=== PATIENT | female | born 1935 | race Caucasian/White ===

== ENCOUNTER 2023-11-27 15:27 | Outpatient (OUT) | payer MEDICARE, OTHER, SELFPAY ==
[2023-11-27 16:06] LABS: Basophils Absolute Auto 0.1 10^3/uL (0.0-0.1); Basophils Percent Auto 0.4 % (0.2-2.0); Eosinophils Absolute Auto 0.2 10^3/uL (0.0-0.7); Eosinophils Percent Auto 1.3 % (0.9-7.0); Hemoglobin 8.9 g/dL (12.0-16.0); Immature Granulocytes Abs Auto 0.05 10^3/uL (0.00-0.03); Immature Granulocytes Pct Auto 0.4 % (0.0-0.5); Lymphocytes Absolute Auto 1.2 10^3/uL (1.2-3.8); Lymphocytes Percent Auto 8.7 % (20.5-60.0); Mean Corpuscular HGB Conc 30.7 g/dL (29.9-35.2); Mean Corpuscular Hemoglobin 31.3 pg (26.7-34.0); Mean Corpuscular Volume 102.1 fL (81.0-99.0); Mean Platelet Volume 11.7 fL (9.5-13.5); Monocytes Absolute Auto 1.1 10^3/uL (0.3-0.8); Monocytes Percent Auto 8.1 % (1.7-12.0); Neutrophils Absolute Auto 11.1 10^3/uL (1.4-6.5); Neutrophils Percent Auto 81.1 % (43.0-75.0); Platelet Count 223 10^3/uL (150-450); Red Blood Count 2.84 10^6/uL (4.20-5.40); Red Cell Distribution Width 14.1 % (11.0-15.0); White Blood Count 13.7 10^3/uL (4.0-11.0)
[2023-11-27 16:39] LABS: Alanine Aminotransferase 16 U/L (14-59); Albumin Globulin Ratio 0.6; Albumin Level 2.5 g/dL (3.4-5.0); Alkaline Phosphatase 39 U/L (46-116); Anion Gap 13.3; Aspartate Amino Transferase 16 U/L (15-37); BUN Creatinine Ratio 28.1; Bilirubin Total 0.7 mg/dL (0.2-1.0); Calcium 8.3 mg/dL (8.5-10.1); Carbon Dioxide 26.8 mmol/L (21.0-32.0); Chloride 104 mmol/L (98-107); Estimated GFR (African America 37 (>=60); Estimated GFR (Non-African Ame 31 (>=60); Free T3 1.52 pg/mL (2.18-3.98); Globulin 3.9 g/dL; Glucose 148 mg/dL (74-106); Potassium 5.1 mmol/L (3.5-5.1); Sodium 139 mmol/L (136-145); Thyroid Stimulating Hormone 0.426 uIU/mL (0.358-3.740); Total Protein 6.4 g/dL (6.4-8.2)
== END 2023-11-27 15:28 | disposition home or self-care (01) ==
LOC: LAB 15:30
PROVIDERS: PCP Family Medicine; Visit Provider Family Medicine
DX: I25.5 Ischemic cardiomyopathy (principal); I10 Essential (primary) hypertension
CPT/HCPCS: 36415; 80053; 83880; 84436; 84443; 84481; 85025

== ENCOUNTER 2025-10-04 16:34 | Observation (INO) | payer MEDICARE, OTHER, SELFPAY ==
--- OUTSIDE RECORDS SUMMARY | 2025-05-05 10:00 | XMS_ITS ---
Author Organization The [facility] in [place] Address [address] [place] [address] Care Team Providers Care Systems Mgr Name Role Phone Hermelindo Martinez Primary Care Provider [phone] REASON FOR VISIT Medicare Wellness Encounters Encounter Location Date Provider Diagnosis [address] [place] [address] 05/05/2025 Hermelindo Martinez Plan Of Treatment No Information Progress Notes * Bernarda LORD JDOB: (89 yo F)Acc No.[id number]:05/05/2025 UNLOCKED PROGRESS NOTE Progress Note Patient: Bernarda LORENZO :?Yared Martinez (TTC), MDDOB:1935???Age: 89 Y???Sex:FemaleDate:05/05/2025Phone:[phone]:[address] [place] [address] [id number] Subjective: * Chief Complaints: * 1 . Medicare Wellness. * Medical History: Objective: * Vitals: Assessment: Plan: * Treatment: * * Electronic signature of Hermelindo Martinez MD, [id number] on 10/04/2025 at 02:59 PM EST Sign off status: PendingVisit Status:?CANC (Cancelled) * Provider: Cheri Martinez MD (TTC) Date: 0 05/05/2025 Generated for Printing/Faxing/eTransmitting on:?10/04/2025 02:59 PM EST
--- OUTSIDE RECORDS SUMMARY | 2025-05-05 10:00 | XMS_ITS ---
Author Organization [facility] in [place] Address [address] [place] [address] Care Team Providers Care Drug Abuse Technician Name Role Phone Hermelindo Martinez Primary Care Provider REASON FOR VISIT Medicare Wellness Encounters Encounter Location Date Provider Diagnosis [facility] [address] [place] [address] 05/05/2025 Hermelindo Martinez Plan Of Treatment Next Appt Details Provider Name:Hermelindo Martinez, 02:30:00 PM, [address] [place], [address], Progress Notes * LORD, Bernarda JDOB: (89 yo F)Acc No.[id number]:05/05/2025 UNLOCKED PROGRESS NOTE Progress Note Patient: Anna LORENZOcy Dennis :?Yared Martinez ([facility]), MDDOB:1935???Age: 89 Y???Sex:FemaleDate:05/05/2025Phone:[phone]:[address] [facility] [id number] Subjective: * Chief Complaints: * 1 . Medicare Wellness. * Medical History: Objective: * Vitals: Assessment: Plan: * Treatment: * * Electronic signature of Hermelindo Martinez MD, [id number] on 10/07/2025 at 02:37 PM EST Sign off status: PendingVisit Status:?CANC (Cancelled) * Provider: Cheri Martinez ([facility])MD Date: 0 05/05/2025 Generated for Printing/Faxing/eTransmitting on:?10/07/2025 02:37 PM EST
--- OUTSIDE RECORDS SUMMARY | 2025-10-03 10:00 | XMS_ITS ---
Author Organization [facility] [place] Address [address] [place] [address] Care Team Providers Care Electric Meter Installer Name Role Phone Hermelindo Martinez Primary Care Provider Allergies Allergen (clinical drug ingredient) Drug/Non Drug Allergy documented on EMR Reaction Allergy Type Onset Date Status oxycodone oxyCODONE HCl vomiting Drug Allergy Activeacetaminophen / oxycodonePercocetvomitingDrug AllergyActiveVicodinvomiting Drug AllergyActive REASON FOR VISIT yearly wellness Medications Medication SIG (Take, Route, Frequency, Duration) Notes Start Date End Date Status Diabetic Shoe - - Daily ActiveEntresto 97-103 MG1 tablet Orally Twice a dayActiveDexcom G6 Veneer Glue Jointer Feedback -as directedActiveDexcom G6 Transmitter -as directedActiveDexcom G6 Sensor -as directedActiveBlood Glucose Meter -Use glucometer to monitor glucose daily DX E11.9; Duration: 365 days5ActiveBasaglar KwikPen 100 UNIT/ML 20 units Subcutaneous at bedtime; Duration: 30 days dx E11.9 ActiveCarvedilol 25 MG1 tablet with food Orally Twice a day; Duration: 90 days ActiveCarafate 1 GM1 tablet on an empty stomach Orally ac and hsActiveCytomel 5 MCG2 tablets Orally Once a day; Duration: 90 days4ActiveAllopurinol 100 MG1 tablet Orally Once a day; Duration: 90 daysActivePlavix 75 MG1 tablet Orally Once a dayActiveLasix 40 MG1 tablet Orally Once a day; Duration: 3 days 5ActiveFerrous Sulfate 325 (65 Fe) MG1 tablet Orally DailyActiveTest Strips -Use 1 strip to monitor glucose daily DX E11.9; Duration: 90 days 5ActivePantoprazole Sodium 40 MG1 tablet Orally BIDActiveIsosorbide Dinitrate 20 MG1 tablet Orally Twice a dayActiveNovoLOG FlexPen 100 UNIT/ML sliding scale 3 units Subcutaneous tid; Duration: 30 days dx: E11.9 ActivePen [place] /16 31G X 8 MMas directedActive Social History Tobacco Use: Social History Observation Description Date Details (start date - stop date) Never Smoker NA - NA Tobacco Use/Smoking Question Answer Notes Patient is a nonsmoker AUDIT-C (Standard) Question Answer Notes Did you have a drink containing alcohol in the p ast year? No [id number] Problems Problem Type SNOMED Code ICD Code Onset Dates Problem Status W/U Status Risk Notes Problem Gastritis (0580190) Gastritis (K29.70) Activeconfirmed Vital Signs Weight 170 lbs 10/03/2025 Height 70 in 10/03/2025 Blood pressure systolic 136 mm Hg 10/03/20 25 Blood pressure diastolic 80 mm Hg 025 BMI 24.39 kg/m2 10/03/2025 Encounters Encounter Location Date Provider Diagnosis [facility] [address] [place] [address] 10/03/2025 Hermelindo Martinez Type 2 diabetes anamaria itus with proliferative diabetic retinopathy with macular edema, bilateral E11.3513 ; Pulmonary hypertension I27.20 ; TIA (transient ischemic attack) G45.9 ; Gastritis K29.70 and CHF (congestive heart failure) I50.9 Assessments Encounter Date Diagnosis (ICD Code) Assessment Notes Treatment Notes Treatment Clinical Notes Section Notes 10/03/2025 Type 2 diabetes anamaria itus with proliferative diabetic retinopathy with macular edema, bilateral (ICD-10 - E11.3513) 10/03/2025Pulmonary hypertension (ICD-10 - I27.20)10/03/2025TIA (transient ischemic attack) (ICD-10 - G45.9)10/03/2025Gastritis (ICD-10 - K29.70)10/03/2025 CHF (congestive heart failure) (ICD-10 - I50.9)seeing cardiologu this week Plan Of Treatment Medication Medication Name Sig Start Date Stop Date Notes Lasix 40 MG 1 tablet Orally Once a day; Duration: 3 d ays 10/03/2025 Pantoprazole Sodium 40 MG1 tablet Orally BIDTreatment Notes Assessment Notes CHF (congestive heart failure) seeing ca rdiologu this week Pending Test Test Name Order Date HEMOGLOBIN A1C (GLYCO) 10/03/2025 IRON, TOTAL 10/03/2025 LIPID PANEL (CHOL/TRIG/HDL/LDL) 10/03/20 25 VITAMIN D, 25 LEVEL (TOTAL) 10/03/2025 Urinalysis Microscopic 10/03/2025 Insulin Level 10/03/2025 High Sensitivity Troponin 10/03/2025 STOOL OCCULT BLOOD 10/03/2025 BNP 10/03/2025 CULTURE URINE 10/03/2025 THYROID PANEL (T4/TSH/FREE T3) CMP (COMP MET COVARRUBIAS) w/eGFR CKD-EPI 2024 CBC WITH DIFF 10/03/2025 Progress Notes * Bernarda LORD DennisDOB: 7 (89 yo F)Acc No.[id number]:10/03/2025 UNLOCKED PROGRESS NOTE Progress Note Patient: Bernarda LORENZO :?Yared Martinez ([facility]), MDDOB:1935???Age: 89 Y???Sex:FemaleDate:10/03/2025Phone:[phone]:[address] [facility], [place], [id number] In:02:49 PM ESTCheck Out:03:48 PM EST Subjective: * Chief Complaints: * 1 . Yearly wellness. * HPI: ???General:? DM - sgare well controlle on insulin SS HTn - stabel here CHF - switching to [facility] GERD - off meds. * ROS: ???EENT:?hearing changes?denies.?visual changes?denies. non-healing mouth sores?denies.?swollen glands or neck lumps?denies.?hoarseness?denies.?sore throat?denies.?difficulty swallowing?denies.?nose bleeds?denies.?nasal congestion?denies.?ear ache?denies.?ear discharge denies.?ringing in ears?denies.?light sensitivity?denies.?eye pain?denies.?blurring?denies.?eye irritation?denies.?double vision?denies. vision loss?denies.?General/Constitutional:?Sweats:?Denies.?Fatigue?denies.?Sleep proble ms?denies.?Anorexia?denies.?Malaise?denies.?Weight loss?denies. Fatigue or Weakness?denies.?Fever or Chills?denies.?Cardiovascular:?Shortness of Breath w/lying flat?denies.?Lightheadedne ss/dizziness?denies.?Chest tightness/ heavy pressure?denies.?Swelling of legs, a nkles, or feet?denies.?Waking up with shortness of breath?denies.?Chest pain&#16 0;denies.?Palpitations?denies.?Weight gain?denies.?Respiratory:?Chronic or frequent cough?denies.?Coughing up blood&#1 60;denies.?Difficulty breathing?denies.?Productive cough?denies.?Snoring&#1 60;denies.?Shortness of breath that awakens from sleep (PND)?denies.?Chest pain? denies.?Sputum production?denies.?Wheezing?denies.?Musculoskeletal:?Joint pain?denies.?Joint Fluid?denies.?Backpain?denies.?Knee pain?denies.?Neck pain?denies.?Joint Stiffness?denies.?Muscle cramps?denies.?Weakness of muscles?denies.?Arthritis?denies.?Muscle aches?denies.?Pain in shoulder(s)?denies.?Swollen joints?denies.? * Medical History: O verweight (BMI 25.0-29.9), At risk for falls, Gout, Acute bronchitis, Ischemic cardiomyopathy, Cardiac LV ejection fraction 21-40%, CAD (coronary artery disease), Severe left ventricular systolic dysfunction, Mitral valve regurgitation, Aortic valve sclerosis, Atrial enlargement, left, Acute non-ST elevation myocardial infarction (NSTEMI), Pulmonary hypertension, TIA (transient ischemic attack), Chronic midline low back pain without sciatica, Cystocele, midline, Well adult, Conductive hearing loss, bilateral, Pseudophakia, Unspecified premature depolarization, Chronic kidney disease, stage III (moderate), Hypertension, Type 2 diabetes mellitus with proliferative diabetic retinopathy with macular edema, bilateral, Osteoarthritis, Status post amputation of toe, CHF (congestive heart failure), Hemorrhoids. * Surgical History: h eart cath 08/2020, colonoscopy 12/2013, EGD- biopsy 11/24/23. * Hospitalization/Major Diagno stic Procedure: h y[pg;ycemia 03/2016, cardiomyopathy 08/2020, dehydration 11/2023. * Family History: F ather: 83 yrs, diagnosed with Cancer. M other: 66 yrs, diagnosed with Kidney Disease. B rother(s): 75 yrs, diagnosed with Kidney Disease. S on(s): alive, diagnosed with Diabetes. D gueroer(s): alive. 4 son(s) , 1 daughter(s) - healthy. . * Social History: ???Tobacco Use:?Tobacco Use/Smoking?Patient is a?nonsmoker ???Drug/Alcohol:?AUDIT-C (Standard)?Did you have a drink containing alcohol in the past year??No ?Points?0 ?Interpretation?Negative * Medications: T aking Allopurinol 100 MG Tablet 1 tablet Orally Once a day , Taking Basaglar KwikPen(Insulin Glargine) 100 UNIT/ML Solution Pen-injector 20 units Subcutaneous at bedtime dx E11.9, Taking Blood Glucose Meter - - Use glucometer to monitor glucose daily DX E11.9 , Taking Carafate(Sucralfate) 1 GM Tablet 1 tablet on an empty stomach Orally ac and hs , Taking Carvedilol 25 MG Tablet 1 tablet with food Orally Twice a day , Taking Cytomel(Liothyronine Sodium) 5 MCG Tablet 2 tablets Orally Once a day , Taking Dexcom G6 Veneer Glue Jointer Feedback(Continuous Glucose Veneer Glue Jointer Feedback) - Device as directed , Taking Dexcom G6 Sensor(Continuous Glucose Sensor) - Miscellaneous as directed , Taking Dexcom G6 Transmitter(Continuous Glucose Transmitter) - Miscellaneous as directed , Taking Diabetic Shoe - As Ordered - Daily , Taking Entresto(Sacubitril- Valsartan) 97-103 MG Tablet 1 tablet Orally Twice a day , Taking Ferrous Sulfate 325 (65 Fe) MG Tablet 1 tablet Orally Daily , Taking Isosorbide Dinitrate 20 MG Tablet 1 tablet Orally Twice a day , Taking NovoLOG FlexPen(Insulin Aspart) 100 UNIT/ML Solution Pen-injector sliding scale 3 units Subcutaneous tid dx: E11.9, Taking Pantoprazole Sodium 40 MG Tablet Delayed Release 1 tablet Orally BID , Taking Pen [place] 5/16 31G X 8 MM Miscellaneous as directed , Taking Plavix(Clopidogrel Bisulfate) 75 MG Tablet 1 tablet Orally Once a day , Taking Test Strips - - Use 1 strip to monitor glucose daily DX E11.9 , Medication List reviewed and reconciled with the patient * Allergies: V icodin: vomiting - Allergy, Percocet: vomiting - Allergy, oxyCODONE HCl: vomiting - Allergy. Objective: * Vitals: W t:170lbs, Ht: 70 in, BP:136/80mm Hg, BMI:24.39Index, Ht-cm: 177.8 cm, Wt-k.11 kg. * Examination: ???Physical Exam: ?GENERAL:?well developed, well nourished, in no acute distress.?HEAD:?normocephalic/atraumatic.?EYES:?pupils equal, round and reactive to light, conjunctivae and sclerae normal.?EARS:?no deformity or lesion of external ear, canals and TM appear normal bilaterally, TM's intact, not inflamed with normal light reflex, hearing grossly normal to conversational speech.?NOSE:?no deformity, discharge, inflammation, or lesions. ?MOUTH:?mucous membranes moist, normal oropharynx and posterior pharynx without lesions or exudates, tongue normal, dentition normal.?NECK:?neck supple, no masses or palpable cervical nodes, trachea midline, thyroid without nodules, masses, tenderness, or enlargement.?CHEST:?no chest wall deformity, no chest wall tenderness. ?LUNGS:?normal respiratory effort and clear to auscultation, no wheezes, rales, or rhonchi, good air exchange.?CARDIO:?regular rate and rhythm, normal S1 and S2, nor murmur, rub, or gallop.?PULSES:?normal capillary refill.?ABDOMEN:?soft, non-distended, non-tender, no masses.?MUSCULOSKELETAL:?no deformity or scoliosis noted, normal range of motion, joints normal, no erythema, edema, effusion, or ecchymosis.?EXTREMITY:?no clubbing, cyanosis, edema, or deformity withnormal ROM in both upper and lower bilateral extremities.?NEUROLOGIC:?grossly normal.?SKIN:?no rashes, ulcerations, or suspicious lesions.?LYMPH NODES:?no cervical adenopathy, nodes normal.?MENTAL STATUS:?alert and oriented x3, normal mood and affect.? Assessment: * Assessment: 1.?Type 2 diabetes mellitus with proliferative diabetic retinopathy with macular edema, bilateral - E11.3513 (Primary)???2.?Pulmonary hypertension - I27.20???3. ?TIA (transient ischemic attack) - G45.9???4.?Gastritis - K29.70? ?5.?CHF (congestive heart failure) - I50.9??? Plan: * Treatment: Refill Pantoprazole Sodium Tablet Delayed Release, 40 MG, 1 tablet, Orally, BID, 60, Refills 11; Start Lasix Tablet, 40 MG, 1 tablet, Orally, Once a day, 3 days, 3 Tablet, Refills 0.?LAB: HEMOGLOBIN A1C (GLYCO) ?LAB: IRON, TOTAL ?LAB: LIPID PANEL (CHOL/TRIG/HDL/LDL) ?LAB: VITAMIN D, 25 LEVEL (TOTAL) ?LAB: Urinalysis Microscopic ?LAB: Insulin Level ?LAB: High Sensitivity Troponin ?LAB: STOOL OCCULT BLOOD ?LAB: BNP ?LAB: CULTURE URINE ?LAB: THYROID PANEL (T4/TSH/FREE T3) ?LAB: CMP (COMP MET COVARRUBIAS) w/eGFR CKD-EPI ?LAB: CBC WITH DIFF2.?Pulmonary hypertension?LAB: HEMOGLOBIN A1C (GLYCO) ?LAB: IRON, TOTAL ?LAB: LIPID PANEL (CHOL/TRIG/HDL/LDL) ?LAB: VITAMIN D, 25 LEVEL (TOTAL) ?LAB: Insulin Level ?LAB: STOOL OCCULT BLOOD ?LAB: THYROID PANEL (T4/TSH/FREE T3) ?LAB: CMP (COMP MET COVARRUBIAS) w/eGFR CKD-EPI ?LAB: CBC WITH DIFF3.?TIA (transient ischemic attack)?LAB: HEMOGLOBIN A1C (GLYCO) ?LAB: IRON, TOTAL ?LAB: LIPID PANEL (CHOL/TRIG/HDL/LDL) ?LAB: VITAMIN D, 25 LEVEL (TOTAL) ?LAB: Insulin Level ?LAB: STOOL OCCULT BLOOD ?LAB: THYROID PANEL (T4/TSH/FREE T3) ?LAB: CMP (COMP MET COVARRUBIAS) w/eGFR CKD-EPI ?LAB: CBC WITH DIFF4.?Gastritis?LAB: HEMOGLOBIN A1C (GLYCO) ?LAB: IRON, TOTAL ?LAB: LIPID PANEL (CHOL/TRIG/HDL/LDL) ?LAB: VITAMIN D, 25 LEVEL (TOTAL) ?LAB: Insulin Level ?LAB: STOOL OCCULT BLOOD ?LAB: THYROID PANEL (T4/TSH/FREE T3) ?LAB: CMP (COMP MET COVARRUBIAS) w/eGFR CKD-EPI ?LAB: CBC WITH DIFF5.?CHF (congestive heart failure)?LAB: HEMOGLOBIN A1C (GLYCO) ?LAB: IRON, TOTAL ?LAB: LIPID PANEL (CHOL/TRIG/HDL/LDL) ?LAB: VITAMIN D, 25 LEVEL (TOTAL) ?LAB: Insulin Level ?LAB: STOOL OCCULT BLOOD ?LAB: THYROID PANEL (T4/TSH/FREE T3) ?LAB: CMP (COMP MET COVARRUBIAS) w/eGFR CKD-EPI ?LAB: CBC WITH DIFF Notes: seeing cardiologu this week?? * Preventive Medicine: ??Screenings/Counseling:?FALL RISK SCREENING?Fall Risk Assessment:?No falls in the past year * * Electronic signature of Hermelindo Martinez MD, [id number] on 10/04/2025 at 02:59 PM EST Sign off status: PendingVisit Status:?CHK (Check Out) * Provider: Cheri Martinez ([facility])MD Date: 1 12/04/2024 Generated for Printing/Faxing/eTransmitting on:?10/04/2025 02:59 PM EST History and Physical Notes * HPI (History of Present Illness) CategorySub-CategoryDetailNotesCategory NotesGeneral DM - sgare well controlle on insulin SS HTn - stabel here CHF - switching to [facility] GERD - off meds Examination CategorySub-CategoryDetailNotesCategory NotesPhysical ExamGENERAL:well developed, well nourished, in no acute distressHEAD:normocephalic/atraumatic EYES:pupils equal, round and reactive to light, conjunctivae and sclerae normal EARS:no deformity or lesion of external ear, canals and TM appear normal bilaterally, TM's intact, not inflamed with normal light reflex, hearing grossly normal to conversational speechNOSE:no deformity, discharge, inflammation, or lesionsMOUTH:mucous membranes moist, normal oropharynx and posterior pharynx without lesions or exudates, tonguenormal, dentition normalNECK:neck supple, no masses or palpable cervical nodes, trachea midline, thyroid without nodules, masses, tenderness, or enlargementCHEST:no chest wall deformity, no chest wall tendernessLUNGS:normal respiratory effort and clear to auscultation, no wheezes, rales, or rhonchi, good air exchangeCARDIO:regular rate and rhythm, normal S1 and S2, nor murmur, rub, or gallopPULSES:normal capillary refillABDOMEN:soft, non-distended, non-tender, no massesRECTAL:MUSCULOSKELETAL:no deformity or scoliosis noted, normal range of motion, joints normal, no erythema, edema, effusion, or ecchymosisEXTREMITY:no clubbing, cyanosis, edema, or deformity with normal ROM in both upper and lower bilateral extremitiesNEUROLOGIC:grossly normalSKIN:no rashes, ulcerations, or suspicious lesionsLYMPH NODES:no cervical adenopathy, nodes normalMENTAL STATUS:alert and oriented x3, normal mood and affect
--- OUTSIDE RECORDS SUMMARY | 2025-10-03 10:00 | XMS_ITS ---
Author Organization The [facility] in [place] Address [address] [place] [address] Care Team Providers Care Marketing Planner Name Role Phone Hermelindo Martinez Primary Care Provider Allergies Allergen (clinical drug ingredient) Drug/Non Drug Allergy documented on EMR Reaction Allergy Type Onset Date Status oxycodone oxyCODONE HCl vomiting Drug Allergy Activeacetaminophen / oxycodonePercocetvomitingDrug AllergyActiveVicodinvomiting Drug AllergyActive Results Component Value Reference Range Notes BNP Reviewed date:10/05/2025 05:55:34 PM Interpretation: Performing Lab: Notes/Report: [facility] , Pro B Type Natriuretic Pept 2056.0 <=1800.0 p g/mL RESULTS CALLED TO ANA LILIA SHEA RN @BY Jacqueline Gomes at 2306 Performing Lab: see note ML - [facility] REASON FOR VISIT yearly wellness Medications Medication SIG (Take, Route, Frequency, Duration) Notes Start Date End Date Status Diabetic Shoe - - Daily ActiveEntresto 97-103 MG1 tablet Orally Twice a dayActiveDexcom G6 Research Environmental Scientist -as directedActiveDexcom G6 Transmitter -as directedActiveDexcom G6 [...] tid; Duration: 30 days dx: E11.9 ActivePen Toluca 03/04 31G X 8 MMas directedActive Social History Tobacco Use: Social History Observation Description Date Details (start date - stop date) Never Smoker NA - NA Tobacco Use/Smoking Question Answer Notes Patient is a nonsmoker AUDIT-C (Standard) Question Answer Notes Did you have a drink containing alcohol in the p ast year? No Ftnjit3BaubwrvbkoidnfNgtgnxkb Problems Problem Type SNOMED Code ICD Code Onset Dates Problem Status W/U Status Risk Notes Problem Gastritis (9793316) Gastritis (K29.70) Activeconfirmed Vital Signs Weight 170 lbs 10/03/2025 Height 70 in 10/03/2025 Blood pressure systolic 136 mm Hg 10/03/20 25 Blood pressure diastolic 80 mm Hg 025 BMI 24.39 kg/m2 10/03/2025 Encounters Encounter Location Date Provider Diagnosis [facility] [address] [place] [address] 10/03/2025 Hermelindo Martinez Type 2 diabetes anamaria [...] Sensitivity Troponin 10/03/2025 STOOL OCCULT BLOOD 10/03/2025 CULTURE URINE 10/03/2025 THYROID PANEL (T4/TSH/FREE T3) CMP (COMP MET COVARRUBIAS) w/eGFR CKD-EPI 2024 CBC WITH DIFF 10/03/2025 Next Appt Details Provider Name:Hermelindo Braden Michelle, 02:30:00 PM, [address] [place], [address], Progress Notes * Bernarda LORDDOB: 7 (89 yo F)Acc No.[id number]:10/03/2025 Progress Note Patient: Anna LORENZOsoraida Collins :?Yared Barcenas Michelle ([facility]), MDDOB:1935???Age: 89 Y???Sex:FemaleDate:10/03/2025Phone:[phone]:[address] [facility], [place], [id number] In:02:49 PM ESTCheck Out:03:48 PM EST Subjective: * Chief Complaints: * Y early wellness * HPI: ???General:? DM - sgare well controlle on insulin SS HTn - stabel here CHF - switching to [facility] GERD - off meds. * ROS: ???EENT:?hearing [...] of muscles?denies.?Arthritis?denies.?Muscle aches?denies.?Pain in shoulder(s)?denies.?Swollen joints?denies.? * Active Problem List H90.0 Conductive hearing l oss, bilateral Modified On:02/15/2023 Status:pgmxkjcweO44.5Ischemic cardiomyopathy Modified On:11/27/2023 Status:ruuktuoffB65.40Unspecified premature depolarization Modified On:02/15/2023 Status:ddqfuaxakB11.11Cystocele, midline Modified On:02/15/2023 Status:tbxwldvkvS05Pdrxvvepqqyb Modified On:12/26/2023 Status:akrsbwuavO81.90Osteoarthritis Modified On:02/15/2023 Status:hgwfjomwlM72.9CHF (congestive heart failure) Modified On:02/15/2023 Status:dhmfuvbzcE37.10CAD (coronary artery disease) Modified On:02/15/2023 Status:hprtakbfsT16.9Gout Modified On:02/15/2023 Status:wnekhmopeL27.9TIA (transient ischemic attack) Modified On:02/15/2023 Status:rrmygysvnY81.0Mitral valve regurgitation Modified On:02/15/2023 Status:ykzpbtoyvM73.9Acute bronchitis Modified On:02/15/2023 Status:nucbwlmthQ42.1Pseudophakia Modified On:02/15/2023 Status:tbdqivticQ23.00Well adult Modified On:02/15/2023 Status:weuleiwrrK90.9Hemorrhoids Modified On:02/15/2023 Status:mkexyzcvtM21.3Overweight (BMI 25.0-29.9) Modified On:02/15/2023 Status:hizfhogfzZ42.8Aortic valve sclerosis Modified On:02/15/2023 Status:wfvfetlibF84.9Severe left ventricular systolic dysfunction Modified On:02/15/2023 Status:lmsmmrtymI88.81At risk for falls Modified On:02/15/2023 Status:wmlxcatjfV65.7Atrial enlargement, left Modified On:02/15/2023 Status:vioorndamW13.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, bilateral Modified On:02/19/2023 Status:exkrgfpsjM97.4Acute non-ST elevation myocardial infarction (NSTEMI) Modified On:02/15/2023 Status:uxegutczeG81.20Pulmonary hypertension Modified On:02/15/2023 Status:esyktnpjuE70.30Cardiac LV ejection fraction 21-40% Modified On:02/15/2023 Status:jsdzbkwmrJ70.429Status post amputation of toe Modified On:02/15/2023 Status:fcyimtkslY69.30Chronic kidney disease, stage III (moderate) Modified On:02/15/2023 Status:ymasidepyH82.50Chronic midline low back pain without sciatica Modified On:02/15/2023 Status:bapkgbjzvC72.89Pulmonary vascular congestion Modified On:11/24/2023 Status:jtzcbyiuvO87.70Gastritis Modified On:10/03/2025 Status:confirmed * Medical History: * Surgical History: h eart cath 08/2020colonoscopy 12/2013EGD- biopsy 11/24/23 * Hospitalization/Major Diagno stic Procedure: h y[pg;ycemia 03/2016cardiomyopathy 08/2020dehydration 11/2023 * Family History: F ather: 83 yrs, [...] past year??No ?Points?0 ?Interpretation?Negative * Medications: T akingAllopurinol 100 MG Tablet 1 tablet Orally Once a day Basaglar KwikPen(Insulin Glargine) 100 UNIT/ML Solution Pen-injector 20 units Subcutaneous at bedtime dx E11.9Blood Glucose Meter - - Use glucometer to monitor glucose daily DX E11.9 Carafate(Sucralfate) 1 GM Tablet 1 tablet on an empty stomach Orally ac and hs Carvedilol 25 MG Tablet 1 tablet with food Orally Twice a day Cytomel(Liothyronine Sodium) 5 MCG Tablet 2 tablets Orally Once a day Dexcom G6 Research Environmental Scientist(Continuous Glucose Research Environmental Scientist) - Device as directed Dexcom G6 Sensor(Continuous Glucose Sensor) - Miscellaneous as directed Dexcom G6 Transmitter(Continuous Glucose Transmitter) - Miscellaneous as directed Diabetic Shoe - As Ordered - Daily Entresto(Sacubitril-Valsartan) 97-103 MG Tablet 1 tablet Orally Twice a day Ferrous Sulfate 325 (65 Fe) MG Tablet 1 tablet Orally Daily Isosorbide Dinitrate 20 MG Tablet 1 tablet Orally Twice a day NovoLOG FlexPen(Insulin Aspart) 100 UNIT/ML Solution Pen-injector sliding scale 3 units Subcutaneous tid dx: E11.9Pantoprazole Sodium 40 MG Tablet Delayed Release 1 tablet Orally BID Pen Toluca 5/16 31G X 8 MM Miscellaneous as directed Plavix(Clopidogrel Bisulfate) 75 MG Tablet 1 tablet Orally Once a day Test Strips - - Use 1 strip to monitor glucose daily DX E11.9 Medication List reviewed and reconciled with the patientTaking Allopurinol 100 MG Tablet 1 tablet Orally Once a day Taking Basaglar KwikPen(Insulin Glargine) 100 UNIT/ML Solution Pen-injector 20 units Subcutaneous at bedtime dx E11.9Taking Blood Glucose Meter - - Use glucometer to monitor glucose daily DX E11.9 Taking Carafate(Sucralfate) 1 GM Tablet 1 tablet on an empty stomach Orally ac and hs Taking Carvedilol 25 MG Tablet 1 tablet with food Orally Twice a day Taking Cytomel(Liothyronine Sodium) 5 MCG Tablet 2 tablets Orally Once a day Taking Dexcom G6 Research Environmental Scientist(Continuous Glucose Research Environmental Scientist) - Device as directed Taking Dexcom G6 Sensor(Continuous Glucose Sensor) - Miscellaneous as directed Taking Dexcom G6 Transmitter(Continuous Glucose Transmitter) - Miscellaneous as directed Taking Diabetic Shoe - As Ordered - Daily Taking Entresto(Sacubitril-Valsartan) 97-103 MG Tablet 1 tablet Orally Twice a day Taking Ferrous Sulfate 325 (65 Fe) MG Tablet 1 tablet Orally Daily Taking Isosorbide Dinitrate 20 MG Tablet 1 tablet Orally Twice a day Taking NovoLOG FlexPen(Insulin Aspart) 100 UNIT/ML Solution Pen-injector sliding scale 3 units Subcutaneous tid dx: E11.9Taking Pantoprazole Sodium 40 MG Tablet Delayed Release 1 tablet Orally BID Taking Pen Toluca 5/16 31G X 8 MM Miscellaneous as directed Taking Plavix(Clopidogrel Bisulfate) 75 MG Tablet 1 tablet Orally Once a day Taking Test Strips - - Use 1 strip to monitor glucose daily DX E11.9 Medication List reviewed and reconciled with the patient * Allergies: V icodin: vomiting - AllergyPercocet: vomiting - AllergyoxyCODONE HCl: vomiting - Allergyno[Allergies Verified] Objective: * Vitals: W t:170lbs, Ht: 70 [...] DIFF Notes: seeing cardiologu this week?? * Procedure Codes: * Preventive Medicine: ??Screenings/Counseling:?FALL RISK SCREENING?Fall Risk Assessment:?No falls in the past year * * Sign off status: CompletedVisit Status:?CHK (Check Out) true * Provider: Cheri Martinez ([facility])MD Date: 1 12/04/2024 Generated for Printing/Faxing/eTransmitting on:?10/07/2025 02:37 PM EST History and Physical Notes * HPI (History of Present Illness) CategorySub-CategoryDetailNotesCategory NotesGeneral DM - sgare well controlle on insulin SS HTn - stabel here CHF - switching to [facility] GERD - off meds Examination CategorySub-CategoryDetailNotesCategory NotesPhysical [...]
--- OUTSIDE RECORDS SUMMARY | 2025-10-03 10:38 | XMS_ITS ---
Author Organization [facility] in [place] Address [address] [place] [address] Care Team Providers Care Sugar Cane Farm Manager Name Role Phone Fabiánremedios Hermelindo Primary Care Provider Reason For Referral Diagnosis 1 CHF (congestive hear t failure) (I50.9) Diagnosis 2 Encounter for Medica re annual wellness exam (Z00.00) Referral Organization [facility] Referring Provider First Name Hermelindo Referring Provider Last Name Michelle Referring Provider Speciality [facility] icine Referred Provider Specialty Home Health Agency Referral Priority Routine REASON FOR VISIT home health Encounters Encounter Location Date Provider Diagnosis [facility] [address] [place] [address] 10/03/2025 Hermelindo Martinez CHF (congestive hear t failure) I50.9 and Weakness R53.1 Assessments Encounter Date Diagnosis (ICD Code) Assessment Notes Treatment Notes Treatment Clinical Notes Section Notes 10/03/2025 CHF (congestive heart failure) ( ICD-10 - I50.9) 10/03/2025Weakness (ICD-10 - R53.1) Plan Of Treatment Referrals Referral Date Details 10/03/2025 10/03/2025 Progress Notes * Bernarda LORDDOB: (89 yo F)Acc No.[id number]:10/03/2025 Patient:?Bernarda LORD :1935???Age:89 Y???Sex:FemalePhone:[phone] Address:[address] [place], [address] Subjective: * Chief Complaints: * H ome health * Medical History: * Surgical History: * Hospitalization/Major Diagno stic Procedure: * Medications: Objective: * Vitals: * Physical Examination: ??? Assessment: * Assessment: 1.?CHF (congestive heart failure) - I50.9 (Primary)???2.?Weakness - R53.1&# 160;?? Plan: * Treatment: ? Referral To:Home Health Agency ?Reason: 2.?Others? Referral To:Home Health Agency ?Reason: * Procedure Codes: * true * Date:?Generated for Printing/Faxing/eTransmitting on:?10/04/2025 05:44 PM EST Consultation Request Notes Referral Date Referring Provider Referred Provider Not es 10/03/2025 Hermelindo Martinez ,
--- OUTSIDE RECORDS SUMMARY | 2025-10-03 10:38 | XMS_ITS ---
Author Organization [facility] in [place] Address [address] [place] [address] Care Team Providers Care Machine Farmworker Name Role Phone Michelle Hermelindo Primary Care Provider Reason For Referral Diagnosis 1 CHF (congestive hear t failure) (I50.9) Diagnosis 2 Encounter for Medica re annual wellness exam (Z00.00) Referral Organization [facility] Referring Provider First Name Hermelindo Referring Provider Last Name Michelle Referring Provider Speciality [facility] icine Referred Provider Specialty Home Health Agency Referral Priority Routine REASON FOR VISIT home health Encounters Encounter Location Date Provider Diagnosis [facility] [address] [place] [address] 10/03/2025 Hermelindo Martinez CHF (congestive hear t failure) I50.9 and Weakness R53.1 Assessments Encounter Date Diagnosis (ICD Code) Assessment Notes Treatment Notes Treatment Clinical Notes Section Notes 10/03/2025 CHF (congestive heart failure) ( ICD-10 - I50.9) 10/03/2025Weakness (ICD-10 - R53.1) Plan Of Treatment Referrals Referral Date Details 10/03/2025 10/03/2025 Next Appt Details Provider Name:Hermelindo Braden Fabiánremedios, 02:30:00 PM, [address] [place], [address], Progress Notes * Bernarda LORD JDOB: [birth year] (89 yo F)Acc No.[id number]:10/03/2025 Patient:?Bernarda LORD :1935???Age:89 Y???Sex:FemalePhone:[phone] Address:[address] [place] [address], [place], [address] Subjective: * Chief Complaints: * H ome [...] Codes: * true * Date:?Generated for Printing/Faxing/eTransmitting on:?10/07/2025 02:37 PM EST Consultation Request Notes Referral Date Referring Provider Referred Provider Not es 10/03/2025 Hermelindo Martinez ,
[2025-10-04] VITALS (12 sets, daily range): BP systolic 115–158; BP diastolic 67–83; PULSE 96–115; TEMP 36.6; O2SAT 86–98; BMI 24.0
--- OUTSIDE RECORDS SUMMARY | 2025-10-04 08:35 | XMS_ITS | Encounter Summary ---
Author Organization [facility] Address [address] [place] [address], [address] [place] [address] Care Team Providers Care Brainer Name Role Phone Yared Martinez MD Primary Care Provider [phone] Encounter Details DateTypeDepartmentCare Team (Latest Contact Info)Lqxptbgnssr75/16/2025 8:35 AM EST - 10/04/2025 11:59 PM ESTHospital Encounter [facility] [address] [place] [address] Arrived Discharge Disposition: Home or Self Care Social History Tobacco UseTypesPacks/DayYears UsedDateSmoking Tobacco: NeverSmokeless Tobacco: NeverAlcohol UseStandard Drinks/WeekCommentsNever0 (1 standard drink = 0.6 oz pure alcohol)AUDIT-CAnswerDate RecordedQ1: How often do you have a drink containing alcohol?Never1Average Number of DrinksNot on file02/28/2021 Frequency of Binge DrinkingNot on file1CommentsUnknownSex and Gender InformationValueDate RecordedSex Assigned at BirthNot on fileLegal Sex Jsoaxf0911/29/2012 2:43 PM ESTGender IdentityNot on fileSexual OrientationNot on filedocumented as of this encounter Plan of Treatment Not on file documented as of this encounter Procedures Procedure NamePriorityDate/TimeAssociated DiagnosisCommentsURINALYSIS, MICRO Kstzhow3610/04/2025 9:20 AM EST CBC WITH AUTO NQDPCTJZZVRQEvoodnu23/16/2025 9:20 AM EST SFDCMXPLMoovwrd19/16/2025 9:20 AM EST VITAMIN D 25 XSXAIYWZxghcyv72/16/2025 9:20 AM EST INSULIN, JKTZJCimsubn29/16/2025 9:20 AM EST CULTURE, RLNPNFontaxa10/16/2025 9:20 AM EST QUKZszgowg56/16/2025 9:20 AM EST BRAIN NATRIURETIC GOMLWONAxuyoil99/16/2025 9:20 AM EST APJDUsgtjzp22/16/2025 9:20 AM EST HEMOGLOBIN Y1UAwjtzys51/16/2025 9:20 AM EST LIPID JPBTBPmksqgr48/16/2025 9:20 AM EST documented in this encounter Results * (ABNORMAL) Culture, Urine (10/04/2025 9:20 AM EST)ComponentValueRef RangeTest MethodAnalysis TimePerformed AtPathologist SignatureSpecimen Description.URINE 10/04/2025 9:20 AM E[facility]ERCY LABORATORIESCultureESCHERICHIA COLI >100,000 CFU/ML Identification by MALDI-TOF(A)10/04/2025 9:20 AM [facility] CultureESCHERICHIA COLI >100,000 CFU/ML 2ND COLONY TYPE Identification by MALDI-TOF10/04/2025 9:20 AM ESTMERCY LABORATORIESSpecimen (Source)Anatomical Location / LateralityCollection Method / VolumeCollection TimeReceived Time Urine10/04/2025 9:20 AM EST10/04/2025 9:21 AM EST Narrative OrganismAntibioticMethodSusceptibilityEscherichia coliampicillinBACTERIAL SUSCEPTIBILITY PANEL JUDD <=2: Sensitive Escherichia coliceFAZolin (systemic)BACTERIAL SUSCEPTIBILITY PANEL JUDD <=1: Sensitive Escherichia coliceFAZolin (urine)BACTERIAL SUSCEPTIBILITY PANEL JUDD <=1: Sensitive Escherichia coliceFAZolin (urine)BACTERIAL SUSCEPTIBILITY PANEL JUDD Urine specific interpretations are for uncomplicated UTIs only.: Sensitive Escherichia colicefTRIAXoneBACTERIAL SUSCEPTIBILITY PANEL JUDD <=0.25: Sensitive Escherichia coligentamicinBACTERIAL SUSCEPTIBILITY PANEL JUDD <=1: Sensitive Escherichia colilevofloxacinBACTERIAL SUSCEPTIBILITY PANEL JUDD <=0.12: Sensitive Escherichia colinitrofurantoinBACTERIAL SUSCEPTIBILITY PANEL JUDD <=16: Sensitive Escherichia colipiperacillin-tazobactamBACTERIAL SUSCEPTIBILITY PANEL JUDD <=4: Sensitive Escherichia colitrimethoprim-sulfamethoxazoleBACTERIAL SUSCEPTIBILITY PANEL JUDD <=20: Sensitive Escherichia coliampicillinBACTERIAL SUSCEPTIBILITY PANEL JUDD Resistant Escherichia coliceFAZolin (systemic)BACTERIAL SUSCEPTIBILITY PANEL JUDD <=1: Sensitive Escherichia coliceFAZolin (urine)BACTERIAL SUSCEPTIBILITY PANEL JUDD <=1: Sensitive Escherichia coliceFAZolin (urine)BACTERIAL SUSCEPTIBILITY PANEL JUDD Urine specific interpretations are for uncomplicated UTIs only.: Sensitive Escherichia colicefTRIAXoneBACTERIAL SUSCEPTIBILITY PANEL JUDD <=0.25: Sensitive Escherichia coligentamicinBACTERIAL SUSCEPTIBILITY PANEL JUDD <=1: Sensitive Escherichia colilevofloxacinBACTERIAL SUSCEPTIBILITY PANEL JUDD <=0.12: Sensitive Escherichia colinitrofurantoinBACTERIAL SUSCEPTIBILITY PANEL JUDD <=16: Sensitive Escherichia colipiperacillin-tazobactamBACTERIAL SUSCEPTIBILITY PANEL JUDD 32: Intermediate Escherichia colitrimethoprim-sulfamethoxazoleBACTERIAL SUSCEPTIBILITY PANEL JUDD <=20: Sensitive Authorizing ProviderResult TypeResult StatusDougwild Martinez MDMICROBIOLOGY - GENERAL ORDERABLESFinal ResultPerforming OrganizationAddressCity/State/ZIP Code Phone Number [facility] [address] [place] [address], [facility] [phone] [facility] [address] [place], [place] [address] [phone] * Vitamin D 25 Hydroxy (10/04/2025 9:20 AM EST)ComponentValueRef RangeTest MethodAnalysis TimePerformed AtPathologist SignatureVit D, 25-Gecljnr48.230.0 - 100.0 ng/mL10/04/2025 9:20 AM ESTMERCY LABORATORIESComment: Reference Range: Vitamin D status ? Range Deficiency <20 ng/mL Mild Deficiency ? 20-30 ng/mL Sufficiency ?30-100 ng/mL Toxicity >100 ng/mL Specimen (Source)Anatomical Location / LateralityCollection Method / Volume Collection TimeReceived Time10/04/2025 9:20 AM EST10/04/2025 9:21 AM EST Narrative Authorizing ProviderResult TypeResult StatusYared Martinez MDCHEMISTRY ORDERABLES Final ResultPerforming OrganizationAddressCity/State/ZIP CodePhone Number [facility] [address] [place] [address], [facility] [phone] [place] [id number] [phone] * (ABNORMAL) Urinalysis, Micro (10/04/2025 9:20 AM EST)ComponentValueRef Range Test MethodAnalysis TimePerformed AtPathologist SignatureWBC, UA50 TO 1000 /HPF10/04/2025 9:20 AM [facility] LABRBC, UA2 TO 50 - 2 /HPF 10/04/2025 9:20 AM M Squared FilmsFLORENCE COMMUNITY HEALTHCAREAgency EntourageARD LABBacteria, UA1+(A)None10/04/2025 9:20 AM [facility] LAB-10/04/2025 9:20 AM M Squared FilmsFLORENCE COMMUNITY HEALTHCAREAgency EntourageARD LABSpecimen (Source)Anatomical Location / LateralityCollection Method / Volume Collection TimeReceived Time10/04/2025 9:20 AM EST10/04/2025 9:21 AM EST Narrative Authorizing ProviderResult TypeResult Xavier Martinez MDURINE ORDERABLES Final ResultPerforming OrganizationAddressCity/State/ZIP CodePhone Number [facility] [address] [place] [address], [facility] [phone] * TSH (10/04/2025 9:20 AM EST)ComponentValueRef RangeTest MethodAnalysis Time Performed AtPathologist SignatureTSH0.450.27 - 4.20 uIU/mL10/04/2025 9:20 AM [facility] LABSpecimen (Source)Anatomical Location / Laterality Collection Method / VolumeCollection TimeReceived Time10/04/2025 9:20 AM EST 10/04/2025 9:21 AM EST Narrative Authorizing ProviderResult TypeResult StatusYared Martinez MDCHEMISTRY ORDERABLES Final ResultPerforming OrganizationAddressCity/State/ZIP CodePhone Number [facility] [address] [phone] * (ABNORMAL) Troponin (10/04/2025 9:20 AM EST)ComponentValueRef RangeTest Method Analysis TimePerformed AtPathologist SignatureTroponin, High Zywdwohndye48(H)0 - 14 ng/L112/05/2024 9:20 AM [facility] LABComment:High Sensitivity Troponin values cannot be compared with other Troponin methodologies.Specimen (Source)Anatomical Location / LateralityCollection Method / VolumeCollection TimeReceived Time10/04/2025 9:20 AM EST10/04/2025 9:21 AM EST Narrative Authorizing ProviderResult TypeResult Statuslisseth Braden Michelle MDCHEMISTRY ORDERABLES Final ResultPerforming OrganizationAddressCity/State/ZIP CodePhone Number [facility] [address] [place] [phone] [phone] * (ABNORMAL) Lipid Panel (10/04/2025 9:20 AM EST)ComponentValueRef RangeTest MethodAnalysis TimePerformed AtPathologist SignatureCholesterol, Lxmlk4067 - 199 mg/dL10/04/2025 9:20 AM ESTHappy Bits Company LABORATORIESComment: Cholesterol Guidelines: <200 Desirable 200-240 ??Borderline >240 Undesirable HDL33(L)>40 mg/dL10/04/2025 9:20 AM ESTMERBright Industry LABORATORIESComment: HDL Guidelines: <40 Undesirable 40-59 ?Borderline >59 Desirable LDL Jgixssknyxg309(H)0 - 100 mg/dL10/04/2025 9:20 AM [facility]ATOR[facility] Comment: LDL Guidelines: <100 Desirable 100-129 ?? Near to/above Desirable 130-159 ?? Borderline >159 Undesirable Direct (measured) LDL and calculated LDL are not interchangeable tests. Chol/HDL Ratio4.6<5.012 9:20 AM [facility]ER[facility] XMJZXIIOELRVOevypkjlfnhcl16<150 mg/dL10/04/2025 9:20 AM ESTMERBright Industry LABORATORIESComment: Triglyceride Guidelines: <150 Desirable 150-199 ??Borderline 200-499 ??High >499 Very high Based on AHA Guidelines for fasting triglyceride, July 2012. KWIH516 - 30 mg/dL10/04/2025 9:20 AM [facility] LABORATORIESSpecimen (Source) Anatomical Location / LateralityCollection Method / VolumeCollection Time Received Time10/04/2025 9:20 AM EST10/04/2025 9:21 AM EST Narrative Authorizing ProviderResult TypeResult StatusYared Martinez MDCHEMISTRY ORDERABLES Final ResultPerforming OrganizationAddressCity/State/ZIP CodePhone Number [facility] [address] [place] [address], [facility] [phone] [facility] [address] [place] [address], [facility] [phone] * Insulin, total (10/04/2025 9:20 AM EST)ComponentValueRef RangeTest Method Analysis TimePerformed AtPathologist SignatureInsulin OmfosjnWYL04/16/2025 9:20 AM [facility] LABInsulin5.7mU/L112/05/2024 9:20 AM [facility] LABORATORIESInsulin Reference Range:10/04/2025 9:20 AM [employer] Comment: Fastin.6-24.9 30 min: ??20-112 60 min: ??29-88 90 min: ??26-84 120 min: 22-79 Specimen (Source)Anatomical Location / LateralityCollection Method / Volume Collection TimeReceived Time10/04/2025 9:20 AM EST10/04/2025 9:21 AM EST Narrative Authorizing ProviderResult TypeResult Xavier Martinez MDCHEMISTRY ORDERABLES Final ResultPerforming OrganizationAddressty/State/ZIP CodePhone Number [facility] [address] [place] [address], [facility] [phone] [employer] [address] [place] [address], [facility] [phone] * (ABNORMAL) Hemoglobin A1C (10/04/2025 9:20 AM EST)ComponentValueRef RangeTest MethodAnalysis TimePerformed AtPathologist SignatureHemoglobin A1C6.3(H)4.0 - 6.0 %10/04/2025 9:20 AM ESTMERBright Industry LABORATORIESEstimated Avg Lqhtnud059zw/dL 10/04/2025 9:20 AM ESTFLORENCE COMMUNITY HEALTHCAREBright Industry LABORATORIESComment: The ADA and AACC recommend providing the estimated average glucose result to permit better patient understanding of their HBA1c result. Specimen (Source)Anatomical Location / LateralityCollection Method / Volume Collection TimeReceived Time10/04/2025 9:20 AM EST10/04/2025 9:21 AM EST Narrative Authorizing ProviderResult TypeResult StatusYared Martinez MDCHEMISTRY ORDERABLES Final ResultPerforming OrganizationAddressCity/State/ZIP CodePhone Number [facility] [address] [place] [phone], [facility] [phone] [facility] [employer] [address] [place] [address] * Iron (10/04/2025 9:20 AM EST)ComponentValueRef RangeTest MethodAnalysis Time Performed AtPathologist VzjxcxjxuIthp3031 - 145 ug/dL10/04/2025 9:20 AM EST [employer] LABORATORIESSpecimen (Source)Anatomical Location / LateralityCollection Method / VolumeCollection TimeReceived Time10/04/2025 9:20 AM EST10/04/2025 9:21 AM EST Narrative Authorizing ProviderResult TypeResult StatusYared Martinez MDCHEMISTRY ORDERABLES Final ResultPerforming OrganizationAddressty/State/ZIP CodePhone Number [facility]Key[facility] [address] [place] [phone], [facility] [phone] [facility] [employer] [address] [place] [address] * (ABNORMAL) CBC with Auto Differential (10/04/2025 9:20 AM EST)ComponentValue Ref RangeTest MethodAnalysis TimePerformed AtPathologist WnvgvnmykYGJ19.43.5 - 11.0 k/uL10/04/2025 9:20 AM [facility]ITALDevshop LABRBC3.85(L)4.00 - 5.20 m/uL10/04/2025 9:20 AM M Squared FilmsFLORENCE COMMUNITY HEALTHCAREDevshop JKIMdmlbflbqx17.112.0 - 16.0 g/dL10/04/2025 9:20 AM [facility] OMA UBFCpbzsxoydu24.836.0 - 46.0 % 10/04/2025 9:20 AM [facility] O[facility] MUHZGS55.280.0 - 100.0 fL10/04/2025 9:20 AM [facility] O[facility] UBKPNJ17.426.0 - 34.0 pg10/04/2025 9:20 AM [facility] O[facility] EQKERYO65.031.0 - 37.0 g/dL10/04/2025 9:20 AM [facility] OMA OUNDPK79.312.1 - 15.2 %10/04/2025 9:20 AM [facility] OMA OOCEdrpavrjs994704 - 450 k/uL10/04/2025 9:20 AM [facility] OMA IWGELS11.36.0 - 12.0 fL10/04/2025 9:20 AM [facility] O[facility] LAB Neutrophils %77(H)47 - 75 %10/04/2025 9:20 AM [facility] O[facility] LAB Lymphocytes %13(L)15 - 40 %10/04/2025 9:20 AM [facility] O[facility] LAB Monocytes %64 - 8 %10/04/2025 9:20 AM [facility] OMA LABEosinophils % 30 - 5 %10/04/2025 9:20 AM [facility] OMA LABBasophils %10 - 2 % 10/04/2025 9:20 AM [facility] OMA LABImmature Granulocytes %00 - 5 % 10/04/2025 9:20 AM [facility] O[facility] LABNeutrophils Absolute7.90(H)2.5 - 7.0 k/uL10/04/2025 9:20 AM [facility] OMA LABLymphocytes Absolute1.40 1.00 - 4.80 k/uL10/04/2025 9:20 AM [facility]zt[facility]ch OMA LABMonocytes Absolute0.670.00 - 1.00 k/uL10/04/2025 9:20 AM [facility]ch [facility] LAB Eosinophils Absolute0.350.00 - 0.40 k/uL10/04/2025 9:20 AM ESTMERAgency EntourageARD LABBasophils Absolute0.060.00 - 0.20 k/uL10/04/2025 9:20 AM [facility]ITALDevshop LABImmature Granulocytes Absolute0.030.00 - 0.30 k/uL10/04/2025 9:20 AM [facility]ITALAgency [facility]ourageARD LABSpecimen (Source)Anatomical Location / LateralityCollection Method / VolumeCollection TimeReceived Time10/04/2025 9:20 AM EST10/04/2025 9:21 AM EST Narrative Authorizing ProviderResult TypeResult StatusYared Martinez MDHEMATOLOGY ORDERABLESFinal ResultPerforming OrganizationAddressCity/State/ZIP CodePhone Number [facility] [address] [phone] * (ABNORMAL) Brain Natriuretic Peptide (10/04/2025 9:20 AM EST)ComponentValueRef RangeTest MethodAnalysis TimePerformed AtPathologist SignatureNT Pro-BNP2,052 (H)<300 pg/mL10/04/2025 9:20 AM [facility]PITALAgency EntourageARD LABComment: An age-independent cutoff point of 300 pg/ml has a 98% negative predictive value excluding acute heart failure. Specimen (Source)Anatomical Location / LateralityCollection Method / Volume Collection TimeReceived Time10/04/2025 9:20 AM EST10/04/2025 9:21 AM EST Narrative Authorizing ProviderResult TypeResult Xavier Martinez MDCHEMISTRY ORDERABLES Final ResultPerforming OrganizationAddressty/State/ZIP CodePhone Number [facility] [address] [facility] [address] [phone] documented in this encounter Visit Diagnoses Not on filedocumented in this encounter Care Teams Team MemberRelationshipSpecialtyStart DateEnd Yared Martinez MD [address] [place] [address] PCP - GeneralFamily Medicine02/25/23documented as of this encounter
--- OUTSIDE RECORDS SUMMARY | 2025-10-04 08:35 | XMS_ITS | Encounter Summary ---
Author Organization [facility] Address [address] [place] [address], [address] [place] [address] Care Team Providers Care Online Advertising Director Name Role Phone Yared Martinez MD Primary Care Provider [phone] Encounter Details DateTypeDepartmentCare Team (Latest Contact Info)Gqhnkjwqqlc25/16/2025 8:35 AM ESTHospital Encounter [facility] [address] [place] [address] Arrived Social History Tobacco UseTypesPacks/DayYears UsedDateSmoking Tobacco: NeverSmokeless Tobacco: NeverAlcohol UseStandard Drinks/WeekCommentsNever0 (1 standard drink = 0.6 oz pure alcohol)AUDIT-CAnswerDate RecordedQ1: How often do you have a drink containing alcohol?Never1Average Number of DrinksNot on file02/28/2021 Frequency of Binge DrinkingNot on file1CommentsUnknownSex and Gender InformationValueDate RecordedSex Assigned at BirthNot on fileLegal Sex Pdnhkg7311/29/2012 2:43 PM ESTGender IdentityNot on fileSexual OrientationNot on filedocumented as of this encounter Plan of Treatment NameTypePriorityAssociated DiagnosesDate/TimeCulture, UrineMicrobiologyRoutine 10/04/2025 9:20 AM ESTNameTypePriorityAssociated DiagnosesOrder ScheduleCulture, UrineMicrobiologyRoutineOnce for 1 Occurrences starting 10/04/2025 until 10/04/2025documented as of this encounter Procedures Procedure NamePriorityDate/TimeAssociated DiagnosisCommentsURINALYSIS, MICRO Ydlqfmo1710/04/2025 9:20 AM EST CBC WITH AUTO NKFQPWMMIKHDHjvgjwf56/16/2025 9:20 AM EST SWLWCSUCSerivaj52/16/2025 9:20 AM EST VITAMIN D 25 QFOWOMPEgsjibw88/16/2025 9:20 AM EST INSULIN, ZFYQNThoihtd11/16/2025 9:20 AM EST XTZCsmraex08/16/2025 9:20 AM EST BRAIN NATRIURETIC HXIUKGPWjddzch36/16/2025 9:20 AM EST OQFEEescwqi29/16/2025 9:20 AM EST HEMOGLOBIN A1LIolkhpb55/16/2025 9:20 AM EST LIPID RPSZSVvfloda76/16/2025 9:20 AM EST documented in this encounter Results * Vitamin D 25 Hydroxy (10/04/2025 9:20 AM EST)ComponentValueRef RangeTest MethodAnalysis TimePerformed AtPathologist SignatureVit D, 25-Tpwdxlx79.230.0 - 100.0 ng/mL10/04/2025 9:20 AM ESTMERCY LABORATORIESComment: Reference Range: Vitamin D status ? Range Deficiency <20 ng/mL Mild Deficiency ? 20-30 ng/mL Sufficiency ?30-100 ng/mL Toxicity >100 ng/mL Specimen (Source)Anatomical Location / LateralityCollection Method / Volume Collection TimeReceived Time10/04/2025 9:20 AM EST10/04/2025 9:21 AM EST Narrative Authorizing ProviderResult TypeResult StatusDougwild Martinez MDCHEMISTRY ORDERABLES Final ResultPerforming OrganizationAddressCity/State/ZIP CodePhone Number [facility] [address] [place] [address], [place] [phone] [place] [address] * (ABNORMAL) Urinalysis, Micro (10/04/2025 9:20 AM EST)ComponentValueRef Range Test MethodAnalysis TimePerformed AtPathologist SignatureWBC, UA50 TO 1000 /HPF10/04/2025 9:20 AM ESTSAGE [facility]OR[facility]PITALShowMe VIdeoke LABRBC, UA2 TO 50 - 2 /HPF 10/04/2025 9:20 AM [facility]Show[facility] VIdeoke LABBacteria, UA1+(A)None10/04/2025 9:20 AM BlackStratusSAGE [facility]ORIAL [facility]PITALShowMe VIdeoke LAB-10/04/2025 9:20 AM BlackStratusSAGE [facility]ITALShowMe VIdeoke LABSpecimen (Source)Anatomical Location / LateralityCollection Method / Volume Collection TimeReceived Time10/04/2025 9:20 AM EST10/04/2025 9:21 AM EST Narrative Authorizing ProviderResult TypeResult StatusYared Martinez MDURINE ORDERABLES Final ResultPerforming OrganizationAddressCity/State/ZIP CodePhone Number [facility] [address] [phone] * TSH (10/04/2025 9:20 AM EST)ComponentValueRef RangeTest MethodAnalysis Time Performed AtPathologist SignatureTSH0.450.27 - 4.20 uIU/mL10/04/2025 9:20 AM BlackStratusSAGE MEMORIAL HOSPITALsvh24.deARD LABSpecimen (Source)Anatomical Location / Laterality Collection Method / VolumeCollection TimeReceived Time10/04/2025 9:20 AM EST 10/04/2025 9:21 AM EST Narrative Authorizing ProviderResult TypeResult Xavier Martinez MDCHEMISTRY ORDERABLES Final ResultPerforming OrganizationAddressty/State/ZIP CodePhone Number [facility] [address] [facility] [address] [phone] * (ABNORMAL) Troponin (10/04/2025 9:20 AM EST)ComponentValueRef RangeTest Method Analysis TimePerformed AtPathologist SignatureTroponin, High Vgdjjimrpoj77(H)0 - 14 ng/L112/05/2024 9:20 AM [facility]ITALsvh24.deARD LABComment:High Sensitivity Troponin values cannot be compared with other Troponin methodologies.Specimen (Source)Anatomical Location / LateralityCollection Method / VolumeCollection TimeReceived Time10/04/2025 9:20 AM EST10/04/2025 9:21 AM EST Narrative Authorizing ProviderResult TypeResult StatusHermelindowild Braden Michelle MDCHEMISTRY ORDERABLES Final ResultPerforming OrganizationAddressCity/State/ZIP CodePhone Number [facility] [address] [place] [address], [place] [phone] * (ABNORMAL) Lipid Panel (10/04/2025 9:20 AM EST)ComponentValueRef RangeTest MethodAnalysis TimePerformed AtPathologist SignatureCholesterol, Qglal4324 - 199 mg/dL10/04/2025 9:20 AM [facility] LABORATORIESComment: Cholesterol Guidelines: <200 Desirable 200-240 ??Borderline >240 Undesirable HDL33(L)>40 mg/dL10/04/2025 9:20 AM [facility] LABORATORIESComment: HDL Guidelines: <40 Undesirable 40-59 ?Borderline >59 Desirable LDL Jiiiucpszjg321(H)0 - 100 mg/dL10/04/2025 9:20 AM [facility] Comment: LDL Guidelines: <100 Desirable 100-129 ?? Near to/above Desirable 130-159 ?? Borderline >159 Undesirable Direct (measured) LDL and calculated LDL are not interchangeable tests. Chol/HDL Ratio4.6<5.012 9:20 AM ESTMERMontage [employer]ent AWTWYQMBUNCTNloqckwjfpgcz58<150 mg/dL10/04/2025 9:20 AM [facility] LABORATORIESComment: Triglyceride Guidelines: <150 Desirable 150-199 ??Borderline 200-499 ??High >499 Very high Based on AHA Guidelines for fasting triglyceride, July 2012. FSQA765 - 30 mg/dL10/04/2025 9:20 AM [facility] LABORATORIESSpecimen (Source) Anatomical Location / LateralityCollection Method / VolumeCollection Time Received Time10/04/2025 9:20 AM EST10/04/2025 9:21 AM EST Narrative Authorizing ProviderResult TypeResult StatusYared Martinez MDCHEMISTRY ORDERABLES Final ResultPerforming OrganizationAddressCity/State/ZIP CodePhone Number [facility] [address] [place] [address], [place] [phone] [phone] * Insulin, total (10/04/2025 9:20 AM EST)ComponentValueRef RangeTest Method Analysis TimePerformed AtPathologist SignatureInsulin ZfgedghGOC92/16/2025 9:20 AM ESTMERCY [employer] OMA LABInsulin5.7mU/L112/05/2024 9:20 AM ESTMERCY LABORATORIESInsulin Reference Range:10/04/2025 9:20 AM [facility] Comment: Fastin.6-24.9 30 min: ??20-112 60 min: ??29-88 90 min: ??26-84 120 min: 22-79 Specimen (Source)Anatomical Location / LateralityCollection Method / Volume Collection TimeReceived Time10/04/2025 9:20 AM EST10/04/2025 9:21 AM EST Narrative Authorizing ProviderResult TypeResult StatusYared Martinez MDCHEMISTRY ORDERABLES Final ResultPerforming OrganizationAddressCity/State/ZIP CodePhone Number [facility] [address] [place] [address] [phone] [phone] * (ABNORMAL) Hemoglobin A1C (10/04/2025 9:20 AM EST)ComponentValueRef RangeTest MethodAnalysis TimePerformed AtPathologist SignatureHemoglobin A1C6.3(H)4.0 - 6.0 %10/04/2025 9:20 AM ESTMERCY LABORATORIESEstimated Avg Lpxekmm722wb/dL 10/04/2025 9:20 AM ESTMERCY LABORATORIESComment: The ADA and AACC recommend providing the estimated average glucose result to permit better patient understanding of their HBA1c result. Specimen (Source)Anatomical Location / LateralityCollection Method / Volume Collection TimeReceived Time10/04/2025 9:20 AM EST10/04/2025 9:21 AM EST Narrative Authorizing ProviderResult TypeResult StatusYared Martinez MDCHEMISTRY ORDERABLES Final ResultPerforming OrganizationAddressCity/State/ZIP CodePhone Number [facility] [address] [place] [address], [place] [phone] [address] [place] [address] * Iron (10/04/2025 9:20 AM EST)ComponentValueRef RangeTest MethodAnalysis Time Performed AtPathologist GfhtxoatlXocl3806 - 145 ug/dL10/04/2025 9:20 AM EST 4Cable TVSpecimen (Source)Anatomical Location / LateralityCollection Method / VolumeCollection TimeReceived Time10/04/2025 9:20 AM EST10/04/2025 9:21 AM EST Narrative Authorizing ProviderResult TypeResult StatusDougwild Martinez MDCHEMISTRY ORDERABLES Final ResultPerforming OrganizationAddressty/State/ZIP CodePhone Number [facility]ITALC[facility] CodeARD [facility] [address] [place] [address], [place] [phone] [address] [place] [address] * (ABNORMAL) CBC with Auto Differential (10/04/2025 9:20 AM EST)ComponentValue Ref RangeTest MethodAnalysis TimePerformed AtPathologist WoycdbgrgKVU06.43.5 - 11.0 k/uL10/04/2025 9:20 AM OmnireliantARD LABRBC3.85(L)4.00 - 5.20 m/uL10/04/2025 9:20 AM ESTSAGE MEMORIAL HOSPITALsvh24.deARD UEBCacceftuod18.112.0 - 16.0 g/dL10/04/2025 9:20 AM ESTSAGE MEMORIAL HOSPITALsvh24.deARD HZEWjfgldiago91.836.0 - 46.0 % 10/04/2025 9:20 AM ESTSAGE MEMORIAL HOSPITALsvh24.deARD KZEPGA78.280.0 - 100.0 fL10/04/2025 9:20 AM ESTSAGE MEMORIAL HOSPITALsvh24.deARD FAFGTS99.426.0 - 34.0 pg10/04/2025 9:20 AM EST [facility]ARD EWIITST73.031.0 - 37.0 g/dL10/04/2025 9:20 AM ESTCore StixARD TZMRYH00.312.1 - 15.2 %10/04/2025 9:20 AM ESTSAGE [facility]OSPITALCloudTags OMA CSUIgarvzeev690917 - 450 k/uL10/04/2025 9:20 AM ESTS[facility]OSPITALCloudTags O[facility] RBPGQA38.36.0 - 12.0 fL10/04/2025 9:20 AM ESTS[facility]PITALCloudTags [facility] LAB Neutrophils %77(H)47 - 75 %10/04/2025 9:20 AM ESTS[facility]PITALCloudTags [facility] LAB Lymphocytes %13(L)15 - 40 %10/04/2025 9:20 AM ESTS[facility]PITALCloudTags [facility] LAB Monocytes %64 - 8 %10/04/2025 9:20 AM ESTS[facility]PITALCloudTags OMA LABEosinophils % 30 - 5 %10/04/2025 9:20 AM ESTS[facility]PITALCloudTags OMA LABBasophils %10 - 2 % 10/04/2025 9:20 AM BlackStratusSAGE [facility]ORIAL [facility]OSPITALCloudTags OMA LABImmature Granulocytes %00 - 5 % 10/04/2025 9:20 AM BlackStratusSAGE [facility]ORIAL [facility]OSPITALCloudTags OMA LABNeutrophils Absolute7.90(H)2.5 - 7.0 k/uL10/04/2025 9:20 AM ESTS[facility]PITALCloudTags OMA LABLymphocytes Absolute1.40 1.00 - 4.80 k/uL10/04/2025 9:20 AM BlackStratusSAGE [facility]ORIAL [facility]OSPITALCloudTags OMA LABMonocytes Absolute0.670.00 - 1.00 k/uL10/04/2025 9:20 AM ESTS[facility]PITALCloudTags [facility] LAB Eosinophils Absolute0.350.00 - 0.40 k/uL10/04/2025 9:20 AM ESTS[facility]PITALCloudTags OMA LABBasophils Absolute0.060.00 - 0.20 k/uL10/04/2025 9:20 AM ESTS[facility]PITALCloudTags OMA LABImmature Granulocytes Absolute0.030.00 - 0.30 k/uL10/04/2025 9:20 AM [employer] OMA LABSpecimen (Source)Anatomical Location / LateralityCollection Method / VolumeCollection TimeReceived Time10/04/2025 9:20 AM EST10/04/2025 9:21 AM EST Narrative Authorizing ProviderResult TypeResult StatusDolisseth Braden Hoy MDHEMATOLOGY ORDERABLESFinal ResultPerforming OrganizationAddressCity/State/ZIP CodePhone Number [facility] [address] [phone] * (ABNORMAL) Brain Natriuretic Peptide (10/04/2025 9:20 AM EST)ComponentValueRef RangeTest MethodAnalysis TimePerformed AtPathologist SignatureNT Pro-BNP2,052 (H)<300 pg/mL10/04/2025 9:20 AM ESTMERUNC HEALTH CHATHAMARD LABComment: An age-independent cutoff point of 300 pg/ml has a 98% negative predictive value excluding acute heart failure. Specimen (Source)Anatomical Location / LateralityCollection Method / Volume Collection TimeReceived Time10/04/2025 9:20 AM EST10/04/2025 9:21 AM EST Narrative Authorizing ProviderResult TypeResult StatusYared Martinez MDCHEMISTRY ORDERABLES Final ResultPerforming OrganizationAddressCity/State/ZIP CodePhone Number [facility] [address] [phone] documented in this encounter Visit Diagnoses Not on filedocumented in this encounter Care Teams Team MemberRelationshipSpecialtyStart DateEnd Yared Martinez MD [address] [place] [address] PCP - GeneralFamily Medicine02/25/23documented as of this encounter
--- NOTE | 2025-10-04 16:57 | ECG_ITS ---
The [facility] Test Date: 2025-10-04 Pat Name: ANAND AMAYA Department: Room: - Gender: Female Nursing Home Physician: : 1935 Requested By: [id number] Order Number: [id number] Colin MD: GARFIELD GREEN M.D. Measurements Intervals [place] Rate: 114 P: 46 RI: 152 QRS: -22 QRSD: 88 T: 73 QT: 320 QTc: 388 Interpretive Statements Sinus tachycardia with premature ventricular contractions 3114 Cannot rule out anterior myocardial infarction, age undetermined 8102 Low QRS voltage in chest leads 9150 abnormal ECG Compared to ECG 09/23/2021 00:06:20 Myocardial infarct finding now present Low QRS voltage now present Sinus rhythm no longer present Electronically Signed On 10-04-2025 19:54:34 EST by GARFIELD GREEN M.D.
--- NOTE | 2025-10-04 17:31 | XR_ITS ---
The [address] [address] Patient Name: ANAND AMAYA MRN: [id number] date: 1935 Sex: F Assigned Patient Location: ER Current Patient Location: ED.MAIN Accession/Order Number: [id number] Exam Date: 10/04/2025 17:38 Report Date: 10/04/2025 18:40 At the request of: RAINA HUANG MD Procedure: XR chest 1V XR chest 1V 10/04/2025 5:41 PM SIGNS AND SYMPTOMS: Cough, history of heart failure PROTOCOL: Frontal radiograph of the chest COMPARISON: 09/23/2021 FINDINGS: The trachea is midline. There is cardiomegaly. There is perihilar vascular prominence, interstitial prominence, and hazy bilateral airspace opacity. The bony thorax is intact. XR/XR chest 1V IMPRESSION: Findings suggest congestive heart failure. Impression dictated by: Chad Gillette M.D. 10/04/2025 6:40 PM Dictation Location: [place] [address] Electronically authenticated by: [id number] Y Date: 10/04/2025 18:40
--- NOTE | 2025-10-04 17:32 | ED_ITS ---
HPI - Recheck/Abnormal Lab/Rx General Chief Complaint: Recheck/Abnormal Lab/Rx Stated Complaint: LAB CHECK Time Seen by Provider: 10/04/25 17:03 Source: patient Mode of arrival: Wheelchair Limitations comment: Hard of hearing History of Present Illness HPI narrative: The patient is presented to the ER after she was evaluated by her primary care yesterday for a regular checkup she did not have any complaint of shortness of breath she does have a history of congestive heart failure with according to the daughter at the bedside she had ejection fraction of 26% at a certain point The patient denies any chest pain nausea vomiting difficulty breathing or any leg swelling And she denies any dizziness Related Data Allergies Allergy/AdvReac Type Severity Reaction Status Date / Time acetaminophen (From Percocet) Allergy Vomiting Verified 10/04/25 16:46 adhesive tape Allergy Rash Verified 10/04/25 16:46 hydrocodone (From Vicodin) Allergy Vomiting Verified 10/04/25 16:46 oxycodone Allergy Vomiting Verified 10/04/25 16:46 Review of Systems ROS Status of ROS 10 or more systems reviewed and unremark able except as noted in history and below PFSH PFSH Social History Little interest or pleasure in doing things: not at all Feeling down, depressed, or hopeless: not at all Exam Narrative Exam Narrative: Nurses notes and vital signs reviewed and patient is not hypoxic. General: Well-appearing and in no apparent distress. Skin: Warm, dry, no pallor noted. No rash. Head: Normocephalic, atraumatic. Neck: Supple, non-tender. Cardiovascular: Regular Rate and Rhythm without murmur, gallop or rub. Respiratory: No accessory muscle use or respiratory distress. Lungs crackles can be heard in the left side. Back: No midline thoracic or lumbar vertebral tenderness. No CVA tenderness Musculoskeletal: normal ROM, no calf or popliteal tenderness, no lower extremity edema/swelling GI: Abdomen is soft, non-distended. Normal bowel sounds. No masses appreciated. No tenderness to palpation. No rebound, guarding, or rigidity noted. Neurological: A&O x4. No cranial nerve dysfunction observed. No truncal ataxia. Moves all extremities. Sensation intact. Psychiatric: Cooperative and interactive. Normal mood and affect. Constitutional Vital Signs, click to edit/add: Last Vital Signs Temp 97.8 F 10/04/25 16:46 Pulse 115 H 10/04/25 16:46 Resp 16 10/04/25 16:46 BP 158/72 H 10/04/25 16:46 Pulse Ox 97 10/04/25 16:46 O2 Del Method Room Air 10/04/25 16:46 Course Vital Signs Vital signs: Vital Signs Temperature 97.8 F 10/04/25 16:46 Pulse Rate 115 H 10/04/25 16:46 Respiratory Rate 16 10/04/25 16:46 Blood Pressure 158/72 H 10/04/25 16:46 Pulse Oximetry 97 10/04/25 16:46 Oxygen Delivery Method Room Air 10/04/25 16:46 Temperature 97.8 F 10/04/25 16:46 Pulse Rate 115 H 10/04/25 16:46 Respiratory Rate 16 10/04/25 16:46 Blood Pressure 158/72 H 10/04/25 16:46 Pulse Oximetry 97 10/04/25 16:46 Oxygen Delivery Method Room Air 10/04/25 16:46 MDM - Recheck/Abnormal Lab/Rx MDM Narrative Medical decision making narrative: The patient EKG in the ER showing sinus tachycardia with a heart rate of [address] ST depression The blood workup obtained from the primary care doctor office shows elevated BNP above 2052 Also troponin 48 with a reference of 0-14 The patient CBC shows no leukocytosis of white blood cell of 10.5 and hemoglobin of 12.1 The patient had a chest x-ray ordered in addition to chemistry and troponin Awaiting the results of the workup and after that we will discuss with Dr. Denny or [facility] pulmonologist intensivist The patient care will be transferred to Dr. Leyva Lab Data Labs: Lab Results 10/04/25 Range/Units 17:43 Sodium 136 (136-145) mmol/L Potassium 4.9 (3.5-5.1) mmol/L Chloride 110 H (98-107) mmol/L Carbon Dioxide 14.5 L (21.0-32.0) mmol/L Anion Gap 16.4 BUN 59.0 H (7.0-18.0) mg/dL Creatinine 1.71 H (0.55-1.02) mg/dL Est GFR ( Amer) 34 L (>=60 mL/min/1.73m^2) Est GFR (Non-Af Amer) 28 L (>=60 mL/min/1.73m^2) BUN/Creatinine Ratio 34.5 Glucose 203 H (74-106) mg/dL Calcium 9.1 (8.5-10.1) mg/dL Discharge Plan Discharge Patient Disposition: Still a Patient
--- OUTSIDE RECORDS SUMMARY | 2025-10-04 17:44 | XMS_ITS | Patient Health Record ---
Author Organization [facility] in [place] Address [address] [place] [address] Care Team Providers Care Legislative Advocate Name Role Phone Hermelindo Martinez Primary Care Provider [phone] Allergies Allergen (clinical drug ingredient) Drug/Non Drug Allergy documented on EMR Reaction Allergy Type Onset Date Status oxycodone oxyCODONE HCl vomiting Drug Allergy Activeacetaminophen / oxycodonePercocetvomitingDrug AllergyActiveVicodinvomiting Drug AllergyActive Results Component Value Reference Range Notes T4 Reviewed date:08/18/2025 05:01:07 PM Interpretation: Performing Lab:[facility], [address] [place] [address] PH:[phone] Notes/Report: Thyroxine T4 4.3 4.5-11.7 ug/dL VD25 ([facility]) Reviewed date:08/18/2025 05:01:07 PM Interpretation: Performing Lab:[facility], [address] [place] [address] PH:[phone] Notes/Report:Vitamin D 25 OH30.330.0-100.0 ng/mL Reference Range: Vitamin D status Range Deficiency <20 ng/mL Mild Deficiency 20-30 ng/mL Sufficiency 30-100 ng/mL Toxicity >100 ng/mL CBC AND AUTO DIFF * Reviewed date:08/18/2025 12:10:30 PM Interpretation: Performing Lab:[facility], [address] [place] [address] PH:[phone] Notes/Report:WBC Count10.13.5-11.0 k/uLRBC Count3.864.00-5.20 m/cQFjgmucvmfb21.1 12.0-16.0 g/jNJftnccnqym35.236.0-46.0 %MCV96.480.0-100.0 fLMCH31.326.0-34.0 pg MCHC32.531.0-37.0 g/dLRDW13.712.1-15.2 %Platelet Bprtt308367-734 k/uLMPV10.66.0- 12.0 fLNeutrophil (Seg)7347-75 %Zzsqmpipjt9782-24 %Cmdidfaa51-1 %Gsekiuyyok62-6 %Uijoypoj71-3 %Immature Ohalnynzrvb11-2 %Abs.Neutrophil (Seg)7.382.5-7.0 k/uL Abs. Lymph1.651.00-4.80 k/uLAbs. Monocyte0.660.00-1.00 k/uLAbs. Eosinophil0.28 0.00-0.40 k/uLAbs. Basophil0.060.00-0.20 k/uLAbs.Imm.Granulocyte0.040.00-0.30 k/uLCOMPREHENSIVE METABOLIC PANEL Reviewed date:08/18/2025 12:10:30 PM Interpretation: Performing Lab:[facility], [facility] [address] [place] [address] PH:[phone] Notes/Report:NA (Sodium)505495-924 mmol/LK (Potassium)5.23.7-5.3 mmol/LChloride 59592-801 mmol/WNU03111-07 mmol/LAnion Jha859-32 mmol/HPodxush58334-81 mg/dLBUN (Urea N)468-23 mg/dLCreatinine1.40.5-0.9 mg/pBwWZQ16>60 mL/min/1.73m2 These results are not intended for use in patients <18 years of age. eGFR results are calculated without a race factor using the 2020 CKD-EPI equation. Careful clinical correlation is recommended, particularly when comparing to results calculated using previous equations. The CKD-EPI equation is less accurate in patients with extremes of muscle mass, extra-renal metabolism of creatine, excessive creatine ingestion, or following therapy that affects renal tubular secretion. Kgufzwo71.98.6-10.4 mg/dLProtein, Total7.06.4-8.3 g/dLAlbumin3.63.5-5.2 g/dL Albumin/Glob Ratio1.11.0-2.5Bilirubin, Total0.50.3-1.2 mg/dLAlkaline Xcui2044- 104 U/TACG191-81 U/LAST16<32 U/LFREE T3 Reviewed date:08/18/2025 05:01:07 PM Interpretation: Performing Lab:[facility], [address] [place] [address] PH:[phone] Notes/Report:T3, Free2.832.00-4.40 pg/mLHGB A1C (GLYCO-HGB) Reviewed date:08/18/2025 05:01:07 PM Interpretation: Performing Lab:[facility], [address] [place] [address] PH:[phone] Notes/Report:Hemoglobin A1C6.94.0-6.0 %Estimated Ave Okmg862 The ADA and AACC recommend providing the estimated average glucose result topermit better patient understanding of their HBA1c result.LIPID PANEL Reviewed date:08/18/2025 05:01:07 PM Interpretation: Performing Lab:[facility], [address] [place] [address] PH:[phone] Notes/Report:Kxyahupmhwz5212-656 mg/dL Cholesterol Guidelines: <200 Desirable 200-240 Borderline >240 Undesirable Cholesterol,HDL46>40 mg/dL HDL Guidelines: <40 Undesirable 40-59 Borderline >59 Desirable Cholesterol,UAL957-629 mg/dL LDL Guidelines: <100 Desirable 100-129 Near to/above Desirable 130-159 Borderline >159 Undesirable Direct (measured) LDL and calculated LDL are not interchangeable tests. Chol/HDL Ratio3.3<5.7Qrijlzeakrvom79<150 mg/dL Triglyceride Guidelines: <150 Desirable 150-199 Borderline 200-499 High >499 Very high Based on AHA Guidelines for fasting triglyceride, July 2012. Cholesterol,MZVK618-01 mg/dLTSH Reviewed date:08/18/2025 12:10:30 PM Interpretation: Performing Lab:[facility], [address] [place] [address] PH:[phone] Notes/Report:Thyroid Stim. Horm.1.180.27-4.20 uIU/mLVD25 ([facility]) (Not yet reviewed by provider) Interpretation: Performing Lab:[facility], [address] [place] [address] PH:[phone] Notes/Report:Vitamin D 25 OH33.230.0-100.0 ng/mL Reference Range: Vitamin D status Range Deficiency <20 ng/mL Mild Deficiency 20-30 ng/mL Sufficiency 30-100 ng/mL Toxicity >100 ng/mL IRON (Not yet reviewed by provider) Interpretation: Performing Lab:[facility], [address] [place] [address] PH:[phone] Notes/Report:Nsbs5112-327 ug/dLINSULIN (Not yet reviewed by provider) Interpretation: Performing Lab:[facility], [address] [place] [address] PH:[phone] Notes/Report:Collection Info.UNKInsulin5.7Reference Range Fastin.6-24.9 30 min: 20-112 60 min: 29-88 90 min: 26-84 120 min: 22-79 LIPID PANEL (Not yet reviewed by provider) Interpretation: Performing Lab:[facility], [address] [place] [address] PH:[phone] Notes/Report:Kkyrekkjmcl8270-878 mg/dL Cholesterol Guidelines: <200 Desirable 200-240 Borderline >240 Undesirable Cholesterol,HDL33>40 mg/dL HDL Guidelines: <40 Undesirable 40-59 Borderline >59 Desirable Cholesterol,CVP1688-551 mg/dL LDL Guidelines: <100 Desirable 100-129 Near to/above Desirable 130-159 Borderline >159 Undesirable Direct (measured) LDL and calculated LDL are not interchangeable tests. Chol/HDL Ratio4.6<5.9Knnkxawrlgeqp42<150 mg/dL Triglyceride Guidelines: <150 Desirable 150-199 Borderline 200-499 High >499 Very high Based on AHA Guidelines for fasting triglyceride, July 2012. Cholesterol,PNOI677-00 mg/dLBRN NATRIURETIC PEP Reviewed date:10/04/2025 03:05:06 PM Interpretation: Performing Lab:[facility], [address] [place] [address] PH:[phone] Notes/Report:Pro-KZY6770 An age-independent cutoff point of 300 pg/ml has a 98% negative predictive<300 pg/mLvalue excluding acute heart failure.CBC AND AUTO DIFF * Reviewed date:10/04/2025 03:05:06 PM Interpretation: Performing Lab:[facility], [address] [place] [address] PH:[phone] Notes/Report:WBC Count10.43.5-11.0 k/uLRBC Count3.854.00-5.20 m/pWPwzudacfpi43.1 12.0-16.0 g/yJVognlzthfh54.836.0-46.0 %MCV98.280.0-100.0 fLMCH31.426.0-34.0 pg MCHC32.031.0-37.0 g/dLRDW14.312.1-15.2 %Platelet Wvzqu576684-981 k/uLMPV10.36.0- 12.0 fLNeutrophil (Seg)7747-75 %Pbneydbvgx0556-39 %Ewexruki79-0 %Vwrdhncphq50-2 %Duddhrss27-3 %Immature Xnudtdhaaqy50-6 %Abs.Neutrophil (Seg)7.902.5-7.0 k/uL Abs. Lymph1.401.00-4.80 k/uLAbs. Monocyte0.670.00-1.00 k/uLAbs. Eosinophil0.35 0.00-0.40 k/uLAbs. Basophil0.060.00-0.20 k/uLAbs.Imm.Granulocyte0.030.00-0.30 k/uLHGB A1C (GLYCO-HGB) Reviewed date:10/04/2025 03:05:06 PM Interpretation: Performing Lab:[facility], [address] [place] [address] PH:[phone] Notes/Report:Hemoglobin A1C6.34.0-6.0 %Estimated [address]860 The ADA and AACC recommend providing the estimated average glucose result topermit better patient understanding of their HBA1c result.Urinalysis Microscopic Reviewed date:10/04/2025 03:05:06 PM Interpretation: Performing Lab:[facility], [address] [place] [address] PH:[phone] Notes/Report:Urine WBC's50 TO 1000 /HPFUrine RBC's2 TO 50-2 /HPFBacteria1+NONE TROPONIN-T Reviewed date:10/04/2025 03:05:06 PM Interpretation: Performing Lab:[facility], [address] [place] [address] PH:[phone] Notes/Report:Troponin, High Sens48 High Sensitivity Troponin values cannot be compared with other Troponin0-14 ng/Lmethodologies.TSH Reviewed date:10/04/2025 03:05:06 PM Interpretation: Performing Lab:[facility], [address] [place] [address] PH:[phone] Notes/Report:Thyroid Stim. 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 [facility] to md cardio Diagnosis 1 Hypertension (I10) Diagnosis 2 Ischemic cardiomyopa thy (I25.5) Diagnosis 3 CHF (congestive hear t failure) (I50.9) Referral Organization [facility] Referring Provider First Name Hermelindo Referring Provider Last Name [facility] Referring Provider [facility] Referred Provider [facility] Cardiology, [facility] Referred Provider Specialty Cardiology Referral Priority Routine Diagnosis 1 CHF (congestive hear t failure) (I50.9) Diagnosis 2 Encounter for Medica re annual wellness exam (Z00.00) Referral Organization [facility] Referring Provider First Name Hermelindo Referring Provider Last Name [facility] Referring Provider [facility] Referred Provider [facility] Referral Priority Routine Medications Medication SIG (Take, Route, Frequency, Duration) Notes Start Date End Date Status Carvedilol 25 MG 1 tablet with food Orally Twice a day; Duration: 90 days ActivePlavix 75 MG1 tablet Orally Once a dayActiveCarafate 1 GM1 tablet on an empty stomach Orally ac and hsActivePen Willcox /16 31G X 8 MMas directed ActiveLasix 40 MG1 tablet Orally Once a day; Duration: 3 days5Active Dexcom G6 Feather Washer -as directedActiveFerrous Sulfate 325 (65 Fe) MG1 tablet Orally DailyActiveCytomel 5 MCG2 tablets Orally Once a day; Duration: 90 days 4ActiveTest Strips -Use 1 strip to monitor glucose daily DX E11.9; Duration: 90 days5ActiveDexcom G6 Transmitter -as directedActiveDexcom G6 Sensor -as directedActivePantoprazole Sodium 40 MG1 tablet Orally BIDActive Diabetic Shoe -- DailyActiveCefdinir 300 MG2 capsules Orally once daily; Duration: 10 days5ActiveAllopurinol 100 MG1 tablet Orally Once a day; Duration: 90 daysActiveIsosorbide Dinitrate 20 MG1 tablet Orally Twice a day ActiveEntresto 97-103 MG1 tablet Orally Twice a dayActiveBlood Glucose Meter - Use glucometer to monitor glucose daily DX E11.9; Duration: 365 days07/19/2025 ActiveBasaglar KwikPen 100 UNIT/ML 20 units Subcutaneous at bedtime; Duration: 30 days dx E11.9 ActiveNovoLOG FlexPen 100 UNIT/ML sliding scale 3 units Subcutaneous tid; Duration: 30 days dx: E11.9 Active Immunizations Vaccine Route Administration Date Status Comme nts Flu, Fluad (22667) 65 yrs+, single-dose syringe (7091-9350) Unknown 08/14/2022 Administered Flu, Fluzone High-Dose (6497-9434) (56712) 65 yrs+Pngsdfj0308/26/2020Administered Flu, Fluzone High-Dose (0088-6751) (02609) 65 yrs+Tzmxlvv06/10/2021Administered Pneumococcal (Prevnar 13)Riqwsos5709/05/2017AdministeredZoster (Zostavax)Unknown 10/19/2013dministered Social History Tobacco Use: Social History Observation Description Date Details (start date - stop date) Never Smoker NA - NA Tobacco Use/Smoking Question Answer Notes Patient is a nonsmoker Alcohol Screen (Audit-C) Question Answer Notes Did you have a drink containing alcohol in the p ast year? No Ctufgn2PwvtlybmidwdneRgnphqrcOZNCC-I (Standard) Question Answer Notes Did you have a drink containing alcohol in the p ast year? No Yrmebr7OyejwbyfjviwdjFwluejbx Problems Problem Type SNOMED Code ICD Code Onset Dates Problem Status W/U Status Risk Notes Problem Conductive hearing l oss, bilateral (572013131) Conductive hearing loss, bilateral (H90.0) ActiveconfirmedProblemIschemic cardiomyopathy (922112348)Ischemic cardiomyopathy (I25.5)ActiveconfirmedProblemPremature beats (47064448)Unspecified premature depolarization (I49.40)ActiveconfirmedProblemMidline cystocele (162890728) Cystocele, midline (N81.11)ActiveconfirmedProblemHypertension (44613196) Hypertension (I10)ActiveconfirmedProblemOsteoarthritis (272775836)Osteoarthritis (M19.90)ActiveconfirmedProblemCongestive heart failure (25951598)CHF (congestive heart failure) (I50.9)ActiveconfirmedProblemCoronary artery disease (96994408) CAD (coronary artery disease) (I25.10)ActiveconfirmedProblemGout (06845651)Gout (M10.9)ActiveconfirmedProblemTransient ischemic attack (259859126)TIA (transient ischemic attack) (G45.9)ActiveconfirmedProblemMitral valve regurgitation (83513410)Mitral valve regurgitation (I34.0)ActiveconfirmedProblemAcute bronchitis (63805574)Acute bronchitis (J20.9)ActiveconfirmedProblemPseudophakia (67626685)Pseudophakia (Z96.1)ActiveconfirmedProblemGastritis (3906762)Gastritis (K29.70)ActiveconfirmedProblemWell adult (210093369)Well adult (Z00.00)Active confirmedProblemHemorrhoids (19978662)Hemorrhoids (K64.9)ActiveconfirmedProblem Overweight (461654634)Overweight (BMI 25.0-29.9) (E66.3)ActiveconfirmedProblem Aortic valve sclerosis (12315575)Aortic valve sclerosis (I35.8)Activeconfirmed ProblemPulmonary vascular congestion (R09.89)ActiveconfirmedProblemSevere left ventricular systolic dysfunction (276905054035)Severe left ventricular systolic dysfunction (I51.9)ActiveconfirmedProblemAt risk for falls (190315280)At risk for falls (Z91.81)ActiveconfirmedProblemCardiomegaly (3748008)Atrial enlargement, left (I51.7)ActiveconfirmedProblemMacular edema and retinopathy due to type 2 diabetes mellitus (99915193756245)Type 2 diabetes mellitus with proliferative diabetic retinopathy with macular edema, 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) ActiveconfirmedProblemAcute non-ST segment elevation myocardial infarction (883209636)Acute non-ST elevation myocardial infarction (NSTEMI) (I21.4)Active confirmedProblemPulmonary hypertension (28615208)Pulmonary hypertension (I27.20) ActiveconfirmedProblemAbnormal results of cardiovascular function studies (504076378)Cardiac LV ejection fraction 21-40% (R94.30)ActiveconfirmedProblem 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)ActiveconfirmedProblemChronic kidney disease stage 3 (disorder) (838143934)Chronic kidney disease, stage III (moderate) (N18.30)ActiveconfirmedProblemChronic low back pain (finding) (654982866)Chronic midline low back pain without sciatica (M54.50)Active confirmed Vital Signs Blood pressure diastolic 80 mm Hg 10/03/2025 Zuzdma33 in10/03/2025lood pressure yzenekef632 mm Hg10/03/20256134Dyxsaz046 lbs 10/03/2025BMI24.39 kg/m210/03/2025 Encounters Encounter Location Date Provider Diagnosis [address] [address] 08/11/2025 Hermelindo Hoy Hypertension I10 ; Ischemic cardiomyopathy I25.5 ; Type 2 diabetes mellitus with proliferative diabetic retinopathy with macular edema, bilateral E11.3513 and Encounter for Medicare annual wellness exam Z00.[address] [address] 10/03/2025 Hermelindo Hoy Type 2 diabetes anamaria itus with proliferative diabetic retinopathy with macular edema, bilateral E11.3513 ; Pulmonary hypertension I27.20 ; TIA (transient ischemic attack) G45.9 ; Gastritis K29.70 and CHF (congestive heart failure) I50.9 [address] [place] [address] 12/06/2024 [facility] [place] [address] 05/09/2025[facility] [place] [address]/Doug [facility] [facility] [place] [address]/10/2024[facility] [facility] [place] [address]/Doug [facility] [facility] [place] [address]/[facility] [facility] [place] [address]/30/2025 [facility] [facility] [place] [address] 08/11/2025Doug HoyHypertension I10 ; Ischemic cardiomyopathy I25.5 and CHF (congestive heart failure) I50.9[facility] [facility] [address]/Doug [facility] [address] [facility] [place] [address]/Doug [facility] [facility] [place] [address]/Doug [facility] [facility] [place] [address] 10/03/2025Doug HoyCHF (congestive heart failure) I50.9 and Weakness R53.1BN[facility] [place] [address]/ [facility] [facility] [address]/Doug Hoy Assessments Encounter Date Diagnosis (ICD Code) Assessment Notes Treatment Notes Treatment Clinical Notes Section Notes 08/11/2025 Ischemic cardiomyopathy (ICD-10 - I25.5) patient was seen for a subsequent medicare wellness appointment, completed was a anxiety, depression and safety screening all without concern. patient alson completed a memory test and the patient scored a 28/30. patient was due for all yearly labs which were ordered and printed for the patient to get them done in ray. Patient declined annual flu shop08/11/2025Hypertension (ICD-10 - I10) patient was seen for a subsequent medicare wellness appointment, completed was a anxiety, depression and safety screening all without concern. patient alson completed a memory test and the patient scored a 28/30. patient was due for all yearly labs which were ordered and printed for the patient to get them done in ray. Patient declined annual flu shop10/03/2025Type 2 diabetes mellitus with proliferative diabetic retinopathy with macular edema, bilateral (ICD-10 - E11.3513)10/03/2025Pulmonary hypertension (ICD-10 - I27.20)08/11/2025Ischemic cardiomyopathy (ICD-10 - I25.5)08/11/2025Hypertension (ICD-10 - I10)10/03/2025 Weakness (ICD-10 - R53.1)10/03/2025HF (congestive heart failure) (ICD-10 - I50.9)08/11/2025HF (congestive heart failure) (ICD-10 - I50.9)08/11/2025Type 2 diabetes mellitus with proliferative diabetic retinopathy with macular edema, bilateral (ICD-10 - E11.3513)patient was seen for a subsequent medicare wellness appointment, completed was a anxiety, depression and safety screening all without concern. patient alson completed a memory test and the patient scored a 28/30. patient was due for all yearly labs which were ordered and printed for the patient to get them done in ray. Patient declined annual flu shop 10/03/2025TIA (transient ischemic attack) (ICD-10 - G45.9)10/03/2025Gastritis (ICD-10 - K29.70)08/11/2025Encounter for Medicare annual wellness exam (ICD-10 - Z00.00)patient was seen for a subsequent medicare wellness appointment, completed was a anxiety, depression and safety screening all without concern. patient alson completed a memory test and the patient scored a 28/30. patient was due for all yearly labs which were ordered and printed for the patient to g et them done in ray. Patient declined annual flu shop5CHF (congestive heart failure) (ICD-10 - I50.9)seeing cardiologu this week Plan Of Treatment Pending Test Test Name Order Date CMP (COMPLETE METABOLIC PANEL) 3 CMP (COMPLETE METABOLIC PANEL) 4 HEMOGLOBIN A1C (GLYCO) 02/19/2023 HEMOGLOBIN A1C (GLYCO) 10/03/2025 IRON, TOTAL 10/03/2025 IRON, TOTAL 02/19/2023 LIPID PANEL (CHOL/TRIG/HDL/LDL) 02/20/20 LIPID PANEL (CHOL/TRIG/HDL/LDL) 10/03/20 25 CBC WITH DIFF (EXP 08/2025) 11/27/2023 CBC WITH DIFF (EXP 08/2025) 02/19/2023 VITAMIN D, 25 LEVEL (TOTAL) 02/19/2023 VITAMIN D, 25 LEVEL (TOTAL) 10/03/2025 Urinalysis Microscopic 10/03/2025 VD25 ([facility]) 10/04/2025 Insulin Level 10/03/2025 COMPREHENSIVE METABOLIC PROFILE WITH GFR 12/26/2023 COMPREHENSIVE METABOLIC PROFILE WITH GFR 08/11/2025 OCCULT BLOOD, FECAL, IMMUNOASSAY 025 IRON 10/04/2025 INSULIN 10/04/2025 CBC W/AUTO DIFF 08/11/2025 High Sensitivity Troponin 10/03/2025 STOOL OCCULT BLOOD 10/03/2025 STOOL OCCULT BLOOD 02/19/2023 LIPID PANEL 10/04/2025 BNP 10/03/2025 CULTURE URINE 10/03/2025 GLYCOHEMOGLOBIN A1C 08/11/2025 THYROID PANEL (T4/TSH/FREE T3) 5 THYROID PANEL (T4/TSH/FREE T3) 4 THYROID PANEL (T4/TSH/FREE T3) 3 THYROID PANEL (T4/TSH/FREE T3) 5 Vitamin D 08/11/2025 Lipid Panel 08/11/2025 CMP (COMP MET COVARRUBIAS) w/eGFR CKD-EPI 2024 CBC WITH DIFF 10/03/2025 Insurance Providers Payer Name Payer Address Payer Phone Subscriber Number Group Number Insured Name Patient Relationship to Insured Coverage Start Date Coverage End Date [place]IC[place] [address] [place] [address] [id number] Gemma Lordelf - patient is the [id number] MEDICARE [address]PP[address] [place] [id number], Nancy Self - patient is the [id number] 2019 Medical (General) History Medical History History ICD Code Overweight (BMI 25.0-29.9) E66.3 At risk for falls Z91.81 Gout M10.9 Acute bronchitis J20.9 Ischemic cardiomyopathy I25.5 Cardiac LV ejection fraction 21-40% R94. 30 CAD (coronary artery disease) I25.10 Severe left ventricular systolic dysfunc tion I51.9 Mitral valve regurgitation I34.0 Aortic valve sclerosis I35.8 Atrial enlargement, left I51.7 Acute non-ST elevation myocardial infarc tion (NSTEMI) I21.4 Pulmonary hypertension I27.20 TIA (transient ischemic attack) G45.9 Chronic midline low back pain without sc iatica M54.50 Cystocele, midline N81.11 Well adult Z00.00 Conductive hearing loss, bilateral H90.0 Pseudophakia Z96.1 Unspecified premature depolarization I49 .40 Chronic kidney disease, stage III (moder ate) N18.30 Hypertension I10 Type 2 diabetes mellitus wit h proliferative diabetic retinopathy with macular edema, bilateral E11.3513 Osteoarthritis M19.90 Status post amputation of toe Z89.429 CHF (congestive heart failure) I50.9 Hemorrhoids K64.9 Surgical History Surgery Date(Month/Year) EGD- biopsy 11/24/23 colonoscopy 12/2013 heart cath 08/2020 Hospitalization History Reason Date(Month/Year) cardiomyopathy 08/2020 hy[pg;ycemia 03/2016 dehydration 11/2023
--- OUTSIDE RECORDS SUMMARY | 2025-10-04 17:45 | XMS_ITS | Clinical Summary ---
Author Organization [facility] Address [address] [place] [address] Care Team Providers Care Pediatric Psychiatrist Name Role Phone Unavailable Primary Care Provider Unavailabl e Active Problems ProblemNoted DateDiagnosed DateDisorder of adrenal gland10/04/2025 Overview (10/04/2025): Removed when pt was in her 40s Ubgdjjldw45/16/2025Diabetes mellitus due to underlying condition with diabetic chronic kidney scecdrv9106/07/2023cute on chronic systolic congestive heart qyrnrpa1110/07/2021Family history of atrial pfcqzucxhuyz45/19/2021HFrEF (heart failure with reduced ejection fraction)09/07/2021History of coronary artery stent qnttunqzj58/19/2021VC (premature ventricular contraction)09/07/2021OB (shortness of breath)09/07/2021oronary artery disease of [place] artery of [place] heart with stable angina viaryfeu25/07/2020Essential hypertension 02/11/2017 Encounters DateTypeDepartmentCare HcpnMcyjeubrtmz31/10/2025Telephone [facility] at [address] [address] Leonor Lanier MA from Last 3 Months Social History Tobacco UseTypesPacks/DayYears UsedDateSmoking Tobacco: NeverSmokeless Tobacco: Never Tobacco Cessation:Counseling Given: Not Answered CommentsUnknownSex and Gender InformationValueDate RecordedSex Assigned at JwwccKznjiw78/26/2025 10:33 AM ESTLegal BdgYfhoye88/24/2025 9:33 AM EDTGender XrmsiddcFaoaus87/26/2025 10:33 AM ESTSexual OrientationHeterosexual or Straight 09/14/2025 10:33 AM EST Plan of Treatment DateTypeDepartmentCare Team (Latest Contact Info)Nupqrypymqj88/17/2025 1:20 PM ESTOffice Visit [facility] [address] [place] [address] Sarmad Denny MD [address] [place] [address] Health MaintenanceDue DateLast DoneCommentsDiabetes: Hemoglobin A1C1937 Medicare Annual Wellness (AWV)1937Diabetes: Retinopathy Screening 1947Depression Gdkftjfvs74/22/1949Zoster Vaccines (1 of 2)1987 10/19/2013Fall Risk Hcpzeiqlj47/22/2002Pneumococcal Vaccine: 50+ Years (2 of 2 - PPSV23, PCV20, or PCV21)Adult Povqeha27/ COVID-19 Vaccine ( - season)2025Influenza Vaccine (#1)2025 08/14/2022, 09/06/2021, 08/29/2021, Additional history existsHIB VaccinesAged OutNo longer eligible based on patient's age to complete this topicHPV Vaccines Aged OutNo longer eligible based on patient's age to complete this topicIPV VaccinesAged OutNo longer eligible based on patient's age to complete this topic Meningococcal B VaccineAged OutNo longer eligible based on patient's age to complete this topicMeningococcal VaccineAged OutNo longer eligible based on patient's age to complete this topicRotavirus VaccinesAged OutNo longer eligible based on patient's age to complete [place] [address]
--- OUTSIDE RECORDS SUMMARY | 2025-10-04 17:45 | XMS_ITS | Clinical Summary ---
Author Organization [facility] Address [address] [place] [address] Care Team Providers Care Doffer Name Role Phone Yared Martinez MD Primary Care Provider [phone] Lorena Leslie MD Unavailable Allergies Active AllergyReactionsCriticalityNoted DateCommentsAdhesiveOther: See Comments 07/14/2017HydrocodoneOther: See Vtgsrzwy56/25/2017OxycodoneOther: See Comments 07/14/2017Oxycodone-HzqocztmzjzjpPoklqee03/07/4545DxrrewsfZlrqyel32/07/2020 Medications MedicationSigDispense QuantityRefillsLast FilledStart DateEnd DateStatus carvedilol (COREG) 25 mg tablet Take 25 mg by mouth twice daily with meals.Active insulin glargine (LANTUS) 100 unit/mL soln Inject 30 Units subcutaneously every morning. Active Multivitamin capsule Take 1 capsule by mouth once daily.Active insulin aspart U-100 (NOVOLOG) 100 unit/mL Inject 2 Units subcutaneously three times daily before meals. 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 180 tablet ctive hydrALAZINE (APRESOLINE) 50 mg tablet Indications:Coronary artery disease involving red devil coronary artery of red devil heart without angina pectoris,Essential hypertension,HFrEF (heart failure with reduced ejection fraction) (HCC),PVC (premature ventricular contraction),History of coronary artery stent placement,SOB (shortness of breath),Family history of atrial fibrillationTake 1 tablet by mouth two times a day. 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 180 tablet 6Active clopidogrel (PLAVIX) 75 mg tablet Take 1 tablet by mouth once daily. 90 tablet 5Active spironolactone (ALDACTONE) 25 mg tablet Take 1 tablet by mouth once daily. 90 tablet 506Active Active Problems ProblemNoted DateDiagnosed DateDiabetes mellitus due to underlying condition with diabetic chronic kidney zolxpgz2706/07/2023cute on chronic systolic congestive heart rugrohr5410/07/2021History of coronary artery stent placement 09/07/2021ssential btccclkrisqu11/19/2021OB (shortness of breath)09/07/2021 HFrEF (heart failure with reduced ejection fraction)09/07/2021VC (premature ventricular contraction)09/07/2021Family history of atrial fibrillation 09/07/2021oronary artery disease of red devil artery of red devil heart with stable angina /07/2020 Encounters DateTypeDepartmentCare JxckCuawmznmuym86/19/2025[facility] [address] [place], [place] [id number] Lorena Leslie MD Refill Requestfrom Last 3 Months Immunizations ImmunizationAdministration DatesNext Dueinfluenza (HD-IIV4) vaccine, age 65+ yr, high dose, quadrivalent, PF (FLUZONE HIGH-DOSE)08/26/2020 Social History Tobacco UseTypesPacks/DayYears UsedDateSmoking Tobacco: NeverSmokeless Tobacco: Never Tobacco Cessation:Counseling Given: Not Answered Alcohol UseStandard Drinks/WeekCommentsNot Currently0 (1 standard drink = 0.6 oz pure alcohol)Overall Financial Resource Strain (CARDIA)AnswerDate RecordedHow hard is it for you to pay for the very basics like food, housing, medical care, and heating?Not hard at all08/28/2020Hunger Vital SignAnswerDate RecordedWithin the past 12 months, you worried that your food would run out before you got the money to buymore.Never true08/28/2020Within the past 12 months, the food you bought just didn't last and you didn't have money to get more.Never true 08/28/2020PRAPARE - TransportationAnswerDate RecordedIn the past 12 months, has lack of transportation kept you from medical appointments or from getting medications?No08/28/2020In the past 12 months, has lack of transportation kept you from meetings, work, or from getting things needed for daily living?No 08/28/2020Area Deprivation IndexAnswerDate RecordedNational Score (1-100), lower number is lower fawm044206/03/2023State Score (1-10), lower number is lower risk4 3Data from: https://www.neighborhoodatlas.medicine.[facility].edu/. Last address used for sjm[address]af[address]CommentsNo Sex and Gender InformationValueDate RecordedSex Assigned at BirthFemale 08/29/2022 6:34 PM ESTLegal YerHnsohi81/05/2017 12:06 PM ESTGender Identity Pditex4508/29/2022 6:34 PM ESTSexual EahuipqlcvtUyelxplj95/10/2022 6:34 PM EST Last Filed Vital Signs Vital SignReadingTime TakenCommentsBlood Latjllzl687/7004 2:05 PM EDT Mgpvl3308 2:05 PM KJGCvbdcmucvtr10.7 ??C (98 ??F)08/31/2020 1:22 PM EST Respiratory Akij655901/27/2025 2:05 PM EDTOxygen Dowyemhyve05%01/27/2025 2:05 PM EDTInhaled Oxygen Concentration--Qcwyoy22.2 kg (168 lb)01/27/2025 2:05 PM EDT Ffigsu913.2 cm (5' 7 )01/27/2025 2:05 PM EDTBody Mass Index26.31001/27/2025 2:05 PM EDT Plan of Treatment Health MaintenanceDue DateLast DoneCommentsDiabetic Foot Exam1947Dilated Retinal Exam1947Urine Albumin:Creatinine Ratio1947nxiety Screening 1955Depression Rjqyglusp47/22/1955one Density Kfqlibdhv28/22/2002Medicare Annual Wellness Visit12/19/2003RSV Vaccine (1 - 1-dose 75+ series)2012 Shingrix Vaccine (2 of 3)Pneumococcal Vaccine: 50+ (2 of 2 - PPSV23, PCV20, or PCV21)DTaP,Tdap,Td Vaccine (2 - Td or Tdap)/4053RfY2K24/14//, 01/01/2024, 02/25/2023, Additional history existsAdvance Directive Yfkrxyhgnz15/01/2025LDL Cholesterol 507/, 01/01/2024, 02/25/2023, Additional history existsCovid-19 Vaccine ( - 2024- season)2025Influenza Vaccine (#1)2025 08/14/2022, 08/29/2021, 08/26/2020 Goals GoalPatient Goal TypeAssociated ProblemsRecent ProgressPatient-Stated?Author Blood Pressure < 130/80 Blood Fxfppfsd299/70(01/27/2025 2:05 PM EDT)Zaida Griffiths Procedures Procedure NamePriorityDate/TimeAssociated DiagnosisCommentsLIPID PANEL, FASTING Qvgnlhc5105/13/2024 3:21 PM EDT 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) History of coronary artery stent placement HFrEF (heart failure with reduced ejection fraction) ([facility]) Essential hypertension PVC (premature ventricular contraction) Diabetes mellitus due to underlying condition with diabetic chronic kidney disease, unspecified CKDstage, unspecified whether parts counterman insulin use (HCC) Stage 2 chronic kidney disease HEMOGLOBIN Z6FLodjdzk98/07/2020 12:37 PM EST from Last 3 Months or Most Recently Relevant to Health Maintenance Results * LIPID PANEL BASIC (05/13/2024 3:21 PM EDT)ComponentValueRef RangeTest Method Analysis TimePerformed AtPathologist SignatureCholesterol, Mxrsk275<200 mg/dL 05/13/2024 9:52 PM [facility]Comment: <200 mg/dL, Desirable 200-239 mg/dL, Borderline high >239 mg/dL, High Onlnzzsesfkk93<150 mg/dL05/13/2024 9:52 PM [facility] Comment: <150 mg/dL, Normal 150-199 mg/dL, Borderline high 200-499 mg/dL, High >499 mg/dL, Very high HDL Vshdulysclm91>39 mg/dL05/13/2024 9:52 PM [facility] Comment: 40-59 mg/dL, Acceptable >59 mg/dL, High: Negative risk factor for coronary heart disease <40 mg/dL, Low: Positive risk factor for coronary heart disease Non HDL Mbjmtdgiuym140<130 mg/dL05/13/2024 9:52 PM [facility]Comment: <130 mg/dL, Optimal 130-159 mg/dL, Near optimal/above optimal 160-189 mg/dL, Borderline high 190-219 mg/dL, High >219 mg/dL, Very high Secondary prevention optimal non HDL Cholesterol levels are recommended to be <100 mg/dL Fasting Hdvm5llv40/25/2024 9:52 PM [facility] LABVLDL Cyapunrpmze52<30 mg/dL05/13/2024 9:52 PM [facility] TC:HDL Ratio3.02<5.1007 9:52 PM [facility] LABLDL Cholesterol, Gpqpgjplzc41<100 mg/dL05/13/2024 9:52 PM [facility]Comment: <100 mg/dL, Optimal 100-129 mg/dL, Near optimal/above optimal 130-159 mg/dL, Borderline high 160-189 mg/dL, High >189 mg/dL, Very high Secondary prevention optimal LDL Cholesterol levels are recommended to be < 70 mg/dL LDL:HDL Ratio1.82<2.54005/13/2024 9:52 PM [facility] Comment: Reference: 1. National Cholesterol Education Program ATP III Guideline At-A-Glance Quick Desk Reference: National Heart, Lung, and Blood Pride. National Institutes of Health. 2001: NIH Publication No. 01-3305. 2. An International Atherosclerosis Society position paper: global recommendations for the management of dyslipidemia: executive summary, Atherosclerosis. 2014: 232(2):410-413. Specimen (Source)Anatomical Location / LateralityCollection Method / Volume Collection TimeReceived TimeBloodBLOOD SPECIMEN / UnknownVenipuncture / Unknown 05/13/2024 3:21 PM EDT05/13/2024 3:21 PM EDT Narrative Authorizing ProviderResult TypeResult StatusDaniel [facility] PA-CLABORATORYFinal ResultPerforming OrganizationAddressCity/State/ZIP CodePhone Number [facility] [address] * (ABNORMAL) HGB A1C (08/26/2020 12:37 PM EST)ComponentValueRef RangeTest Method Analysis TimePerformed AtPathologist SignatureHemoglobin A1C6.1(H)4.3 - 5.6 % 08/27/2020 7:44 AM ESTHenry County Hospital LaboratoriesComment: [place] Diabetes Association guidelines indicate that patients with HgbA1c in the range 5.7-6.4% are at increased risk for development of diabetes, and intervention by lifestyle modification may be beneficial. HgbA1c greater or equal to 6.5% is considered diagnostic of diabetes. Estimated Average Vgjhgpl653ue/dL08/27/2020 7:44 AM ESTHenry County Hospital LaboratoriesComment: eAG: (Estimated average glucose) is a calculated value from HgbA1c and is outreach representative of the average blood glucose level in the last 2-3 month period. Specimen (Source)Anatomical Location / LateralityCollection Method / Volume Collection TimeReceived TimeBloodWHOLE BLOOD SPECIMEN / Vxbqvew8908/26/2020 12:37 PM EST08/26/2020 12:38 PM EST Narrative Authorizing ProviderResult TypeResult StatusLuke Simba GORDONLABORATORYFinal Result Performing OrganizationAddressCity/State/ZIP CodePhone Number [facility] [address] [place] [address] [facility] [address] [place] [address] from Last 3 Months or Most Recently Relevant to Health Maintenance Insurance Advance Directives * Full Code (Latest Code Status on File) Date ActivatedDate MizeowwilblRbkulrwy04/7/2020 12:24 PM08/31/2020 5:40 PM QuestionAnswerCommentsFull Code Order Discussed With:* Patient Care Teams Team MemberRelationshipSpecialtyStart DateEnd Yared Martinez MD [facility] - [facility]02/22/16 Lorena Leslie MD Primary Staff PhysicianCardiology10/22/21
--- OUTSIDE RECORDS SUMMARY | 2025-10-04 17:45 | XMS_ITS | Clinical Summary ---
Author Organization [facility] Address [address], [address] [place] [address] Care Team Providers Care Cloud Systems Administrator Name Role Phone Yared Martinez MD Primary Care Provider [phone] Allergies Active AllergyReactionsCriticalityNoted DateCommentsAdhesive Tape07/14/2017 Vtfojsxf23/12/8071Dvhydymuwql54/25/2017Hydrocodone-Uqgfsrzwefsrw95/21/2017 Other reaction(s): GI Intolerance pt denies allergy to medication pt reports intolerance to pain meds-- makes me throw up Dsnlzwvjs79/25/2017Oxycodone-Fmnbamzseuprc02/21/2017 Other reaction(s): Vicodin Encounters DateTypeDepartmentCare UinkYwxlqetoemq61/16/2025 8:35 AM ESTHospital Encounter [facility] [address] [place] [address] Uwxaels9108/18/2025 9:36 AM EDT - 08/18/2025 11:59 PM EDTHospital Encounter [facility] [address] [place] [address] Discharge Disposition: Home or Self Carefrom Last 3 Months Family History Medical HistoryRelationNameCommentsCancerFatherCancerMotherRelationNameStatus CommentsFatherMother Social History Tobacco UseTypesPacks/DayYears UsedDateSmoking Tobacco: NeverSmokeless Tobacco: NeverAlcohol UseStandard Drinks/WeekCommentsNever0 (1 standard drink = 0.6 oz pure alcohol)AUDIT-CAnswerDate RecordedQ1: How often do you have a drink containing alcohol?Never02/28/2021verage Number of DrinksNot on file02/28/2021 Frequency of Binge DrinkingNot on file1CommentsUnknownSex and Gender InformationValueDate RecordedSex Assigned at BirthNot on fileLegal Sex Lbwtwl4911/29/2012 2:43 PM ESTGender IdentityNot on fileSexual OrientationNot on file Plan of Treatment Health MaintenanceDue DateLast DoneCommentsDepression Xispvc7608/10/1947 Respiratory Syncytial Virus (RSV) or age 60 yrs+ (1 - 1-dose 75+ series)2012Shingles vaccine (2 of 3)Pneumococcal 50+ years Vaccine (2 of 2 - PCV20 or PCV21)Annual Wellness Visit (Medicare)3DTaP/Tdap/Td vaccine (2 - Td or Tdap)Flu vaccine (#1), 08/29/2021, 08/26/2020COVID-19 Vaccine ( - season)2025Hepatitis A vaccineAged OutNo longer eligible based on patient's age to complete this topicHepatitis B vaccineAged OutNo longer eligible based on patient's age to complete this topicHib vaccineAged OutNo longer eligible based on patient's age to complete this topicMeningococcal (ACWY) vaccineAged OutNo longer eligible based on patient's age to complete this topicMeningococcal B vaccineAged OutNo longer eligible based on patient's age to complete this topicPolio vaccineAged OutNo longer eligible based on patient's age to complete this topic Procedures Procedure NamePriorityDate/TimeAssociated DiagnosisCommentsVITAMIN D 25 HYDROXY Zssjdfu2810/04/2025 9:20 AM EST URINALYSIS, BCXUJOrskspb35/16/2025 9:20 AM EST WFMXzjikwm19/16/2025 9:20 AM EST HOQGPVNBFijlcdm43/16/2025 9:20 AM EST LIPID LXIKGLjdoeec30/16/2025 9:20 AM EST INSULIN, ELKPAUlhokrb90/16/2025 9:20 AM EST HEMOGLOBIN E0FKrhptgf33/16/2025 9:20 AM EST UYOJEzowzle67/16/2025 9:20 AM EST CBC WITH AUTO AQVXOPTEFESKTeqmpin36/16/2025 9:20 AM EST BRAIN NATRIURETIC DBQLDCTJziuict70/16/2025 9:20 AM EST VITAMIN D 25 EKVSGAMBzgbzpx16/30/2025 9:44 AM EDT KFLVvshqjf24/30/2025 9:44 AM EDT C6Bqmpbub06/30/2025 9:44 AM EDT LIPID YMLOXZmbtikm61/30/2025 9:44 AM EDT HEMOGLOBIN S6CTpfjoqz18/30/2025 9:44 AM EDT T3, WDUUKskqlww14/30/2025 9:44 AM EDT COMPREHENSIVE METABOLIC IHGFYKkuxzga35/30/2025 9:44 AM EDT CBC WITH AUTO NXSNCPKRGGPJLocchpn73/30/2025 9:44 AM EDT from Last 3 Months Results * (ABNORMAL) Urinalysis, Micro (10/04/2025 9:20 AM EST)ComponentValueRef Range Test MethodAnalysis TimePerformed AtPathologist SignatureWBC, UA50 TO 1000 /HPF10/04/2025 9:20 AM [facility] LABRBC, UA2 TO 50 - 2 /HPF 10/04/2025 9:20 AM [facility] LABBacteria, UA1+(A)None10/04/2025 9:20 AM Travora NetworksARD LAB-10/04/2025 9:20 AM ZoomTiltSOUTHEAST [facility] CENTERTLabsARD LABSpecimen (Source)Anatomical Location / LateralityCollection Method / Volume Collection TimeReceived Time10/04/2025 9:20 AM EST10/04/2025 9:21 AM EST Narrative Authorizing ProviderResult TypeResult StatusDolisseth ALEXANDER ORDERABLES Final ResultPerforming OrganizationAddressCity/State/ZIP CodePhone Number [facility] [address] [place] [address], [facility] [phone] * (ABNORMAL) CBC with Auto Differential (10/04/2025 9:20 AM EST) Only the most recent of2 resultswithin the time period is included. ComponentValueRef RangeTest MethodAnalysis TimePerformed AtPathologist Signature WBC10.43.5 - 11.0 k/uL10/04/2025 9:20 AM [facility]ora NetworksARD LABRBC3.85(L) 4.00 - 5.20 m/uL10/04/2025 9:20 AM [facility] CGBLsatdbfgeb83.112.0 - 16.0 g/dL10/04/2025 9:20 AM [facility]ARD LUIBgijpbvmka89.836.0 - 46.0 %10/04/2025 9:20 AM [facility] JLKION10.280.0 - 100.0 fL 10/04/2025 9:20 AM [facility] UXNCRB96.426.0 - 34.0 pg10/04/2025 9:20 AM [facility]ARD HLIEIBJ37.031.0 - 37.0 g/dL10/04/2025 9:20 AM [facility]TiltSOUT[facility] CENTERSeymour Innovative GGWNKX08.312.1 - 15.2 %10/04/2025 9:20 AM [employer] RLMDwvsridvx816168 - 450 k/uL10/04/2025 9:20 AM Travora NetworksARD GLNLMS01.36.0 - 12.0 fL10/04/2025 9:20 AM [facility] NetworksARD LAB Neutrophils %77(H)47 - 75 %10/04/2025 9:20 AM ESTSOUTHEAST ARIZONA [facility] CENTERGREE O[facility] LAB Lymphocytes %13(L)15 - 40 %10/04/2025 9:20 AM ESTSOUTHE[facility]ENTERGREE O[facility] LAB Monocytes %64 - 8 %10/04/2025 9:20 AM ESTSOUTHE[facility] ARI[facility] CENTERGREE OMA LABEosinophils %30 - 5 %10/04/2025 9:20 AM ESTSOUTHE[facility] CENTERGREE OMA LABBasophils %10 - 2 %10/04/2025 9:20 AM ESTSOUTHE[facility] CENTERGREE OMA LABImmature Granulocytes %00 - 5 %10/04/2025 9:20 AM ESTSOUTHE[facility] CENTERGREE OMA LABNeutrophils Absolute7.90(H)2.5 - 7.0 k/uL 10/04/2025 9:20 AM ESTSOUTHEAST ARIZONA [facility] CENTERGREE OMA LABLymphocytes Absolute1.401.00 - 4.80 k/uL10/04/2025 9:20 AM ESTSOUTHEAST ARIZONA [facility] CENTERGREE MOA LABMonocytes Absolute0.67 0.00 - 1.00 k/uL10/04/2025 9:20 AM ESTSOUTHEAST ARIZONA [facility] CENTERGREE OMA LABEosinophils Absolute0.350.00 - 0.40 k/uL10/04/2025 9:20 AM [facility]iltS[facility]ENTERG[facility] O[facility] LAB Basophils Absolute0.060.00 - 0.20 k/uL10/04/2025 9:20 AM ESTSOUTHEAST ARIZONA [facility] CENTERGREE OMA LABImmature Granulocytes Absolute0.030.00 - 0.30 k/uL10/04/2025 9:20 AM ZoomTiltSOUT[facility] CENTERGREE OMA LABSpecimen (Source)Anatomical Location / LateralityCollection Method / VolumeCollection TimeReceived Time10/04/2025 9:20 AM EST10/04/2025 9:21 AM EST Narrative Authorizing ProviderResult TypeResult StatusDolisseth Martinez MDHEMATOLOGY ORDERABLESFinal ResultPerforming OrganizationAddressCity/State/ZIP CodePhone Number [facility] [employer] [facility] [address] [place] [address], [facility] [phone] * (ABNORMAL) Troponin (10/04/2025 9:20 AM EST)ComponentValueRef RangeTest Method Analysis TimePerformed AtPathologist SignatureTroponin, High Ytgisgacttr81(H)0 - 14 ng/L112/05/2024 9:20 AM ZoomTilt LABComment:High Sensitivity Troponin values cannot be compared with other Troponin methodologies.Specimen (Source)Anatomical Location / LateralityCollection Method / VolumeCollection TimeReceived Time10/04/2025 9:20 AM EST10/04/2025 9:21 AM EST Narrative Authorizing ProviderResult TypeResult Statusgailwild Braden Michelle MDCHEMISTRY ORDERABLES Final ResultPerforming OrganizationAddressCity/State/ZIP CodePhone Number [facility] [address] [place] [address], [facility] [phone] * Vitamin D 25 Hydroxy (10/04/2025 9:20 AM EST) Only the most recent of2 resultswithin the time period is included. ComponentValueRef RangeTest MethodAnalysis TimePerformed AtPathologist Signature Vit D, 25-Mdjkrkl39.230.0 - 100.0 ng/mL10/04/2025 9:20 AM Quture Comment: Reference Range: Vitamin D status ? Range Deficiency <20 ng/mL Mild Deficiency ? 20-30 ng/mL Sufficiency ?30-100 ng/mL Toxicity >100 ng/mL Specimen (Source)Anatomical Location / LateralityCollection Method / Volume Collection TimeReceived Time10/04/2025 9:20 AM EST10/04/2025 9:21 AM EST Narrative Authorizing ProviderResult TypeResult StatusYared Martinez MDCHEMISTRY ORDERABLES Final ResultPerforming OrganizationAddressCity/State/ZIP CodePhone Number [employer] [address] [place] [address], [facility] [phone] [employer] [facility] [place] [address], [facility] [phone] * Insulin, total (10/04/2025 9:20 AM EST)ComponentValueRef RangeTest Method Analysis TimePerformed AtPathologist SignatureInsulin NdsgrheFZW33/16/2025 9:20 AM ZoomTilt LABInsulin5.7mU/L112/05/2024 9:20 AM QutureInsulin Reference Range:10/04/2025 9:20 AM [employer] [facility] Comment: Fastin.6-24.9 30 min: ??20-112 60 min: ??29-88 90 min: ??26-84 120 min: 22-79 Specimen (Source)Anatomical Location / LateralityCollection Method / Volume Collection TimeReceived Time10/04/2025 9:20 AM EST10/04/2025 9:21 AM EST Narrative Authorizing ProviderResult TypeResult StatusYared Martinez MDCHEMISTRY ORDERABLES Final ResultPerforming OrganizationAddressty/State/ZIP CodePhone Number [facility] [employer] LAB [address] [place] [address], [facility] [phone] [facility] [employer] [facility] [place] [address], [facility] [phone] * TSH (10/04/2025 9:20 AM EST) Only the most recent of2 resultswithin the time period is included. ComponentValueRef RangeTest MethodAnalysis TimePerformed AtPathologist Signature TSH0.450.27 - 4.20 uIU/mL10/04/2025 9:20 AM ZoomTiltSOUTHEAST ARIZONA MEDICAL CENTERTLabsARD LABSpecimen (Source)Anatomical Location / LateralityCollection Method / VolumeCollection TimeReceived Time10/04/2025 9:20 AM EST10/04/2025 9:21 AM EST Narrative Authorizing ProviderResult TypeResult StatusYared Martinez MDCHEMISTRY ORDERABLES Final ResultPerforming OrganizationAddressty/State/ZIP CodePhone Number [facility] [address] [place] [id number], [facility] [phone] * (ABNORMAL) Brain Natriuretic Peptide (10/04/2025 9:20 AM EST)ComponentValueRef RangeTest MethodAnalysis TimePerformed AtPathologist SignatureNT Pro-BNP2,052 (H)<300 pg/mL10/04/2025 9:20 AM ZoomTilt LABComment: An age-independent cutoff point of 300 pg/ml has a 98% negative predictive value excluding acute heart failure. Specimen (Source)Anatomical Location / LateralityCollection Method / Volume Collection TimeReceived Time10/04/2025 9:20 AM EST10/04/2025 9:21 AM EST Narrative Authorizing ProviderResult TypeResult StatusYared Martinez MDCHEMISTRY ORDERABLES Final ResultPerforming OrganizationAddressCity/State/ZIP CodePhone Number [facility] [address] [place] [id number], [facility] [phone] * Iron (10/04/2025 9:20 AM EST)ComponentValueRef RangeTest MethodAnalysis Time Performed AtPathologist WgpqozbfkSzik4124 - 145 ug/dL10/04/2025 9:20 AM EST Hers LABORATORIESSpecimen (Source)Anatomical Location / LateralityCollection Method / VolumeCollection TimeReceived Time10/04/2025 9:20 AM EST10/04/2025 9:21 AM EST Narrative Authorizing ProviderResult TypeResult StatusYared Martinez MDCHEMISTRY ORDERABLES Final ResultPerforming OrganizationAddressCity/State/ZIP CodePhone Number [facility] [address] [place] [address], [facility] [phone] [employer] [address] [place], [place] [address] [place] [address] * (ABNORMAL) Hemoglobin A1C (10/04/2025 9:20 AM EST) Only the most recent of2 resultswithin the time period is included. ComponentValueRef RangeTest MethodAnalysis TimePerformed AtPathologist Signature Hemoglobin A1C6.3(H)4.0 - 6.0 %10/04/2025 9:20 AM ESTMERCY LABORATORIESEstimated Avg Gpbbtpd884zj/dL10/04/2025 9:20 AM ESTMERCY LABORATORIESComment: The ADA and AACC recommend providing the estimated average glucose result to permit better patient understanding of their HBA1c result. Specimen (Source)Anatomical Location / LateralityCollection Method / Volume Collection TimeReceived Time10/04/2025 9:20 AM EST10/04/2025 9:21 AM EST Narrative Authorizing ProviderResult TypeResult StatusYared Martinez MDCHEMISTRY ORDERABLES Final ResultPerforming OrganizationAddressCity/State/ZIP CodePhone Number [facility] [address] [place] [address], [facility] [phone] [employer] [address] [place] [address], [facility] [phone] * (ABNORMAL) Lipid Panel (10/04/2025 9:20 AM EST) Only the most recent of2 resultswithin the time period is included. ComponentValueRef RangeTest MethodAnalysis TimePerformed AtPathologist Signature Cholesterol, Hcbis5445 - 199 mg/dL10/04/2025 9:20 AM ESTMERFoxyTunes LABORATORIES Comment: Cholesterol Guidelines: <200 Desirable 200-240 ??Borderline >240 Undesirable HDL33(L)>40 mg/dL10/04/2025 9:20 AM ESTMERFoxyTunes LABORATORIESComment: HDL Guidelines: <40 Undesirable 40-59 ?Borderline >59 Desirable LDL Mtpjfcgzpty242(H)0 - 100 mg/dL10/04/2025 9:20 AM ESTMERFoxyTunes LABORATORIES Comment: LDL Guidelines: <100 Desirable 100-129 ?? Near to/above Desirable 130-159 ?? Borderline >159 Undesirable Direct (measured) LDL and calculated LDL are not interchangeable tests. Chol/HDL Ratio4.6<5.012 9:20 AM ESTMERCY NITLMMRFKOLJYeohexhbmfkwv63<150 mg/dL10/04/2025 9:20 AM ESTMERFoxyTunes LABORATORIESComment: Triglyceride Guidelines: <150 Desirable 150-199 ??Borderline 200-499 ??High >499 Very high Based on AHA Guidelines for fasting triglyceride, July 2012. QBOP650 - 30 mg/dL10/04/2025 9:20 AM ESTMERFoxyTunes LABORATORIESSpecimen (Source) Anatomical Location / LateralityCollection Method / VolumeCollection Time Received Time10/04/2025 9:20 AM EST10/04/2025 9:21 AM EST Narrative Authorizing ProviderResult TypeResult StatusDougwild Martinez MDCHEMISTRY ORDERABLES Final ResultPerforming OrganizationAddressCity/State/ZIP CodePhone Number [facility] [address] [place] [address], [facility] [phone] [place] [address] [place] [address], [facility] [phone] * T3, Free (08/18/2025 9:44 AM EDT)ComponentValueRef RangeTest MethodAnalysis TimePerformed AtPathologist SignatureT3, Free2.832.00 - 4.40 pg/mL08/18/2025 9:44 AM EDTMERCY LABORATORIESSpecimen (Source)Anatomical Location / Laterality Collection Method / VolumeCollection TimeReceived Time08/18/2025 9:44 AM EDT 08/18/2025 9:45 AM EDT Narrative Authorizing ProviderResult TypeResult StatusYared Martinez MDCHEMISTRY ORDERABLES Final ResultPerforming OrganizationAddressty/State/ZIP CodePhone Number [facility] [address] [place] [address], [facility] [phone] [employer] [address] [place] [address], [facility] [phone] * (ABNORMAL) T4 (08/18/2025 9:44 AM EDT)ComponentValueRef RangeTest Method Analysis TimePerformed AtPathologist SignatureThyroxine (T4)4.3(L)4.5 - 11.7 ug/dL08/18/2025 9:44 AM EDTMERCY LABORATORIESSpecimen (Source)Anatomical Location / LateralityCollection Method / VolumeCollection TimeReceived Time 08/18/2025 9:44 AM EDT1 9:45 AM EDT Narrative Authorizing ProviderResult TypeResult StatusYared Sampson Michelle MDCHEMISTRY ORDERABLES Final ResultPerforming OrganizationAddressty/State/ZIP CodePhone Number [facility] [address] [place] [address], [facility] [phone] [employer] [address] [place] [address], [facility] [phone] * (ABNORMAL) Comprehensive Metabolic Panel (08/18/2025 9:44 AM EDT)Component ValueRef RangeTest MethodAnalysis TimePerformed AtPathologist SignatureSodium 936877 - 144 mmol/L1 9:44 AM EDInSpaARD LABPotassium5.2 3.7 - 5.3 mmol/L1 9:44 AM EDideaForge VHYWvtwgrhg837(H)98 - 107 mmol/L1 9:44 AM EDideaForge FHYVF806(L)20 - 31 mmol/L1 9:44 AM [facility] OMA LABAnion Koe222 - 17 mmol/L 08/18/2025 9:44 AM EDWeathermob OMA EWDJikipvm716(H)70 - 99 mg/dL 08/18/2025 9:44 AM EDWeathermob OMA XZGIBZ73(H)8 - 23 mg/dL08/18/2025 9:44 AM [facility] O[facility] LABCreatinine1.4(H)0.5 - 0.9 mg/dL08/18/2025 9:44 AM Central Test OMA LABEst, Glom Filt Rate36(L)>60 mL/min/1.73m2 08/18/2025 9:44 AM Central Test OMA LABComment: ? These results are not intended for use in patients <18 years of age. ? eGFR results are calculated without a race factor using the 2020 CKD-EPI equation. Careful clinical correlation is recommended, particularly when comparing to results calculated using previous equations. The CKD-EPI equation is less accurate in patients with extremes of muscle mass, extra-renal metabolism of creatine, excessive creatine ingestion, or following therapy that affects renal tubular secretion. Chbilhp73.9(H)8.6 - 10.4 mg/dL08/18/2025 9:44 AM [facility] Total Protein7.06.4 - 8.3 g/dL08/18/2025 9:44 AM [facility] Albumin3.63.5 - 5.2 g/dL08/18/2025 9:44 AM [facility] Albumin/Globulin Ratio1.11.0 - 2.510 9:44 AM [facility] Total Bilirubin0.50.3 - 1.2 mg/dL08/18/2025 9:44 AM [facility] Alkaline Rgvbrmgbzmf1298 - 104 U/L1 9:44 AM [facility] EJT184 - 33 U/L1 9:44 AM [facility] WKMMZR40<32 U/L 08/18/2025 9:44 AM [facility] OMA LABSpecimen (Source)Anatomical Location / LateralityCollection Method / VolumeCollection TimeReceived Time 08/18/2025 9:44 AM EDT1 9:45 AM EDT Narrative Authorizing ProviderResult TypeResult StatusDolisseth Martinez MDCHEMISTRY ORDERABLES Final ResultPerforming OrganizationAddressCity/State/ZIP CodePhone Number [facility] [address] [place] [address], [facility] [phone] from Last 3 Months Insurance Care Teams Team MemberRelationshipSpecialtyStart Date Yared Martinez MD [address] [place] [address] PCP - GeneralFamily Medicine02/25/23
--- OUTSIDE RECORDS SUMMARY | 2025-10-04 17:45 | XMS_ITS | Continuity of Care Document ---
Author Organization [facility] Address [address] [place] [address] Phone [phone] Care Team Providers Care Process Cheese Cooker Name Role Phone Yared Martinez MD Care Team Information Junior Accounting Clerk [phone] Assessments Date Code Description Provider 11/25/2023 N17.9 Acute kidney failure, unspec ified Debbi Quintanilla NP-C 11/25/2023 N18.30 Chronic kidney disease, stag e 3 unspecified NIURKA Youssef 11/25/2023 E87.5 Hyperkalemia Debbi torres NP-Giovani 11/25/2023 E87.20 Acidosis, unspecified NIURKA Middleton 11/24/2023 N17.9 Acute kidney failure, unspec ified Lucitajoelle Braden.DLuca 11/24/2023 N18.30 Chronic kidney disease, stag e 3 unspecified Lucitajoelle Braden.DLuca 11/24/2023 E87.5 Hyperkalemia Lucita Braden.DLuca 11/24/2023 E87.20 Acidosis, unspecified Lucita Wilfredo Braden.DLuca 11/21/2023 N17.9 Acute kidney failure, unspec ified Renzo Marte M.D. 11/21/2023 N18.30 Chronic kidney disease, stag e 3 unspecified Renzo Marte M.D. 11/21/2023 E87.5 Hyperkalemia Swapna Adan 11/21/2023 E87.20 Acidosis, unspecified Thalia Marte M.D.
--- OUTSIDE RECORDS SUMMARY | 2025-10-04 17:45 | XMS_ITS | Clinical Summary ---
Author Organization [facility] Address [facility] [place] [address] Care Team Providers Care Communications Manager Name Role Phone Sarmad Buckner DO Primary Care Pro vider Allergies Active AllergyReactionsCriticalityNoted DateCommentsAdhesive Tape-Silicones 02/07/2017Oxycodone-Rfsfhmuxybhvw67/21/2017Hydrocodone-AcetaminophenGI Zmqivorfcac37/21/2017 Medications MedicationSigDispense QuantityRefillsLast FilledStart DateEnd DateStatus hydrALAZINE (APRESOLINE) 50 MG tablet Take 50 mg by mouth 3 (three) times a day.12/04/2016Active insulin aspart (NovoLOG) 100 unit/mL injection Indications:Sliding ScaleInject under the skin 3 (three) times a day before meals Reasons: Sliding Scale.Active carvedilol (COREG) 25 MG tablet Take 25 mg by mouth 2 (two) times a day with meals.Active insulin detemir U-100 (LEVEMIR) 100 unit/mL injection Inject 20 Units under the skin 2 (two) times a day 20 U AM, 15 U at lunch . Active Active Problems ProblemNoted DateDiagnosed DateEssential xvlwrbdhuxzx89/25/2017Diabetes 02/07/2017 Social History Tobacco UseTypesPacks/DayYears UsedDateSmoking Tobacco: NeverSmokeless Tobacco: Never Tobacco Cessation:Counseling Given: No Alcohol UseStandard Drinks/WeekCommentsNo0 (1 standard drink = 0.6 oz pure alcohol)CommentsNoSex and Gender InformationValueDate RecordedSex Assigned at BirthNot on fileLegal CxuBjnouh37/21/2017 9:05 AM EDTGender Identity Not on fileSexual OrientationNot on file Last Filed Vital Signs Vital SignReadingTime TakenCommentsBlood Agojtsyu981/84640 9:37 AM EDT Chxcv1025 9:33 AM PSQMkrrzxhxiwi62.6 ??C (97.9 ??F)02/07/2018 9:33 AM EDTRespiratory Rate--Oxygen Saturation--Inhaled Oxygen Concentration--Hbagoj43 kg (205 lb)02/07/2018 9:33 AM WRBVdzehh678.3 cm (5' 9 )02/07/2018 9:33 AM EDT Body Mass Index30.2704 9:33 AM EDT Plan of Treatment Health MaintenanceDue DateLast DoneCommentsDexa Scan1937Wellness Visit 1940Depression Screening/Follow-Up (PHQ-2/)1949 Tetanus/Diphtheria/Pertussis (1 - Tdap)1956Pneumococcal Vaccine: 50+ Years (1 of 1 - PCV)1987Zoster Vaccines (1 of 2)1987Falls Risk Assessment 2002RSV Vaccines (1 - 1-dose 75+ series)2012COVID-19 Vaccine ( - 2024- season)2025Influenza Vaccine (#1)2025HIB VaccinesAged OutNo longer eligible based on patient's age to complete this topicHPV VaccinesAged OutNo longer eligible based on patient's age to complete this topicHepatitis A VaccinesAged OutNo longer eligible based on patient's age to complete this topic Hepatitis B VaccinesAged OutNo longer eligible based on patient's age to complete this topicIPV VaccinesAged OutNo longer eligible based on patient's age to complete this topicMeningococcal ACWY VaccineAged OutNo longer eligible based on patient's age to complete this topicMeningococcal B VaccineAged OutNo longer eligible based on patient's age to complete this topicRotavirus VaccinesAged Out No longer eligible based on patient's age to complete this topic Goals GoalPatient Goal TypeAssociated ProblemsRecent ProgressPatient-Stated?Author Blood Pressure < 130/80 Blood Achygbkn991/100(02/07/2018 9:37 AM EDT)Brenda Orellana Note: High blood pressure makes your heart work too hard. It can cause heart attack, stroke and kidney disease. HEMOGLOBIN A1C < 8.0 Result ComponentNoPBrenda uriarte Note: Blood sugar levels outside the normal range may be an indicator of diabetes. Insurance PART A CLAIMS [facility] [id number] [place] [address] Care Teams Team MemberRelationshipSpecialtyStart DateEnd Sarmad Buckner DO [address] [place] [address] PCP - GeneralFamily Medicine02/07/17
[2025-10-04 18:38] LABS: Anion Gap 16.4; Blood Urea Nitrogen 59.0 mg/dL (7.0-18.0); Calcium 9.1 mg/dL (8.5-10.1); Carbon Dioxide 14.5 mmol/L (21.0-32.0); Chloride 110 mmol/L (98-107); Estimated GFR (African America 34 (>=60 mL/min/1.73m^2); Estimated GFR (Non-African Ame 28 (>=60 mL/min/1.73m^2); Glucose 203 mg/dL (74-106); Potassium 4.9 mmol/L (3.5-5.1); Sodium 136 mmol/L (136-145)
[2025-10-04 22:32] LABS: Glucose Urine UA NEGATIVE (NEGATIVE)
[2025-10-04 22:41] LABS: Cast Seen? NONE SEEN #/LPF (NONE SEEN); Crystals Seen? None Seen #/HPF (None Seen); Urine Culture Indicated YES-FRMC
[2025-10-04 23:07] LABS: NT Pro B Type Natriuretic Pept 2056.0 pg/mL (<=1800.0)
[2025-10-05] VITALS (17 sets, daily range): BP systolic 91–128; BP diastolic 45–73; PULSE 77–113; TEMP 36.3–36.6; O2SAT 90–97; BMI 24.2
[2025-10-05] MEDS: ASPIRIN 81 MG TABLET.DR PO ×2 (00:21→08:57)
[2025-10-05] MEDS: LABETALOL HCL 100 MG/20 ML MDV IVP (00:22)
[2025-10-05 05:36] LABS: Hematocrit 33.5 % (36.0-48.0); Hemoglobin 10.9 g/dL (12.0-16.0); Immature Granulocytes Abs Auto 0.04 10^3/uL (0.00-0.03); Immature Granulocytes Pct Auto 0.4 % (0.0-0.5); Lymphocytes Absolute Auto 1.8 10^3/uL (1.2-3.8); Mean Corpuscular HGB Conc 32.5 g/dL (29.9-35.2); Mean Corpuscular Hemoglobin 31.6 pg (26.7-34.0); Mean Corpuscular Volume 97.1 fL (81.0-99.0); Platelet Count 402 10^3/uL (150-450); Red Blood Count 3.45 10^6/uL (4.20-5.40); White Blood Count 9.6 10^3/uL (4.0-11.0)
[2025-10-05] MEDS: PANTOPRAZOLE SODIUM 40 MG TABLET.DR PO ×2 (06:17→21:18)
[2025-10-05 06:21] LABS: Iron 38.0 ug/dL (50.0-170.0); Percent Iron Saturation 17.2 %; Total Iron Binding Capacity 221.0 ug/dL (250.0-450.0)
[2025-10-05 06:37] LABS: Ferritin 150.0 ng/mL (8.0-252.0)
[2025-10-05 06:41] LABS: Anion Gap 16.2; Blood Urea Nitrogen 61.0 mg/dL (7.0-18.0); Carbon Dioxide 18.2 mmol/L (21.0-32.0); Chloride 112 mmol/L (98-107); Estimated GFR (African America 36 (>=60 mL/min/1.73m^2); Estimated GFR (Non-African Ame 30 (>=60 mL/min/1.73m^2); Glucose 144 mg/dL (74-106); Potassium 4.4 mmol/L (3.5-5.1); Sodium 142 mmol/L (136-145)
[2025-10-05 06:42] LABS: Alanine Aminotransferase 14 U/L (14-59); Albumin Globulin Ratio 0.7; Albumin Level 2.6 g/dL (3.4-5.0); Alkaline Phosphatase 48 U/L (46-116); Aspartate Amino Transferase 11 U/L (15-37); Calcium 8.7 mg/dL (8.5-10.1); Cholesterol 145 mg/dL (<=200); Globulin 4.0 g/dL; HDL Cholesterol 34 mg/dL (40-60); Total Protein 6.6 g/dL (6.4-8.2); Triglycerides 62 mg/dL (<=150); VLDL CHOLESTEROL 12.4 mg/dL
--- NOTE | 2025-10-05 08:00 | US_ITS ---
The [address] [address] Patient Name: ANAND AMAYA MRN: [id number] date: 1935 Sex: F Assigned Patient Location: MS Current Patient Location: Accession/Order Number: [id number] Exam Date: 10/05/2025 08:01 Report Date: 10/05/2025 09:23 At the request of: FATOU VELAZQUEZ MD Procedure: US renal BI BILATERAL RENAL AND BLADDER ULTRASOUND CLINICAL HISTORY: Renal failure r/o obstructive uropathy COMPARISON: None Estimation of renal size is approximately 10.6 cm on the right and 10.7 cm on the left. No shadowing calculi are identified. There is mild fullness of the renal collecting systems bilaterally, right slightly worse than left. There are a couple renal cysts within each kidney. These measure 15 and 16 mm on the right and 16 and 7 mm on the left. There is no perinephric fluid. The urinary bladder is partially distended with a volume of 267 mL. No contour or intraluminal abnormalities are seen. US/US renal BI IMPRESSION: SMALL BILATERAL RENAL CYSTS. MILD BILATERAL HYDRONEPHROSIS. Impression dictated by: Marnie Nelson M.D. 10/05/2025 9:23 AM Dictation Location: [place] [address] Electronically authenticated by: [id number] Y Date: 10/05/2025 09:23
--- NOTE | 2025-10-05 08:00 | ECG_ITS ---
The [facility] Test Date: 2025-10-05 Pat Name: ANAND AMAYA Department: Room: 2191 Gender: Female Scrap Stripper Hand: : 1935 Requested By: Order Number: [id number] Reading MD: GARFIELD GREEN M.D. Measurements Intervals [place] Rate: 90 P: 72 CO: 151 QRS: -22 QRSD: 108 T: 25 QT: 389 QTc: 477 Interpretive Statements SINUS RHYTHM WITH OCCASIONAL VENTRICULAR PREMATURE COMPLEXES BORDERLINE LEFT AXIS DEVIATION [QRS AXIS < -20] Borderline ECG Compared to ECG 10/04/2025 16:57:48 Sinus tachycardia no longer present Myocardial infarct finding no longer present Electronically Signed On 10-05-2025 20:54:19 EST by GARFIELD GREEN M.D.
[2025-10-05] MEDS: ENOXAPARIN SODIUM 30 MG/0.3 ML SYRINGE SUBQ (08:57)
--- NOTE | 2025-10-05 09:43 | PM.IMHP1 ---
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 On assessment at bedside on the regular nursing floor, patient resting comfortably in chair, denies any chest pain or shortness of breath while ambulating around ranch style house however has noted persistent cough over the past week or so, worsened while laying flat. Denies any fevers, chills, nausea, vomiting, leg swelling. Has been compliant with medications including Plavix and Entresto, does not recall being placed on Lasix however did have recent prescription on 10/03/2025. Does notes recent likely viral illness around [facility], since then has been attempting to maintain hydration with liquid IV hydration supplements as well as soup, has had poor overall appetite. In the emergency room, BMP shows sodium 142, potassium 4.4, chloride 112, BUN 61, creatinine 1.64, chest x-ray shows hilar fullness and bilateral opacities concerning for CHF exacerbation. EKG shows sinus rhythm with occasional PVCs. BNP on 10/04/2025 resulted 2055. 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 unspecified behavior of endocrine glands and other parts of nervous system (ICD-10) Cervical cancer ?C53.9 - Malignant neoplasm of cervix uteri, unspecified (ICD-10) Heart failure ?I50.9 - Heart failure, unspecified (ICD-10) Diabetes ?E11.9 - Type 2 diabetes mellitus without complications (ICD-10) Surgical History History of heart artery stent ?Z95.5 - Presence of coronary angioplasty implant and graft (ICD-10) History of heart artery stent ?Z95.5 - Presence of coronary angioplasty implant and graft (ICD-10) Family History (Updated 10/05/25 @ 01:18 by Letty Trinidad RN) Son Family history of diabetes mellitus Family history of hypertension Son Family history of diabetes mellitus Family history of hypertension Social History (Updated 10/05/25 @ 01:20 by Letty Trinidad RN) Within the past year, how often did you have a drink containing alcohol: never Within the past year, how often did you have six or more drinks on one occasion: never Score interpretation: A score less than 3 is consistent with normal alcohol consumption. Smoking status: Never smoker Non-prescribed substance use: denies use Highest level of school completed/degree received: Bachelor's degree Are you now , , , , never or living with a partner: In a typical week, how many times do you talk on the telephone with family, friends, or neighbors: 3 or more times per week How often do you get together with friends or relatives: 3 or more times per week How often do you attend hinduism or sikhism services: 4 or more times per year Do you belong to any clubs or organizations such as hinduism groups unions, [employer] or athletic groups, or school groups: yes Total score: 3 Score interpretation: A score of greater than or equal to 2 indicates the lowest level of social isolation. Little interest or pleasure in doing things: not at all Feeling down, depressed, or hopeless: not at all Feel stressed/tense/nervous/anxious/difficulty sleeping: not at all Meds Home Medications and Allergies Home Medications ?Medication ?Instructions ?Recorded ?Confirmed ?Type allopurinol 100 mg tablet 100 mg PO DAILY 10/04/25 10/04/25 History cefdinir 300 mg capsule 300 mg PO Q12H 10/04/25 10/05/25 History clopidogrel 75 mg tablet 75 mg PO DAILY 10/04/25 10/04/25 History furosemide 40 mg tablet 40 mg PO DAILY 10/04/25 10/04/25 History insulin aspart U-100 100 unit/mL 3 - 15 unit subcut TIDWM 10/04/25 10/05/25 History (3 mL) subcutaneous pen (Novolog FlexPen U-100 Insulin aspart) insulin glargine 100 unit/mL (3 20 unit subcut .qhs 10/04/25 10/05/25 History mL) subcutaneous pen (Basaglar KwikPen U-100 Insulin) liothyronine 5 mcg tablet 10 mcg PO .qd 10/04/25 10/05/25 History pantoprazole 40 mg tablet,delayed 40 mg PO Q12H 10/04/25 10/04/25 History release sacubitril 97 mg-valsartan 103 mg 1 tab PO BID 10/04/25 10/04/25 History tablet (Entresto) spironolactone 25 mg tablet 25 mg PO DAILY 10/04/25 10/04/25 History Allergies Allergy/AdvReac Type Severity Reaction Status Date / Time acetaminophen (From Percocet) Allergy Vomiting Verified 10/04/25 16:46 adhesive tape Allergy Rash Verified 10/04/25 16:46 hydrocodone (From Vicodin) Allergy Vomiting Verified 10/04/25 16:46 oxycodone Allergy Vomiting Verified 10/04/25 16:46 Exam Narrative Exam Narrative: General: cooperative and tired appearing Orientation: alert, awake and oriented x3 Head: normal to inspection Neck: normal visual inspection Cardio: no JVD, regular rate, regular rhythm Chest palpation & inspection: normal inspection of the chest Resp Effort & Inspection: normal respiratory effort Abd: soft, non-tender, non-distended Extremities: Warm well perfused, no edema Constitutional Vital Signs, click to edit/add: Last Vital Signs Temp 97.7 F 10/05/25 07:51 Pulse 98 H 10/05/25 08:00 Resp 19 10/05/25 07:51 BP 113/68 10/05/25 07:51 Pulse Ox 90 L 10/05/25 07:51 O2 Del Method Room Air 10/05/25 07:51 Internal Medicine - H&P: Reslt Labs Labs: Short CBC 10/05/25 Range/Units 05:04 WBC 9.6 (4.0-11.0) 10^3/uL Hgb 10.9 L (12.0-16.0) g/dL Hct 33.5 L (36.0-48.0) % Plt Count 402 (150-450) 10^3/uL BMP 10/04/25 10/05/25 17:43 05:04 Sodium 136 142 Potassium 4.9 4.4 Chloride 110 H 112 H Carbon Dioxide 14.5 L 18.2 L BUN 59.0 H 61.0 H Creatinine 1.71 H 1.64 H Glucose 203 H 144 H Calcium 9.1 8.7 Liver Function 10/05/25 Range/Units 05:04 Total Bilirubin 0.2 (0.2-1.0) mg/dL Direct Bilirubin 0.1 (0.0-0.2) mg/dL AST 11 L (15-37) U/L ALT 14 (14-59) U/L Alkaline Phosphatase 48 (46-116) U/L Albumin 2.6 L (3.4-5.0) g/dL Urine 10/04/25 Range/Units 22:02 Urine Color Lt. yellow (YELLOW) Urine Clarity Clear (CLEAR) Urine pH 6.0 (5.0-9.0) Ur Specific [place] 1.015 (1.005-1.025) Urine Protein Negative (NEG/TRACE) mg/dL Urine Glucose (UA) Negative (NEGATIVE) mg/dL Assessment and Plan Assessment and Plan (1) Acute systolic CHF (congestive heart failure): Plan Bernarda Lord is an 89 y/o F with heart failure with reduced ejection fraction secondary to ischemic heart disease, history of cardiac stents for NSTEMI, ejection fraction 36% as of January 2025, DM II, hypothyroidism, presented to emergency room after referred by PCP on 10/04/25 due to elevated BNP prompting request for medical admission. 1. Acute systolic CHF exacerbation w/o hypoxia - In the emergency room, BMP shows sodium 142, potassium 4.4, chloride 112, BUN 61, creatinine 1.64, chest x-ray shows hilar fullness and bilateral opacities concerning for CHF exacerbation. EKG shows sinus rhythm with occasional PVCs. BNP on 10/04/2025 resulted 2055, troponin 19.7. - Early CHF exacerbation likely induced by dietary changes. -No need for repeat echo given most recent study in January of this year - Minimal evidence of volume overload on exam, will initiate light diuresis with Lasix 40 mg IV x 1 and likely discharge with p.o. Lasix - Patient had outpatient cardiology appointment scheduled today, requesting to see cardiology while inpatient, will consult - Anticipate discharge in the next 24 to 48 hours 2. h/o DM II, hypothyroidism, CKD - continue home meds including glargine and lithyronine - baseline Cr appears around 1.6 Diet: Cardiac Daily Labs: CBC, BMP Lines/Drains: PIV DVT ppx: Lovenox Code status: Full Status: observation for mild CHF exacerbation
[2025-10-05] MEDS: CLOPIDOGREL BISULFATE 75 MG TABLET PO (10:01)
[2025-10-05] MEDS: FUROSEMIDE 40 MG/4 ML VIAL IVP (10:01)
[2025-10-05] MEDS: LIOTHYRONINE SODIUM 5 MCG TABLET 10 MCG PO (10:01)
--- NOTE | 2025-10-05 10:10 | CM.NOTE ---
Rounds made with Dr. Britt, discussed with pt reason for admission and plan of care. Pt will get dose of IV lasix this am. CM obtained recent echo, Dr. Britt will cancel echo ordered this admission. PT and OT ordered and will evaluate for discharge planning.
--- NOTE | 2025-10-05 10:54 | SWNOTE1 ---
SW attempted to see pt, but OT was in room working with pt. SW to stop back in.
[2025-10-05] MEDS: INSULIN ASPART 300 UNIT/3 ML PEN SUBQ (12:02)
--- NOTE | 2025-10-05 12:36 | SWNOTE1 ---
SW met with pt to discuss dc needs. Pt live at home and her son and daughter in law just moved in with her about a month ago. Pt does not have any home health at this time. Pt does have meals on wheels coming in. She voiced she may stop that now since her son and daughter in law moved in. Pt does have a rollator she uses at home, but stated it is very old and worn down. She did ask SW about a new one. Pt voiced she has not received any medical equipment in the last 5 years from Medicare. GRIS advised that SW will speak to the physician to see if he could assist with this. Pt in agreement. SW did let her know that OT did recommend home health services. SW did go over home health services with pt and what they can provide. Pt is in agreement with home health services. GRIS provided pt with list from medicare.gov with star ratings. Pt voiced her son should be returning soon and she will go over with him. SW to stop back in later today.
--- NOTE | 2025-10-05 13:39 | PM.CACN ---
History of Present Illness History of Present Illness Consult date: 10/05/25 Requesting physician: Caridad Piedra Chief complaint: CHF UTI Narrative: Mrs Lord is an 89 year old with known CAD s/p stent x 2 in 2020 for AK. Most recent EF 36%. Had nt-BNP yesterday at 2055 (ULN 1800) and admitted for CHF. She denies chest pain, shortness of breath or swelling. Feels usual self. In discussion with her, and confirmed with son, she is inactive and only does minimal walking in house and no housework. She did admit to SOB walking up ramp into latter-day 2 months ago and has not been back since. Lives at home with son. Denies EtoH, smoking or drug use. Enjoys TV reading and playing piano. 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 unspecified behavior of endocrine glands and other parts of nervous system (ICD-10) Cervical cancer ?C53.9 - Malignant neoplasm of cervix uteri, unspecified (ICD-10) Heart failure ?I50.9 - Heart failure, unspecified (ICD-10) Diabetes ?E11.9 - Type 2 diabetes mellitus without complications (ICD-10) Surgical History History of heart artery stent ?Z95.5 - Presence of coronary angioplasty implant and graft (ICD-10) History of heart artery stent ?Z95.5 - Presence of coronary angioplasty implant and graft (ICD-10) Family History (Updated 10/05/25 @ 01:18 by Letty Trinidad RN) Son Family history of diabetes mellitus Family history of hypertension Son Family history of diabetes mellitus Family history of hypertension Social History (Updated 10/05/25 @ 01:20 by Letty Trinidad RN) Within the past year, how often did you have a drink containing alcohol: never Within the past year, how often did you have six or more drinks on one occasion: never Score interpretation: A score less than 3 is consistent with normal alcohol consumption. Smoking status: Never smoker Non-prescribed substance use: denies use Highest level of school completed/degree received: Bachelor's degree Are you now , , , , never or living with a partner: In a typical week, how many times do you talk on the telephone with family, friends, or neighbors: 3 or more times per week How often do you get together with friends or relatives: 3 or more times per week How often do you attend latter-day or confucianist services: 4 or more times per year Do you belong to any clubs or organizations such as latter-day groups unions, [employer] or [employer] groups, or school groups: yes Total score: 3 Score interpretation: A score of greater than or equal to 2 indicates the lowest level of social isolation. Little interest or pleasure in doing things: not at all Feeling down, depressed, or hopeless: not at all Feel stressed/tense/nervous/anxious/difficulty sleeping: not at all Meds Home Medications and Allergies Home Medications ?Medication ?Instructions ?Recorded ?Confirmed ?Type allopurinol 100 mg tablet 100 mg PO DAILY 10/04/25 10/04/25 History cefdinir 300 mg capsule 300 mg PO Q12H 10/04/25 10/05/25 History clopidogrel 75 mg tablet 75 mg PO DAILY 10/04/25 10/04/25 History furosemide 40 mg tablet 40 mg PO DAILY 10/04/25 10/04/25 History insulin aspart U-100 100 unit/mL 3 - 15 unit subcut TIDWM 10/04/25 10/05/25 History (3 mL) subcutaneous pen (Novolog FlexPen U-100 Insulin aspart) insulin glargine 100 unit/mL (3 20 unit subcut .qhs 10/04/25 10/05/25 History mL) subcutaneous pen (Basaglar KwikPen U-100 Insulin) liothyronine 5 mcg tablet 10 mcg PO .qd 10/04/25 10/05/25 History pantoprazole 40 mg tablet,delayed 40 mg PO Q12H 10/04/25 10/04/25 History release sacubitril 97 mg-valsartan 103 mg 1 tab PO BID 10/04/25 10/04/25 History tablet (Entresto) spironolactone 25 mg tablet 25 mg PO DAILY 10/04/25 10/04/25 History Allergies Allergy/AdvReac Type Severity Reaction Status Date / Time acetaminophen (From Percocet) Allergy Vomiting Verified 10/04/25 16:46 adhesive tape Allergy Rash Verified 10/04/25 16:46 hydrocodone (From Vicodin) Allergy Vomiting Verified 10/04/25 16:46 oxycodone Allergy Vomiting Verified 10/04/25 16:46 Exam Constitutional Vital Signs, click to edit/add: Last Vital Signs Temp 97.5 F L 10/05/25 11:39 Pulse 98 H 10/05/25 12:00 Resp 19 10/05/25 11:39 BP 123/73 10/05/25 11:39 Pulse Ox 92 L 10/05/25 11:39 O2 Del Method Room Air 10/05/25 11:39 Documenting provider has reviewed patient's vital signs: yes Common normals: no apparent distress, average body habitus and well nourished Neck & C-Spine Common normals: full ROM and no lymphadenopathy Carotids: normal carotid upstroke Other: JVP elevated at 8 cm Respiratory Common normals: normal respiratory effort, no retractions and no use of accessory muscles Effort & inspection: able to speak in complete sentences Auscultation: clear to auscultation bilaterally Cardio Common normals: regular rhythm, S1 normal heart sound and S2 normal heart sound Heart sounds: murmur (very soft 1/6 mid systolic murmur and soft S3) Peripheral pulses: pulses 2+ throughout Extremity Common normals: normal to inspection Other: mild pitting edema to ankles bilaterally Neuro Common normals: oriented x3 Psych Common normals: mental status grossly normal Results Labs and Meds Lab results: Cardiac Enzymes 10/05/25 Range/Units 05:04 AST 11 L (15-37) U/L Lipids 10/05/25 Range/Units 05:04 Triglycerides 62 (<=150) mg/dL Cholesterol 145 (<=200) mg/dL HDL Cholesterol 34 L (40-60) mg/dL Cholesterol/HDL Ratio 4.3 CBC 10/05/25 Range/Units 05:04 WBC 9.6 (4.0-11.0) 10^3/uL RBC 3.45 L (4.20-5.40) 10^6/uL Hgb 10.9 L (12.0-16.0) g/dL Hct 33.5 L (36.0-48.0) % Plt Count 402 (150-450) 10^3/uL Neut # (Auto) 6.5 (1.4-6.5) 10^3/uL Lymph # (Auto) 1.8 (1.2-3.8) 10^3/uL Webster # (Auto) 0.8 (0.3-0.8) 10^3/uL Eos # (Auto) 0.4 (0.0-0.7) 10^3/uL Baso # (Auto) 0.1 (0.0-0.1) 10^3/uL Comprehensive Metabolic Panel 10/04/25 10/05/25 Range/Units 17:43 05:04 Sodium 136 142 (136-145) mmol/L Potassium 4.9 4.4 (3.5-5.1) mmol/L Chloride 110 H 112 H (98-107) mmol/L Carbon Dioxide 14.5 L 18.2 L (21.0-32.0) mmol/L BUN 59.0 H 61.0 H (7.0-18.0) mg/dL Creatinine 1.71 H 1.64 H (0.55-1.02) mg/dL Glucose 203 H 144 H (74-106) mg/dL Calcium 9.1 8.7 (8.5-10.1) mg/dL Direct Bilirubin 0.1 (0.0-0.2) mg/dL AST 11 L (15-37) U/L ALT 14 (14-59) U/L Alkaline Phosphatase 48 (46-116) U/L Total Protein 6.6 (6.4-8.2) g/dL Albumin 2.6 L (3.4-5.0) g/dL Intake and Output 10/04/25 10/05/25 10/05/25 23:59 07:59 15:59 Intake Total 50 / 50 Output Total 125 / 125 300 / 300 Balance -75 / -75 -300 / -300 Intake: IV 50 / 50 Ceftriaxone 1,000 mg In 0.9 % 50 / 50 Sodium Chloride 50 ml @ 100 mls /hr IV Q24H [facility] Rx#:[id number] Output: Urine 125 / 125 300 / 300 Other: # Incontinent Voids 1 Weight 69.4 kg 70.2 kg EKG Interpretation EKG: sinus rhythm, normal axis and normal QRS (has frequent PVCs) Assessment and Plan Assessment and Plan (1) Acute systolic CHF (congestive heart failure): (2) Chronic systolic heart failure: (3) Hypoalbuminemia: (4) CKD (chronic kidney disease): Plan Mrs. Lord has asymptomatic chronic systolic heart failure with LVEF 36%. NT-BNP is elevated but just above normal. JVP mildly elevated and 1+ pitting edema bilaterally consistent with heart failure. It is likely that CKD is contributing to CHF. Recommend: add low dose coreg 3.125 mg po bid Consider increasing aldactone to 50 daily, and get BMP in 1 week to follow K Obtain urine albumin and urine creatinine. With low albumin in serum and diabetes she may be losing albumin in urine (nephrotic) which contributes to heart failure. I will be happy to see her as an outpatient next week.
--- NOTE | 2025-10-05 13:51 | SWNOTE1 ---
SW stopped back in pt's room and son was in room. SW explained to pt's son the recommendation of home health services. Pt's son is in agreement. He did review list from Medicare.gov, but does not have a preference. During conversation, pt did get a phone call and it was from [facility]. SW spoke to the person on phone from [facility] and she stated that Dr. Martinez sent a referral to [facility] to have started. They were calling to set up a time for assessment in the home and did not realize pt was at the hospital. Pt and son would like to use [facility] and alright with SW sending them updates and getting it set up for when she discharges here. SW to fax updates.
--- NOTE | 2025-10-05 13:56 | SWNOTE1 ---
Medicare Outpatient Observation Notice reviewed and discussed with patient. Pt. verbalized understanding and signed the form. Original given to patient and copy placed in patient?s chart. Pt's son in room as well and no questions in regards to YAÑEZ.
--- OUTSIDE RECORDS SUMMARY | 2025-10-05 19:34 | XMS_ITS | Continuity of Care Document ---
Author Organization [facility] Address [address] [place] [address] Phone Care Team Providers Care General Engineer Name Role Phone Bradley Leyva MD Attending Provider Care Teams Patient Care Team Team Status: Inactive Member Role/Relationship Status Dates Bradley Leyva MD Attending Provider Active St art: October 04, 2025 End: October 04, 2025 Social History Smoking Status Unknown if ever smoked Observation Status Observation Response Date of Response Legal Sex [facility] (finding) [facility] 1934 Procedures Procedure Date Performed Status Urine Culture October 04, 2025 active Encounters Encounter Location(s) Arrival/Admit Date Discharge/Departure Date Discharge/Departure Disposition Provider(s) Departed Referred -[facility] October 04, 2025 10:02pm October 04, 2025 10:03pm Discharged to home care or self care (routine discharge) Bradley Leyva MD Plan of Treatment Future Tests Future scheduled test information is unavailable Pending Tests Test Name Ordered Date Scheduled Date Urine Culture October 04, 2025 10:02pm Future Visits Future appointment information is unavailable Future Procedures Procedure Name Ordered Date Scheduled Date Urine Culture October 05, 2025 12:38pm Dece mber 2024 10:02pm Future Medications Future medication information is unavailable Patient Instructions Patient instructions are unavailable
[2025-10-06] VITALS (8 sets, daily range): BP systolic 95–120; BP diastolic 50–67; PULSE 78–105; TEMP 36.4–36.8; O2SAT 94–96
[2025-10-06 04:07] LABS: Vitamin B12 >2000 pg/mL (232-1245)
[2025-10-06] MEDS: INSULIN GLARGINE 300 UNIT/3 ML INSULN.PEN 20 UNIT SQ (08:38)
[2025-10-06] MEDS: CLOPIDOGREL BISULFATE 75 MG TABLET PO (08:40)
[2025-10-06] MEDS: ENOXAPARIN SODIUM 30 MG/0.3 ML SYRINGE SUBQ (08:40)
[2025-10-06] MEDS: PANTOPRAZOLE SODIUM 40 MG TABLET.DR PO (08:40)
[2025-10-06] MEDS: LIOTHYRONINE SODIUM 5 MCG TABLET 10 MCG PO (08:40)
[2025-10-06] MEDS: ASPIRIN 81 MG TABLET.DR PO (08:40)
[2025-10-06] MEDS: INSULIN ASPART 300 UNIT/3 ML PEN SUBQ (08:40)
--- NOTE | 2025-10-06 10:15 | CM.NOTE ---
Rounds made with Dr. Britt, pt will discharge to home. Pt will need to f/u with PCP and Cardiology. Pt will discharge with [facility] services.
[2025-10-06] MEDS: CARVEDILOL 3.125 MG TABLET PO (10:40)
--- NOTE | 2025-10-06 12:13 | P.DS_ITS ---
DS: Providers Provider Date of admission: 10/04/25 23:57 Primary care physician: Yared Martinez MD Consults: 10/05/25 Consult to Cardiology Routine Reason for consultation: CHF Occupational Therapy Eval and Treat Routine Reason for consultation: weakness Physical Therapy Eval and Treat Routine Reason for consultation: weakness 10/05/25 09:39 Occupational Therapy Eval and Treat Routine Reason for consultation: evaluation Physical Therapy Eval and Treat Routine Reason for consultation: eval DS: Diagnosis Discharge Diagnosis (1) Acute systolic CHF (congestive heart failure): (2) Chronic systolic heart failure: (3) Hypoalbuminemia: (4) CKD (chronic kidney disease): DS: Summary Time Spent with Patient Time attestation: Total time spent providing and/or coordinating discharge services: Exam Constitutional Vital Signs, click to edit/add: Last Vital Signs Temp 97.5 F L 10/06/25 08:00 Pulse 105 H 10/06/25 09:51 Resp 18 10/06/25 08:00 BP 120/67 10/06/25 08:00 Pulse Ox 96 10/06/25 08:00 O2 Del Method Room Air 10/06/25 08:00 DS: Data Data Completed and Pending Labs on day of discharge: Labs from last 24 hours 10/05/25 05:04 Vitamin B12 >2000 H Preliminary micro results at discharge 10/04/25 22:02 Urine Culture - Preliminary Urine,Clean Catch Pending - Specimen sent to [facility] Discharge Plan Discharge Disposition: Home Health Service Discharge Medications: New carvedilol 3.125 mg tablet 3.125 mg PO BID Qty: 90 0RF Rx Instructions: must administer with a meal/food spironolactone 50 mg tablet 50 mg PO DAILY Qty: 90 0RF Rx Instructions: Please start on 10/08/25 Continued clopidogrel 75 mg tablet 75 mg PO DAILY pantoprazole 40 mg tablet,delayed release (DR/EC) 40 mg PO Q12H liothyronine 5 mcg tablet 10 mcg PO .qd allopurinol 100 mg tablet 100 mg PO DAILY insulin aspart U-100 [Novolog FlexPen U-100 Insulin] 100 unit/mL (3 mL) insulin pen 3 - 15 unit SUBCUT TIDWM Patient Comments: INJECT 3 (THREE) UNITS SUBCUTANEOUSLY (UNDER THE SKIN) THREE TIMES DAILY per sliding scale max daily dosage OF 40 UNITS. insulin glargine [Melanie EncisoPen U-100 Insulin] 100 unit/mL (3 mL) insulin pen 20 unit SUBCUT .qhs Held sacubitril-valsartan [Entresto] 97-103 mg tablet 1 tab PO BID Hold Instructions: Resume on 10/08/25. Discontinued furosemide 40 mg tablet 40 mg PO DAILY cefdinir 300 mg capsule 300 mg PO Q12H Patient Comments: 10/04/25-10/13/25 spironolactone 25 mg tablet 25 mg PO DAILY Print Language: Pashto Patient Instructions: Carvedilol (By mouth), Heart Failure (DC) Activity Restrictions/Additional Instructions: - Your spironolactone has been increased to 50 mg daily. Please start this and resume your entresto this weekend on 10/08/25 - Please get your blood work, BMP, urine creatinine, urine albumin before your appointment with Dr. Martinez next week. - Please schedule a follow up appointment with Dr. Denny, cardiology for next week as well [employer] Instructions: Discharge with [facility]. They should call within 48 hours of discharge to schedule a home visit. If you do not receive a call from [facility] within that time frame please call [phone]. Forms: Portal Instructions Follow Up Appointments: Fri. Kayley, 2024 at 10:45
--- NOTE | 2025-10-06 13:56 | CM.NOTE ---
Called son regarding antibiotic added for pt at discharge by Dr. Britt d/t preliminary urine culture report.
--- NOTE | 2025-10-07 13:02 | CM.DCFOLLOWU ---
Person spoke with:Bernarda How are you feeling? Good How is your pain? No pain Did you understand your discharge instructions? Yes Do you have any questions about your discharge instructions? No Were you given any prescriptions at discharge? Yes Were you able to get your prescriptions filled? Her son is at the pharmacy now Do you understand how to take your medications as ordered? Yes Do you have any questions about your follow up appointment and do you plan to keep your follow up appointment? No questions. She plans on keeping her follow up appt with Dr Martinez. Is there anything else that you would like to discuss? No Questions/Comments/Concerns/Other:
--- OUTSIDE RECORDS SUMMARY | 2025-10-07 14:37 | XMS_ITS | Patient Health Record ---
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 Name Role Phone Hermelindo Martinez Primary Care Provider Allergies Allergen (clinical drug ingredient) Drug/Non Drug Allergy documented on EMR Reaction Allergy Type Onset Date Status oxycodone oxyCODONE HCl vomiting Drug Allergy Activeacetaminophen / oxycodonePercocetvomitingDrug AllergyActiveVicodinvomiting Drug AllergyActive Results Component Value Reference Range Notes BNP Reviewed date:10/05/2025 05:55:34 PM Interpretation: Performing Lab: Notes/Report: [facility] , NT Pro B Type Natriuretic Pept 2056.0 <=1800.0 p g/mL RESULTS CALLED TO ANA LILIA SHEA RN @BY Jacqueline Gomes at 2306 Performing Lab: see note ML - [facility] LBT4 Reviewed date:08/18/2025 05:01:07 PM Interpretation: Performing Lab:[facility], [address] [place] [address] PH:[phone] Notes/Report:Thyroxine T44.34.5-11.7 ug/dLVD25 ([facility]) Reviewed date:08/18/2025 05:01:07 PM Interpretation: Performing Lab:[facility], [address] [place] [address] PH:[phone] Notes/Report:Vitamin D 25 OH30.330.0-100.0 ng/mL Reference Range: Vitamin D status Range Deficiency <20 ng/mL Mild Deficiency 20-30 ng/mL Sufficiency 30-100 ng/mL Toxicity >100 ng/mL CBC AND AUTO DIFF * Reviewed date:08/18/2025 12:10:30 PM Interpretation: Performing Lab:[facility], [address], [place] [address] PH:[phone] Notes/Report:WBC Count10.13.5-11.0 k/uLRBC Count3.864.00-5.20 m/jIGywlkvpgtu54.1 12.0-16.0 g/xTQkdauoeexe30.236.0-46.0 %MCV96.480.0-100.0 fLMCH31.326.0-34.0 pg MCHC32.531.0-37.0 g/dLRDW13.712.1-15.2 %Platelet Accvg419917-255 k/uLMPV10.66.0- 12.0 fLNeutrophil (Seg)7347-75 %Wgluzwfzmg3024-44 %Lcltvirl67-3 %Oovotvsdux71-2 %Sslzdypg32-6 %Immature Zvxknpdrlhx11-6 %Abs.Neutrophil (Seg)7.382.5-7.0 k/uL Abs. Lymph1.651.00-4.80 k/uLAbs. Monocyte0.660.00-1.00 k/uLAbs. Eosinophil0.28 0.00-0.40 k/uLAbs. Basophil0.060.00-0.20 k/uLAbs.Imm.Granulocyte0.040.00-0.30 k/uLFREE T3 Reviewed date:08/18/2025 05:01:07 PM Interpretation: Performing Lab:[facility], [address] [place] [address] PH:[phone] Notes/Report:T3, Free2.832.00-4.40 pg/mLLIPID PANEL Reviewed date:08/18/2025 05:01:07 PM Interpretation: Performing Lab:[facility], [address] [place] [address] PH:[phone] Notes/Report:Hbkpahhxevi5746-776 mg/dL Cholesterol Guidelines: <200 Desirable 200-240 Borderline >240 Undesirable Cholesterol,HDL46>40 mg/dL HDL Guidelines: <40 Undesirable 40-59 Borderline >59 Desirable Cholesterol,KSK329-867 mg/dL LDL Guidelines: <100 Desirable 100-129 Near to/above Desirable 130-159 Borderline >159 Undesirable Direct (measured) LDL and calculated LDL are not interchangeable tests. Chol/HDL Ratio3.3<5.3Cnhzzlwiwkmse73<150 mg/dL Triglyceride Guidelines: <150 Desirable 150-199 Borderline 200-499 High >499 Very high Based on AHA Guidelines for fasting triglyceride, July 2012. Cholesterol,FAHA931-19 mg/dLBRN NATRIURETIC PEP Reviewed date:10/04/2025 03:05:06 PM Interpretation: Performing Lab:[facility], [address] [place] [address] PH:[phone] Notes/Report:Pro-RQT7738 An age-independent cutoff point of 300 pg/ml has a 98% negative predictive<300 pg/mLvalue excluding acute heart failure.VD25 ([facility]) Reviewed date:10/04/2025 07:04:56 PM Interpretation: Performing Lab:[facility], [address] [place] [address] PH:[phone] Notes/Report:Vitamin D 25 OH33.230.0-100.0 ng/mL Reference Range: Vitamin D status Range Deficiency <20 ng/mL Mild Deficiency 20-30 ng/mL Sufficiency 30-100 ng/mL Toxicity >100 ng/mL CBC AND AUTO DIFF * Reviewed date:10/04/2025 03:05:06 PM Interpretation: Performing Lab:[facility], [address] [place] [address] PH:[phone] Notes/Report:WBC Count10.43.5-11.0 k/uLRBC Count3.854.00-5.20 m/tHPgjotrsdke50.1 12.0-16.0 g/uVVzeespqcag32.836.0-46.0 %MCV98.280.0-100.0 fLMCH31.426.0-34.0 pg MCHC32.031.0-37.0 g/dLRDW14.312.1-15.2 %Platelet Cyqal265074-096 k/uLMPV10.36.0- 12.0 fLNeutrophil (Seg)7747-75 %Zqbvmdeqvs2505-05 %Nyppjnhg33-5 %Rfbekgefiw56-1 %Jzaxdsaw08-7 %Immature Nyktfaswkhz40-0 %Abs.Neutrophil (Seg)7.902.5-7.0 k/uL Abs. Lymph1.401.00-4.80 k/uLAbs. Monocyte0.670.00-1.00 k/uLAbs. Eosinophil0.35 0.00-0.40 k/uLAbs. Basophil0.060.00-0.20 k/uLAbs.Imm.Granulocyte0.030.00-0.30 k/uLHGB A1C (GLYCO-HGB) Reviewed date:10/04/2025 03:05:06 PM Interpretation: Performing Lab[facility], [address] [place] [address] PH:[phone] Notes/Report:Hemoglobin A1C6.34.0-6.0 %Estimated Ave Vslw650 The ADA and AACC recommend providing the estimated average glucose result topermit better patient understanding of their HBA1c result.IRON Reviewed date:10/04/2025 07:04:56 PM Interpretation: Performing Lab:[facility], [address] [place] [address] PH:[phone] Notes/Report:Kikp3468-836 ug/dLURINE CULTURE Reviewed date:10/07/2025 01:01:48 PM Interpretation: Performing Lab:[facility], [address] [place] [address] PH:[phone] Notes/Report:Specimen Description.URINE Culture ESCHERICHIA COLI >100,000 CFU/ML Identification by MALDI-TOF Culture ESCHERICHIA COLI >100,000 CFU/ML 2ND COLONY TYPE Identification by MALDI-TOF Report Status FINAL 10/07/2025 Organism ESCHERICHIA COLI >100,000 CFU/ML Identification by MALDI-TOF Method JUDD Ampicillin <=2 SUSCEPTIBLE Cefazolin (Non-Urine) <=1 SUSCEPTIBLE Cefazolin (Urine) <=1 SUSCEPTIBLE Cefazolin (Urine) Urine specific interpretations are for uncomplicated UTIs only. Ceftriaxone <=0.25 SUSCEPTIBLE Gentamicin <=1 SUSCEPTIBLE Levofloxacin <=0.12 SUSCEPTIBLE Nitrofurantoin <=16 SUSCEPTIBLE Piperacillin/Tazobactam <=4 SUSCEPTIBLE Trimethoprim/Sulfa <=20 SUSCEPTIBLE Organism ESCHERICHIA COLI >100,000 CFU/ML 2ND COLONY TYPE Identification by MALDI-TOF Method JUDD Ampicillin RESISTANT Cefazolin (Non-Urine) <=1 SUSCEPTIBLE Cefazolin (Urine) <=1 SUSCEPTIBLE Cefazolin (Urine) Urine specific interpretations are for uncomplicated UTIs only. Ceftriaxone <=0.25 SUSCEPTIBLE Gentamicin <=1 SUSCEPTIBLE Levofloxacin <=0.12 SUSCEPTIBLE Nitrofurantoin <=16 SUSCEPTIBLE Piperacillin/Tazobactam 32 INTERMEDIATE Trimethoprim/Sulfa <=20 SUSCEPTIBLE Urinalysis Microscopic Reviewed date:10/04/2025 03:05:06 PM Interpretation: Performing Lab:[facility], [address] [place] [address] PH:[phone] Notes/Report:Urine WBC's50 TO 1000 /HPFUrine RBC's2 TO 50-2 /HPFBacteria1+NONE TROPONIN-T Reviewed date:10/04/2025 03:05:06 PM Interpretation: Performing Lab:[facility], [address] [place] [address] PH:[phone] Notes/Report:Troponin, High Sens48 High Sensitivity Troponin values cannot be compared with other Troponin0-14 ng/Lmethodologies.INSULIN Reviewed date:10/04/2025 07:04:56 PM Interpretation: Performing Lab:[facility], [address] [place] [address] PH:[phone] Notes/Report:Collection Info.UNKInsulin5.7Reference Range Fastin.6-24.9 30 min: 20-112 60 min: 29-88 90 min: 26-84 120 min: 22-79 LIPID PANEL Reviewed date:10/04/2025 07:04:56 PM Interpretation: Performing Lab:[facility], [address] [place] [address] PH:[phone] Notes/Report:Tasdufwerfp0871-695 mg/dL Cholesterol Guidelines: <200 Desirable 200-240 Borderline >240 Undesirable Cholesterol,HDL33>40 mg/dL HDL Guidelines: <40 Undesirable 40-59 Borderline >59 Desirable Cholesterol,NIR6732-504 mg/dL LDL Guidelines: <100 Desirable 100-129 Near to/above Desirable 130-159 Borderline >159 Undesirable Direct (measured) LDL and calculated LDL are not interchangeable tests. Chol/HDL Ratio4.6<5.9Xjgrywfscvjmy83<150 mg/dL Triglyceride Guidelines: <150 Desirable 150-199 Borderline 200-499 High >499 Very high Based on AHA Guidelines for fasting triglyceride, July 2012. Cholesterol,XNEQ151-23 mg/dLTSH Reviewed date:10/04/2025 03:05:06 PM Interpretation: Performing Lab:[facility], [address] [place] [address] PH:[phone] Notes/Report:Thyroid Stim. Horm.0.450.27-4.20 uIU/mLPROF CHEM 8 (BAS METB) Reviewed date:10/04/2025 07:04:56 PM Interpretation: Performing Lab: Notes/Report: [facility] ,Jqarjv951424-986 mmol/LPotassium4.93.5-5.1 mmol/SLwqpufxq37440-351 mmol/LCarbon Tpudlbr50.521.0-32.0 mmol/LAnion Gap16.6Utujzqu64012-783 mg/dLBlood Urea Gfmrhavf77.07.0-18.0 mg/dLCreatinine1.710.55-1.02 mg/dLEstimated GFR ( Qepcjht64>=60 mL/min/1.73m 2Estimated GFR (Non- Ame28>=60 mL/min/1.73m 2 BUN Creatinine Ratio34.5Rhstmwx1.18.5-10.1 mg/dLPerforming Lab:see noteML - [facility] LBTroponin I High Sensitivity Reviewed date:10/05/2025 05:55:34 PM Interpretation: Performing Lab: Notes/Report: [facility] ,Troponin I High Hzmylpltmxi28.24.0-51.3 pg/mL CUT-OFF POINTS HAVE BEEN ESTABLISHED BASED ON THE FOURTH UNIVERSAL DEFINITION OF MYOCARDIAL INFARCTION. THE UPPER REFERENCE LIMIT (URL) OF TROPONIN, DEFINED THE 99TH PERCENTILE OF cTnI DISTRIBUTION IN A REFERENCE POPULATION, HAS BEEN CONFIRMED THE DECISION THRESHOLD FOR MT DIAGNOSIS. 99TH PERCENTILE = 51.4 PG/ML NOTE: HIGH-SENSITIVITY TROPONIN ASSAY IS NOT INTENDED TO BE USED IN ISOLATION BUT SHOULD BE INTERPRETED IN CONJUNCTION WITH OTHER DIAGNOSTIC AND CLINICAL INFORMATION. Performing Lab:see noteML - [facility] LBAcetone Reviewed date:10/05/2025 05:55:34 PM Interpretation: Performing Lab: Notes/Report: [facility] ,AcetoneNEGATIVENEGATIVEPerforming Lab:see noteML - [facility] LBUA Micro, reflex to culture Reviewed date:10/05/2025 05:55:34 PM Interpretation: Performing Lab: Notes/Report: [facility] ,Color UrineLT. YELLOWYELLOWClarity UrineCLEARCLEARSpecific [place] Urine1.015 1.005-1.025pH Urine6.05.0-9.0Protein UrineNEGATIVENEG/TRACE mg/dLGlucose Urine UANEGATIVENEGATIVE mg/dLBilirubin UrineNEGATIVENEGATIVEKetones UrineNEGATIVE NEGATIVE mg/dLBlood UrineSMALLNEGATIVENitrite UrineNEGATIVENEGATIVEUrobilinogen Urine0.20.2-1.0 EU/dLLeukocyte Esterase UrineLARGENEGATIVEWBC Itqnq96-00NECW SEEN #/HPFRBC UrineNONE SEEN0-2 #/HPFBacteria UrineMODERATENONE SEEN #/HPFMucus UrineNONE SEENNONE SEENSquamous Epithelial Cell UrineNONE SEENNONE/RARE #/LPF Crystals Seen?None SeenNone Seen #/HPFCast Seen?NONE SEENNONE SEEN #/LPFUrine Culture IndicatedYES-FRMCPerforming Lab:see noteML - [facility] LB Urine Culture - [facility] Reviewed date:10/05/2025 05:55:34 PM Interpretation: Performing Lab: Notes/Report: [facility] ,Urine Culture - FRMCSee Below For Report Urine Culture - [facility] PEND Pending - Specimen sent to [facility]^Pending - Specimen sent to [facility] Performing Lab:see noteML - [facility] LBECG 12 lead Reviewed date:10/05/2025 05:55:34 PM Interpretation: Performing Lab: Notes/Report: Source Facility: [facility]-[address] [place] [address] [place] [address] Electrocardiograph Report Signed Patient: BERNARDA AMAYA MR#: [id number] : 1935 Acct:[id number] Age/Sex: 89 / F ADM Date: 10/04/25 Loc: ER Attending Dr: Ordering Physician: Jannet Huang Date of Service: 10/04/25 Procedure(s): ECG 12 lead Accession Number(s): [id number] cc: [facility] Test Date: 2025-10-04 Pat Name: BERNARDA AMAYA Department: Room: - Gender: Female 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 Measurements Intervals [place] Rate: 114 P: 46 DC: 152 QRS: -22 QRSD: 88 T: 73 QT: 320 QTc: 388 Interpretive Statements Sinus tachycardia with premature ventricular contractions 3114 Cannot rule out anterior myocardial infarction, age undetermined 8102 Low QRS voltage in chest leads 9150 abnormal ECG Compared to ECG 09/23/2021 00:06:20 Myocardial infarct finding now present Low QRS voltage now present Sinus rhythm no longer present Electronically Signed On 10-04-2025 19:54:34 EST by GARFIELD GREEN M.D. Dictated By: GARFIELD GREEN Signed By: 10/04/251954 DD/ 56 TD/TT: Hand Scudder:MARY chest 1V Reviewed date:10/04/2025 07:04:56 PM Interpretation: Performing Lab: Notes/Report: Source Facility: [place] [address] XRay Report Signed Patient: BERNARDA AMAYA MR#: [id number] : 1935 Acct:[id number] Age/Sex: 89 / F ADM Date: 10/04/25 Loc: ER Attending Dr: Ordering Physician: Jannet Huang Date of Service: 10/04/25 Procedure(s): XR chest 1V Accession Number(s): [id number] cc: Yared Martinez M.D.; Jannet Huang [place] [address] Patient Name: BERNARDA AMAYA MRN: [facility]:[id number] date: 1935 Sex: F Assigned Patient Location: ER Current Patient Location: ED.MAIN Accession/Order Number: [id number] Exam Date: 10/04/2025 17:38 Report Date: 10/04/2025 18:40 At the request of: JANNET HUANG MD Procedure: XR chest 1V XR chest 1V 10/04/2025 5:41 PM SIGNS AND SYMPTOMS: Cough, history of heart failure PROTOCOL: Frontal radiograph of the chest COMPARISON: 09/23/2021 FINDINGS: The trachea is midline. There is cardiomegaly. There is perihilar vascular prominence, interstitial prominence, and hazy bilateral airspace opacity. The bony thorax is intact. XR/XR chest 1V IMPRESSION: Findings suggest congestive heart failure. Impression dictated by: Chad Gillette M.D. 10/04/2025 6:40 PM Dictation Location: [place] [address] Electronically authenticated by: [id number] Y Date: 10/04/2025 18:40 Dictated By: Chad Gillette M.D. Signed By: 10/04/251842 DD/ 39 TD/TT: Hand Scudder:Troponin I High Sensitivity Reviewed date:10/05/2025 05:55:34 PM Interpretation: Performing Lab: Notes/Report: [facility] ,Troponin I High Odwzywkecek38.74.0-51.3 pg/mL CUT-OFF POINTS HAVE BEEN ESTABLISHED BASED ON THE FOURTH UNIVERSAL DEFINITION OF MYOCARDIAL INFARCTION. THE UPPER REFERENCE LIMIT (URL) OF TROPONIN, DEFINED THE 99TH PERCENTILE OF cTnI DISTRIBUTION IN A REFERENCE POPULATION, HAS BEEN CONFIRMED THE DECISION THRESHOLD FOR MT DIAGNOSIS. 99TH PERCENTILE = 51.4 PG/ML NOTE: HIGH-SENSITIVITY TROPONIN ASSAY IS NOT INTENDED TO BE USED IN ISOLATION BUT SHOULD BE INTERPRETED IN CONJUNCTION WITH OTHER DIAGNOSTIC AND CLINICAL INFORMATION. Performing Lab:see noteML - [facility] LBCBC AUTO DIFF Reviewed date:10/05/2025 05:55:34 PM Interpretation: Performing Lab: Notes/Report: [facility] ,White Blood Count9.64.0-11.0 10 3/uLRed Blood Count3.454.20-5.40 10 6/uL Ebhmuzgzjm85.912.0-16.0 g/zYNwdjwvsjvx79.536.0-48.0 %Mean Corpuscular Ilamiy53.1 81.0-99.0 fLMean Corpuscular Vhaffaoqve25.626.7-34.0 pgMean Corpuscular HGB Conc 32.529.9-35.2 g/dLRed Cell Distribution Width14.511.0-15.0 %Platelet Bynmm879 150-450 10 3/uLMean Platelet Qdssue85.99.5-13.5 fLNeutrophils Percent Auto67.9 43.0-75.0 %Lymphocytes Percent Auto18.920.5-60.0 %Monocytes Percent Auto8.31.7- 12.0 %Eosinophils Percent Auto3.70.9-7.0 %Basophils Percent Auto0.80.2-2.0 % Immature Granulocytes Pct Auto0.40.0-0.5 %Neutrophils Absolute Auto6.51.4-6.5 10 3/uLLymphocytes Absolute Auto1.81.2-3.8 10 3/uLMonocytes Absolute Auto0.80.3-0.8 10 3/uLEosinophils Absolute Auto0.40.0-0.7 10 3/uLBasophils Absolute Auto0.10.0- 0.1 10 3/uLImmature Granulocytes Abs Auto0.040.00-0.03 10 3/uLPerforming Lab:see noteML - [facility] LBFERRITIN Reviewed date:10/05/2025 05:55:34 PM Interpretation: Performing Lab: Notes/Report: [facility] ,Gtycgrth568.08.0-252.0 ng/mLPerforming Lab:see noteML - [facility] LBGLYCOHEMOGLOBIN A1C Reviewed date:10/05/2025 05:55:34 PM Interpretation: Performing Lab: Notes/Report: [facility] ,Glycohemoglobin A1C6.34.5-6.2 % ADA RECOMMENDED LIMIT 4.0 - 6.0 ADA THERAPEUTIC TARGET < 7.0 ACTION SUGGESTED > 7.0 Estimated Average Dpghsru786Rrhnucykkx Lab:see noteML - [facility] LB IRON AND TIBC Reviewed date:10/05/2025 05:55:34 PM Interpretation: Performing Lab: Notes/Report: [facility] ,Iron38.050.0-170.0 ug/dLTotal Iron Binding Whdggtoz072.0250.0-450.0 ug/dL Percent Iron Xbspmnlsqi13.2Performing Lab:see noteML - [facility] LB LIPID PROFILE Reviewed date:10/05/2025 05:55:34 PM Interpretation: Performing Lab: Notes/Report: [facility] ,Encpyykswyyim54<=150 mg/pHDfalsgkclxo843<=200 mg/dLHDL Oleitpxbpiv4254-21 mg/dL > or =60 mg/dl - LOW CARDIOVASCULAR RISK <40 mg/dl - HIGH CARDIOVASCULAR RISK LDL Cholesterol Bldynwsbvj14.0 <100 mg/dl OPTIMAL 100-129 mg/dl NEAR OR ABOVE OPTIMAL 130-159 mg/dl BORDERLINE HIGH 160-189 mg/dl HIGH >190 mg/dl VERY HIGH VLDL DGFJVCUMILA50.4Chol HDL Ratio4.3 3.3 - 4.4 LOW RISK 4.4 - 7.1 AVERAGE RISK 7.1 - 11.0 MODERATE RISK >11.0 HIGH RISK Performing Lab:see noteML - [facility] LBLIVER PROFILE Reviewed date:10/05/2025 05:55:34 PM Interpretation: Performing Lab: Notes/Report: [facility] ,Bilirubin Direct0.10.0-0.2 mg/dLPerforming Lab:see noteML - [facility] LBPROF 14(COMP METB) Reviewed date:10/05/2025 05:55:34 PM Interpretation: Performing Lab: Notes/Report: [facility] ,Naumbv300949-008 mmol/LPotassium4.43.5-5.1 mmol/RHxajchcv51732-282 mmol/LCarbon Dmddqon38.221.0-32.0 mmol/LAnion Gap16.5Zyccche49210-800 mg/dLBlood Urea Qjmpgbme71.07.0-18.0 mg/dLCreatinine1.640.55-1.02 mg/dLEstimated GFR ( Rvocngo12>=60 mL/min/1.73m 2Estimated GFR (Non- Ame30>=60 mL/min/1.73m 2 BUN Creatinine Ratio37.1Urtzrik6.78.5-10.1 mg/dLBilirubin Total0.20.2-1.0 mg/dL Aspartate Amino Fdmhhxzhern5353-26 U/LAlanine Xvoklkjwowpntrza2373-44 U/L Alkaline Qczvocnnzjd8318-255 U/LTotal Protein6.66.4-8.2 g/dLAlbumin Level2.63.4- 5.0 g/dLGlobulin4.0Albumin Globulin Ratio0.7Performing Lab:see noteML - [facility] LBVitamin B12 Reviewed date:10/06/2025 12:32:45 PM Interpretation: Performing Lab: Notes/Report: [facility] ,Vitamin B12>5650133-9050 pg/mL Performed at: [facility] Lab[address] [id number] Bill Hiker: Junior Martinez PhD, Phone: [phone] Performing Lab:see note - [facility] LBECG 12 lead Reviewed date:10/06/2025 12:32:45 PM Interpretation: Performing Lab: Notes/Report: Source Facility: [place] [address] Electrocardiograph Report Signed Patient: BERNARDA AMAYA MR#: [id number] : 1935 Acct:[id number] Age/Sex: 89 / F ADM Date: 10/04/25 Loc: [place] 219-[address]: Caridad Velazquez M.D. Ordering Physician: Caridad Velazquez M.D. 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 Measurements Intervals [place] Rate: 90 P: 72 DC: 151 QRS: -22 QRSD: 108 T: 25 QT: 389 QTc: 477 Interpretive Statements SINUS RHYTHM WITH OCCASIONAL VENTRICULAR PREMATURE COMPLEXES BORDERLINE LEFT AXIS DEVIATION [QRS AXIS < -20] Borderline ECG Compared to ECG 10/04/2025 16:57:48 Sinus tachycardia no longer present Myocardial infarct finding no longer present Electronically Signed On 10-05-2025 20:54:19 EST by GARFIELD GREEN M.D. Dictated By: GARFIELD GEREN Signed By: 10/05/252053 DD/ 0 TD/TT: Hand Scudder:US renal BI Reviewed date:10/05/2025 05:55:34 PM Interpretation: Performing Lab: Notes/Report: Source Facility: [place] [address] Ultrasound Report Signed Patient: BERNARDA AMAYA MR#: [id number] : 1935 Acct:[id number] Age/Sex: 89 / F ADM Date: 10/04/25 Loc: [place] 219-[address]: Caridad Velazquez M.D. Ordering Physician: Caridad Velazquez M.D. Date of Service: 10/05/25 Procedure(s): US renal BI Accession Number(s): [id number] cc: Yared Martinez M.D.; Caridad Velazquez M.D. [place] [address] Patient Name: BERNARDA AMAYA MRN: [id number] date: 1935 Sex: F Assigned Patient Location: [place] Current Patient Location: [place] Accession/Order Number: [id number] Exam Date: 10/05/2025 08:01 Report Date: 10/05/2025 09:23 At the request of: CARIDAD VELAZQUEZ MD Procedure: US renal BI BILATERAL RENAL AND BLADDER ULTRASOUND CLINICAL HISTORY: Renal failure r/o obstructive uropathy COMPARISON: None Estimation of renal size is approximately 10.6 cm on the right and 10.7 cm on the left. No shadowing calculi are identified. There is mild fullness of the renal collecting systems bilaterally, right slightly worse than left. There are a couple renal cysts within each kidney. These measure 15 and 16 mm on the right and 16 and 7 mm on the left. There is no perinephric fluid. The urinary bladder is partially distended with a volume of 267 mL. No contour or intraluminal abnormalities are seen. US/US renal BI IMPRESSION: SMALL BILATERAL RENAL CYSTS. MILD BILATERAL HYDRONEPHROSIS. Impression dictated by: Marnie Nelson M.D. 10/05/2025 9:23 AM Dictation Location: [place] [address] Electronically authenticated by: [id number] Y Date: 10/05/2025 09:23 Dictated By: Marnie Nelson M.D. Signed By: 10/05/25925 DD/ 2 TD/TT: Hand Scudder:TSH Reviewed date:08/18/2025 12:10:30 PM Interpretation: Performing Lab:[facility], [address] [place] [address] PH:[phone] Notes/Report:Thyroid Stim. Horm.1.180.27-4.20 uIU/mLHGB A1C (GLYCO-HGB) Reviewed date:08/18/2025 05:01:07 PM Interpretation: Performing Lab:[facility], [address] [place] [address] PH:[phone] Notes/Report:Hemoglobin A1C6.94.0-6.0 %Estimated Ave Bmtz711 The ADA and AACC recommend providing the estimated average glucose result topermit better patient understanding of their HBA1c result.COMPREHENSIVE METABOLIC PANEL Reviewed date:08/18/2025 12:10:30 PM Interpretation: Performing Lab:[facility], [address] [place] [address] PH:[phone] Notes/Report:NA (Sodium)795708-033 mmol/LK (Potassium)5.23.7-5.3 mmol/LChloride 40905-475 mmol/XZD92290-73 mmol/LAnion Viq521-55 mmol/EFcvngmt56451-74 mg/dLBUN (Urea N)468-23 mg/dLCreatinine1.40.5-0.9 mg/iHsCPA83>60 mL/min/1.73m2 These results are not intended for [...] following therapy that affects renal tubular secretion. 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) Diagnosis 3 CHF (congestive hear t failure) (I50.9) Referral Organization [facility] Referring Provider First Name Hermelindo Referring Provider Last Name Michelle Referring Provider [facility] Referred Provider [facility] Cardiology, [facility] Referred Provider Specialty Cardiology Referral Priority Routine Diagnosis 1 CHF (congestive hear t failure) (I50.9) Diagnosis 2 Encounter for Medica re annual wellness exam (Z00.00) Referral Organization [facility] Referring Provider First Name Hermelindo Referring Provider Last Name Michelle Referring Provider [facility] Referred Provider Specialty Home Health Agency Referral Priority Routine Medications Medication SIG (Take, Route, Frequency, Duration) Notes Start Date End Date Status Carvedilol 25 MG 1 tablet with food Orally Twice a day; Duration: 90 days ActivePlavix 75 MG1 tablet Orally Once a dayActiveCarafate 1 GM1 tablet on an empty stomach Orally ac and hsActivePen [place] /16 31G X 8 MMas directed ActiveLasix 40 MG1 tablet Orally Once a day; Duration: 3 days5Active Dexcom G6 Computer Systems Designer -as directedActiveFerrous Sulfate 325 (65 Fe) MG1 [...] Administration Date Status Comme nts Flu, Fluad (51242) 65 yrs+, single-dose syringe (5291-1309) Unknown 08/14/2022 Administered Flu, Fluzone High-Dose (9205-9434) (10678) 67 yrs+Zbvgcos6708/26/2020Administered Flu, Fluzone High-Dose (6749-7764) (44048) 67 yrs+Bgnbugx0008/29/2021dministered Pneumococcal (Prevnar 13)Qvvlfbd8209/05/2017AdministeredZoster (Zostavax)Unknown 10/19/2013dministered Social History Tobacco Use: Social History Observation Description Date Details (start date - stop date) Never Smoker NA - NA Tobacco Use/Smoking Question Answer Notes Patient is a nonsmoker Alcohol Screen (Audit-C) Question Answer Notes Did you have a drink containing alcohol in the p ast year? No Wofops2QcpishpwxsisluBudanpsaSZFWO-Q (Standard) Question Answer Notes Did you have a drink containing alcohol in the p ast year? No Nimawc9SeppcihwozogknFzyvwzrb Problems Problem Type SNOMED Code ICD Code Onset Dates Problem Status W/U Status Risk Notes Problem Conductive hearing l oss, bilateral (454145847) Conductive hearing loss, bilateral (H90.0) ActiveconfirmedProblemIschemic cardiomyopathy (564700556)Ischemic cardiomyopathy (I25.5)ActiveconfirmedProblemPremature beats (97531322)Unspecified premature depolarization (I49.40)ActiveconfirmedProblemMidline cystocele (362262025) Cystocele, midline (N81.11)ActiveconfirmedProblemHypertension (86091767) Hypertension (I10)ActiveconfirmedProblemOsteoarthritis (415650556)Osteoarthritis (M19.90)ActiveconfirmedProblemCongestive heart failure (51915640)CHF (congestive heart failure) (I50.9)ActiveconfirmedProblemCoronary artery disease (40791689) CAD (coronary artery disease) (I25.10)ActiveconfirmedProblemGout (04331727)Gout (M10.9)ActiveconfirmedProblemTransient ischemic attack (897737821)TIA (transient ischemic attack) (G45.9)ActiveconfirmedProblemMitral valve regurgitation (16509818)Mitral valve regurgitation (I34.0)ActiveconfirmedProblemAcute bronchitis (52584831)Acute bronchitis (J20.9)ActiveconfirmedProblemPseudophakia (88101074)Pseudophakia (Z96.1)ActiveconfirmedProblemGastritis (8418391)Gastritis (K29.70)ActiveconfirmedProblemWell adult (517674552)Well adult (Z00.00)Active confirmedProblemHemorrhoids (36451759)Hemorrhoids (K64.9)ActiveconfirmedProblem Overweight (491232327)Overweight (BMI 25.0-29.9) (E66.3)ActiveconfirmedProblem Aortic valve sclerosis (12963855)Aortic valve sclerosis (I35.8)Activeconfirmed ProblemPulmonary vascular congestion (R09.89)ActiveconfirmedProblemSevere left ventricular systolic dysfunction (294050344438)Severe left ventricular systolic dysfunction (I51.9)ActiveconfirmedProblemAt risk for falls (193614589)At risk for falls (Z91.81)ActiveconfirmedProblemCardiomegaly (1522648)Atrial enlargement, left (I51.7)ActiveconfirmedProblemMacular edema and retinopathy due to type 2 diabetes mellitus (35616326510690)Type 2 diabetes mellitus with proliferative diabetic retinopathy with macular edema, 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) ActiveconfirmedProblemAcute non-ST segment elevation myocardial infarction (001865136)Acute non-ST elevation myocardial infarction (NSTEMI) (I21.4)Active confirmedProblemPulmonary hypertension (43098490)Pulmonary hypertension (I27.20) ActiveconfirmedProblemAbnormal results of cardiovascular function studies (709387320)Cardiac LV ejection fraction 21-40% (R94.30)ActiveconfirmedProblem 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)ActiveconfirmedProblemChronic kidney disease stage 3 (disorder) (003545109)Chronic kidney disease, stage III (moderate) (N18.30)ActiveconfirmedProblemChronic low back pain (finding) (602658053)Chronic midline low back pain without sciatica (M54.50)Active confirmed Vital Signs Blood pressure diastolic 80 mm Hg 10/03/2025 Cioimt00 in10/03/2025lood pressure uqkkasvt941 mm Hg10/03/20258677Sycykp511 lbs 10/03/2025BMI24.39 kg/m210/03/2025 Encounters Encounter Location Date Provider Diagnosis [facility] [address] [place] [address] 10/03/2025 Hermelindo Martinez Type 2 diabetes anamaria itus with proliferative diabetic retinopathy with macular edema, bilateral E11.3513 ; Pulmonary hypertension I27.20 ; TIA (transient ischemic attack) G45.9 ; Gastritis K29.70 and CHF (congestive heart failure) I50.9 [facility] [address] [place] [address] 08/11/2025 Hermelindo Lockwoodremedios Hypertension I10 ; Ischemic cardiomyopathy I25.5 ; Type 2 diabetes mellitus with proliferative diabetic retinopathy with macular edema, bilateral E11.3513 and Encounter for Medicare annual wellness exam Z00.00 [facility] [address] [place] [address] 12/06/2024 Hermelindo Lockwoody [facility] [place] [address] 05/09/2025Hermelindo [facility] [facility] [place] [address]/Doug [facility] [facility] [place] [address]/10/2024Doug [facility] [facility] [place] [address]/Doug [facility] [facility] [place] [address]/Doug [facility] [facility] [place] [address]/ Hermelindo [facility] [facility] [place] [address] 08/11/2025Doug HoyHypertension I10 ; Ischemic cardiomyopathy I25.5 and CHF (congestive heart failure) I50.9[facility] [facility] [place] [address]/Doug [facility] [address] [place] [address]/Doug [facility] [facility] [place] [address]/Doug [facility] [facility] [place] [address] 10/03/2025Doug HoyCHF (congestive heart failure) I50.9 and Weakness R53.1BF[facility] [facility] [place] [address]/ Hermelindo [facility] [facility] [place] [address]/Doug [facility] [facility] [place] [address]/Doug [facility] [facility] [place] [address]/Doug Hoy Assessments Encounter Date Diagnosis (ICD Code) Assessment Notes Treatment Notes Treatment Clinical Notes Section Notes 08/11/2025 Hypertension (ICD-10 - I10) patient was seen for a subsequent medicare wellness appointment, completed was a anxiety, depression and safety screening all without concern. patient alson completed a memory test and the patient scored a 28/30. patient was due for all yearly labs which were ordered and printed for the patient to get them done in ray. Patient declined annual flu shop08/11/2025Ischemic cardiomyopathy (ICD- 10 - I25.5)patient was seen for a subsequent medicare wellness [...] bilateral (ICD-10 - E11.3513)10/03/2025Pulmonary hypertension (ICD-10 - I27.20) 08/11/2025Hypertension (ICD-10 - I10)08/11/2025Ischemic cardiomyopathy (ICD-10 - I25.5)10/03/2025HF (congestive heart failure) (ICD-10 - I50.9)10/03/2025 Weakness (ICD-10 - R53.1)08/11/2025HF (congestive heart failure) (ICD-10 - I50.9)10/03/2025TIA (transient ischemic attack) (ICD-10 - G45.9)08/11/2025Type 2 diabetes mellitus with proliferative diabetic retinopathy [...] in ray. Patient declined annual flu shop 08/11/2025Encounter for Medicare annual wellness exam (ICD-10 - [...] done in ray. Patient declined annual flu shop10/03/2025Gastritis (ICD-10 - K29.70) 10/03/2025HF (congestive heart failure) (ICD-10 - I50.9)seeing cardiologu [...] 10/03/2025 Urinalysis Microscopic 10/03/2025 Insulin Level 10/03/2025 COMPREHENSIVE METABOLIC PROFILE WITH GFR 12/26/2023 COMPREHENSIVE METABOLIC PROFILE WITH GFR 08/11/2025 OCCULT BLOOD, FECAL, IMMUNOASSAY 025 CBC W/AUTO DIFF 08/11/2025 High Sensitivity Troponin 10/03/2025 STOOL OCCULT BLOOD 10/03/2025 STOOL OCCULT BLOOD 02/19/2023 CULTURE URINE 10/03/2025 GLYCOHEMOGLOBIN A1C 08/11/2025 THYROID PANEL (T4/TSH/FREE T3) 5 THYROID PANEL (T4/TSH/FREE T3) 4 THYROID PANEL (T4/TSH/FREE T3) 3 THYROID PANEL (T4/TSH/FREE T3) 5 Vitamin D 08/11/2025 Lipid Panel 08/11/2025 CMP (COMP MET COVARRUBIAS) w/eGFR CKD-EPI 2024 CBC WITH DIFF 10/03/2025 Next Appt Details Provider Name:Hermelindo Martinez, 02:30:00 PM, [address] [facility], [place], [address], Insurance Providers Payer Name Payer Address Payer Phone Subscriber Number Group Number Insured Name Patient Relationship to Insured Coverage Start Date Coverage End Date [place]IC[place] [address] [place] [address] [id number] Gemma Amayaelf - patient is the [id number] MEDICARE [address]PP[address]MENTPO [address] [place] [id number], Nancy Self - patient is the [id number] 2019 Medical (General) History Medical History History [...]
--- OUTSIDE RECORDS SUMMARY | 2025-10-07 14:37 | XMS_ITS | Clinical Summary ---
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 180 tablet ctive hydrALAZINE (APRESOLINE) 50 mg tablet Indications:Coronary artery disease involving pamunkey coronary artery of [place] heart without angina pectoris,Essential hypertension,HFrEF (heart failure with reduced ejection fraction) (HCC),PVC (premature ventricular contraction),History of coronary artery stent placement,SOB (shortness of breath),Family history of atrial fibrillationTake 1 tablet by mouth two times a day. Only if your blood pressure is greater than 120 180 tablet ctive isosorbide dinitrate (ISORDIL) 20 mg tablet Indications:Coronary artery disease involving [place] coronary artery of [place] heart without angina pectoris,Essential hypertension,HFrEF (heart failure [...] to underlying condition with diabetic chronic kidney gigrnqr7906/07/2023cute on chronic systolic congestive heart yqekmbc3410/07/2021History of coronary artery stent placement 09/07/2021ssential ypxoxoypqlky91/19/2021OB (shortness of breath)09/07/2021 HFrEF (heart failure with reduced ejection fraction)09/07/2021VC (premature ventricular contraction)09/07/2021Family history of atrial fibrillation 09/07/2021oronary artery disease of pam[place] artery of [place] heart with stable angina uwwkbhkp36/07/2020 Encounters DateTypeDepartmentCare CjvpIuebktvhlyv12/19/2025[facility] [address] [place], [place] [address] Lorena Leslie MD Refill Requestfrom Last 3 [...] RecordedNational Score (1-100), lower number is lower sfir767206/03/2023State Score (1-10), lower number is lower risk4 3Data from: https://www.neighborhoodatlas.medicine.[facility].edu/. Last address used for rltzxohwhpa[address]CommentsNo Sex and Gender InformationValueDate RecordedSex Assigned at BirthFemale 08/29/2022 6:34 PM ESTLegal AirIrzjnx22/05/2017 12:06 PM ESTGender Identity Ksgozd3108/29/2022 6:34 PM ESTSexual AcjoeobdyrjDuyszdlu10/10/2022 6:34 PM EST Last Filed Vital Signs Vital SignReadingTime TakenCommentsBlood Bljvukje279/7004 2:05 PM EDT Pjozw9004 2:05 PM VRQVdmmvoxxasr22.7 ??C (98 ??F)08/31/2020 1:22 PM EST Respiratory Bfmr115001/27/2025 2:05 PM EDTOxygen Usffpaucwv12%01/27/2025 2:05 PM EDTInhaled Oxygen Concentration--Obcvdu40.2 kg (168 lb)01/27/2025 2:05 PM EDT Lozdll243.2 cm (5' 7 )01/27/2025 2:05 PM EDTBody Mass Index26.31001/27/2025 2:05 PM EDT Plan of Treatment Health MaintenanceDue DateLast DoneCommentsDiabetic Foot Exam1947Dilated Retinal Exam1947Urine Albumin:Creatinine Ratio1947nxiety Screening 1955Depression Ztflqlzij93/22/1955one Density Thfrbkopf63/22/2002Medicare Annual Wellness Visit12/19/2003RSV Vaccine (1 - 1-dose 75+ series)2012 Shingrix Vaccine (2 of 3)Pneumococcal Vaccine: 50+ (2 of 2 - PPSV23, PCV20, or PCV21)DTaP,Tdap,Td Vaccine (2 - Td or Tdap)/8098CvZ2P39/14//, 01/01/2024, 02/25/2023, Additional history existsAdvance Directive Tlfikhvwwb82/01/2025LDL Cholesterol 507/, 01/01/2024, 02/25/2023, Additional history existsCovid-19 Vaccine ( - 2024- season)2025Influenza Vaccine (#1)2025 08/14/2022, 08/29/2021, 08/26/2020 Goals GoalPatient Goal TypeAssociated ProblemsRecent ProgressPatient-Stated?Author Blood Pressure < 130/80 Blood Sryperrr158/70(01/27/2025 2:05 PM EDT)Zaida Griffiths Procedures Procedure NamePriorityDate/TimeAssociated DiagnosisCommentsLIPID PANEL, FASTING Qocxduk2905/13/2024 3:21 PM EDT 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 (HCC) History of coronary artery stent placement HFrEF (heart failure with reduced ejection fraction) ([facility]) Essential hypertension PVC (premature ventricular contraction) Diabetes mellitus due to underlying condition with diabetic chronic kidney disease, unspecified CKDstage, unspecified whether long term care pharmacist insulin use (HCC) Stage 2 chronic kidney disease HEMOGLOBIN J4WUjythrd21/07/2020 12:37 PM EST from Last 3 Months or Most Recently Relevant to Health Maintenance Results * LIPID PANEL BASIC (05/13/2024 3:21 PM EDT)ComponentValueRef RangeTest Method Analysis TimePerformed AtPathologist SignatureCholesterol, Eikyg034<200 mg/dL 05/13/2024 9:52 PM [facility]Comment: <200 mg/dL, Desirable 200-239 mg/dL, Borderline high >239 mg/dL, High Meadkhwscodd46<150 mg/dL05/13/2024 9:52 PM [facility] Comment: <150 mg/dL, Normal 150-199 mg/dL, Borderline high 200-499 mg/dL, High >499 mg/dL, Very high HDL Czcdggjejfb81>39 mg/dL05/13/2024 9:52 PM [facility] Comment: 40-59 mg/dL, Acceptable >59 mg/dL, High: Negative risk factor for coronary heart disease <40 mg/dL, Low: Positive risk factor for coronary heart disease Non HDL Mkhcxexdtdw172<130 mg/dL05/13/2024 9:52 PM [facility]Comment: <130 mg/dL, Optimal 130-159 mg/dL, Near optimal/above optimal 160-189 mg/dL, Borderline high 190-219 mg/dL, High >219 mg/dL, Very high Secondary prevention optimal non HDL Cholesterol levels are recommended to be <100 mg/dL Fasting Olrl2fsj85/25/2024 9:52 PM [facility] LABVLDL Secsdpvibxz02<30 mg/dL05/13/2024 9:52 PM [facility] TC:HDL Ratio3.02<5.1007 9:52 PM [facility] LABLDL Cholesterol, Hfhfdgvnqx45<100 mg/dL05/13/2024 9:52 PM [facility]Comment: <100 mg/dL, Optimal 100-129 mg/dL, Near optimal/above optimal 130-159 mg/dL, Borderline high 160-189 mg/dL, High >189 mg/dL, Very high Secondary prevention optimal LDL Cholesterol levels are recommended to be < 70 mg/dL LDL:HDL Ratio1.82<2.54005/13/2024 9:52 PM [facility] Comment: Reference: 1. National Cholesterol Education Program ATP III Guideline At-A-Glance Quick Desk Reference: National Heart, Lung, and Blood [place]. National Institutes of Health. 2001: NIH Publication No. 01-3305. 2. An International Atherosclerosis Society position paper: global recommendations for the management of dyslipidemia: executive summary, Atherosclerosis. 2014: 232(2):410-413. Specimen (Source)Anatomical Location / LateralityCollection Method / Volume Collection TimeReceived TimeBloodBLOOD SPECIMEN / UnknownVenipuncture / Unknown 05/13/2024 3:21 PM EDT05/13/2024 3:21 PM EDT Narrative Authorizing ProviderResult TypeResult StatusDaniel [facility] PA-CLABORATORYFinal ResultPerforming OrganizationAddressCity/State/ZIP CodePhone Number [facility] [address] * (ABNORMAL) HGB A1C (08/26/2020 12:37 PM EST)ComponentValueRef RangeTest Method Analysis TimePerformed AtPathologist SignatureHemoglobin A1C6.1(H)4.3 - 5.6 % 08/27/2020 7:44 AM ESTGrant Hospital LaboratoriesComment: [place] Diabetes Association guidelines indicate that patients with HgbA1c in the range 5.7-6.4% are at increased risk for development of diabetes, and intervention by lifestyle modification may be beneficial. HgbA1c greater or equal to 6.5% is considered diagnostic of diabetes. Estimated Average Uyefshl154qt/dL08/27/2020 7:44 AM ESTGrant Hospital LaboratoriesComment: eAG: (Estimated average glucose) is a calculated value from HgbA1c and is insurance claim representative of the average blood glucose level in the last 2-3 month period. Specimen (Source)Anatomical Location / LateralityCollection Method / Volume Collection TimeReceived TimeBloodWHOLE BLOOD SPECIMEN / Bggcyas6808/26/2020 12:37 PM EST08/26/2020 12:38 PM EST Narrative Authorizing ProviderResult TypeResult StatusLuke Simba GORDONLABORATORYFinal Result Performing OrganizationAddressCity/State/ZIP CodePhone Number [facility] [address] [place] [address] [facility] [address] [place] [address] from Last 3 Months or Most Recently Relevant to Health Maintenance Insurance Advance Directives * Full Code (Latest Code Status on File) Date ActivatedDate OidjojlxcdwPpnovbvh73/7/2020 12:24 PM08/31/2020 5:40 PM QuestionAnswerCommentsFull Code Order Discussed With:* Patient Care Teams Team MemberRelationshipSpecialtyStart DateEnd Yared Martinez MD PCP - GeneralF[facility]or[facility] Medicine02/22/16 Lorena Leslie MD Primary Staff PhysicianCardiology10/22/21
--- OUTSIDE RECORDS SUMMARY | 2025-10-07 14:38 | XMS_ITS | Clinical Summary ---
Author Organization [facility] Address [facility] [place] [address] Care Team Providers Care Fiber Technologist Name Role Phone Sarmad Buckner DO Primary Care Pro vider Allergies Active AllergyReactionsCriticalityNoted DateCommentsAdhesive Tape-Silicones 02/07/2017Oxycodone-Rloidgkgoyaol38/21/2017Hydrocodone-AcetaminophenGI Nygwdgssygr57/21/2017 Medications MedicationSigDispense QuantityRefillsLast FilledStart DateEnd DateStatus hydrALAZINE [...] . Active Active Problems ProblemNoted DateDiagnosed DateEssential jeerzqgupdex95/25/2017Diabetes 02/07/2017 Social History Tobacco UseTypesPacks/DayYears UsedDateSmoking Tobacco: NeverSmokeless Tobacco: Never Tobacco Cessation:Counseling Given: No Alcohol UseStandard Drinks/WeekCommentsNo0 (1 standard drink = 0.6 oz pure alcohol)CommentsNoSex and Gender InformationValueDate RecordedSex Assigned at BirthNot on fileLegal EohCswgyf45/21/2017 9:05 AM EDTGender Identity Not on fileSexual OrientationNot on file Last Filed Vital Signs Vital SignReadingTime TakenCommentsBlood Btxvmsbn311/00034 9:37 AM EDT Hbhlw5435 9:33 AM SZSPngjbvfrqku38.6 ??C (97.9 ??F)02/07/2018 9:33 AM EDTRespiratory Rate--Oxygen Saturation--Inhaled Oxygen Concentration--Tifbtt18 kg (205 lb)02/07/2018 9:33 AM KARYafvfe611.3 cm (5' 9 )02/07/2018 9:33 AM EDT [...] ProblemsRecent ProgressPatient-Stated?Author Blood Pressure < 130/80 Blood Raiiolhp789/100(02/07/2018 9:37 AM EDT)Brenda Orellana Note: High blood pressure makes your heart work too hard. It can cause heart attack, stroke and kidney disease. HEMOGLOBIN A1C < 8.0 Result ComponentNoPBrenda uriarte Note: Blood sugar levels outside the normal range may be an indicator of diabetes. Insurance PART A CLAIMS [facility] [id number] [place] [address] Care Teams Team MemberRelationshipSpecialtyStart DateEnd Sarmad Buckner DO [address] [place] [address] PCP - GeneralFamily Medicine02/07/17
--- OUTSIDE RECORDS SUMMARY | 2025-10-07 14:38 | XMS_ITS | Clinical Summary ---
Author Organization [facility] Address [address] [place] [address] Care Team Providers Care Script Coordinator Name Role Phone Unavailable Primary Care Provider Unavailabl e Active Problems ProblemNoted DateDiagnosed DateDisorder of adrenal gland10/04/2025 Overview (10/04/2025): Removed when pt was in her 40s Hrixdwvij08/16/2025Diabetes mellitus due to underlying condition with diabetic chronic kidney xngzfyu5106/07/2023cute on chronic systolic congestive heart iztsrgk7110/07/2021Family history of atrial otwhgwyvbhym33/19/2021HFrEF (heart failure with reduced ejection fraction)09/07/2021History of coronary artery stent rffxbspan12/19/2021VC (premature ventricular contraction)09/07/2021OB (shortness of breath)09/07/2021oronary artery disease of [place] artery of [place] heart with stable angina xawroxnt92/07/2020Essential hypertension 02/11/2017 Encounters DateTypeDepartmentCare EdyhCzlxzqupmfy96/10/2025Telephone [facility] at [address] [address] Leonor Lanier MA from Last 3 Months Social History Tobacco UseTypesPacks/DayYears UsedDateSmoking Tobacco: NeverSmokeless Tobacco: Never Tobacco Cessation:Counseling Given: Not Answered CommentsUnknownSex and Gender InformationValueDate RecordedSex Assigned at UzntpMpqwgy85/26/2025 10:33 AM ESTLegal HpqIuponx69/24/2025 9:33 AM EDTGender SaeezpcaZmdtvf32/26/2025 10:33 AM ESTSexual OrientationHeterosexual or Straight 09/14/2025 10:33 AM EST Plan of Treatment Health MaintenanceDue DateLast DoneCommentsDiabetes: Hemoglobin A1C1937 Medicare Annual Wellness (AWV)1937Diabetes: Retinopathy Screening 1947Depression Uylucplmb39/22/1949Zoster Vaccines (1 of 2)1987 10/19/2013Fall Risk Ahcgqnbzl68/22/2002Pneumococcal Vaccine: 50+ Years (2 of 2 - PPSV23, PCV20, or PCV21)Adult Djlkhdh58 COVID-19 Vaccine (1 - season)2025Influenza Vaccine (#1)2025 08/14/2022, 09/06/2021, 08/29/2021, [...]
--- OUTSIDE RECORDS SUMMARY | 2025-10-07 14:38 | XMS_ITS | Clinical Summary ---
Author Organization [facility] Address [address], [address] [place] [address] Care Team Providers Care Child Life Specialist Name Role Phone Yared Martinez MD Primary Care Provider [phone] Allergies Active AllergyReactionsCriticalityNoted DateCommentsAdhesive Tape07/14/2017 Zurmopjh57/12/1992Gtfuzxxjzxn87/25/2017Hydrocodone-Enuhxvmtgrgkv19/21/2017 Other reaction(s): GI Intolerance pt denies allergy to medication pt reports intolerance to pain meds-- makes me throw up Dtujsknex54/25/2017Oxycodone-Qmjfrgwprvdtv77/21/2017 Other reaction(s): Vicodin Encounters DateTypeDepartmentCare ZdpfWqruhwulsbc36/16/2025 8:35 AM EST - 10/04/2025 11:59 PM ESTHospital Encounter [facility] [address] [id number] Arrived Discharge Disposition: Home or Self Care08/18/2025 9:36 AM EDT - 08/18/2025 11:59 PM EDTHospital Encounter [facility] [address] [id number] Discharge Disposition: Home or Self Carefrom Last 3 Months Family History Medical HistoryRelationNameCommentsCancerFatherCancerMotherRelationNameStatus CommentsFatherMother Social History Tobacco UseTypesPacks/DayYears UsedDateSmoking Tobacco: NeverSmokeless Tobacco: NeverAlcohol UseStandard Drinks/WeekCommentsNever0 (1 standard drink = 0.6 oz pure alcohol)AUDIT-CAnswerDate RecordedQ1: How often do you have a drink containing alcohol?Never05/12/2021Average Number of DrinksNot on file02/28/2021 Frequency of Binge DrinkingNot on file1CommentsUnknownSex and Gender InformationValueDate RecordedSex Assigned at BirthNot on fileLegal Sex Ndleri4011/29/2012 2:43 PM ESTGender IdentityNot on fileSexual OrientationNot on file Plan of Treatment Health MaintenanceDue DateLast DoneCommentsDepression Qokhgp8708/10/1947 Respiratory Syncytial Virus (RSV) or age 60 yrs+ (1 - 1-dose 75+ series)2012Shingles vaccine (2 of 3)Pneumococcal 50+ years Vaccine (2 of 2 - PCV20 or PCV21)Annual Wellness Visit (Medicare)3DTaP/Tdap/Td vaccine (2 - Td or Tdap)/Flu vaccine (#1), 08/29/2021, 08/26/2020COVID-19 Vaccine ( season)2025Hepatitis A vaccineAged OutNo longer eligible based [...] Procedures Procedure NamePriorityDate/TimeAssociated DiagnosisCommentsVITAMIN D 25 HYDROXY Zgmqxlm1610/04/2025 9:20 AM EST URINALYSIS, YJEMWDwofatq41/16/2025 9:20 AM EST LTTCzpupmd63/16/2025 9:20 AM EST BAHJLCMMCczkqqt83/16/2025 9:20 AM EST LIPID XTVXZUiwwucv35/16/2025 9:20 AM EST INSULIN, YQWIJZtesfyl09/16/2025 9:20 AM EST HEMOGLOBIN D8BZalnbsi31/16/2025 9:20 AM EST LMCOMkrjxyl78/16/2025 9:20 AM EST CBC WITH AUTO BPIQYWXZCOJXZbavgef95/16/2025 9:20 AM EST BRAIN NATRIURETIC NIFYFLHVshleng22/16/2025 9:20 AM EST CULTURE, MBGWQHkzkenm80/16/2025 9:20 AM EST VITAMIN D 25 YRMFMDBMjucqcm31/30/2025 9:44 AM EDT TSMIcuujcr34/30/2025 9:44 AM EDT T9Gicvrdn43/30/2025 9:44 AM EDT LIPID DFIDZOqymssk46/30/2025 9:44 AM EDT HEMOGLOBIN Z2BDzceqwr73/30/2025 9:44 AM EDT T3, JVHGUpprpwn72/30/2025 9:44 AM EDT COMPREHENSIVE METABOLIC MOEVEDswwyfd30/30/2025 9:44 AM EDT CBC WITH AUTO GIXSEXGOLKUGAezeoev33/30/2025 9:44 AM EDT from Last 3 Months Results * (ABNORMAL) Urinalysis, Micro (10/04/2025 9:20 AM EST)ComponentValueRef Range Test MethodAnalysis TimePerformed AtPathologist SignatureWBC, UA50 TO 1000 /HPF10/04/2025 9:20 AM [facility] LABRBC, UA2 TO 50 - 2 /HPF 10/04/2025 9:20 [facility] LABBacteria, UA1+(A)None10/04/2025 9:20 AM [facility]-10/04/2025 9:20 AM [facility] LABSpecimen (Source)Anatomical Location / LateralityCollection Method / Volume Collection TimeReceived Time10/04/2025 9:20 AM EST10/04/2025 9:21 AM EST Narrative Authorizing ProviderResult TypeResult StatusDolisseth Martinez MDURINE ORDERABLES Final ResultPerforming OrganizationAddressCity/State/ZIP CodePhone Number [facility] [address] [place] [address], [place] [phone] * (ABNORMAL) CBC with Auto Differential (10/04/2025 9:20 AM EST) Only the most recent of2 resultswithin the time period is included. ComponentValueRef RangeTest MethodAnalysis TimePerformed AtPathologist Signature WBC10.43.5 - 11.0 k/uL10/04/2025 9:20 AM [facility] LABRBC3.85(L) 4.00 - 5.20 m/uL10/04/2025 9:20 AM [facility] [place] [facility] HYOCoyenzbnth95.112.0 - 16.0 g/dL10/04/2025 9:20 AM [facility] Site [facility] CAUSxbamrmvwa43.836.0 - 46.0 %10/04/2025 9:20 AM [facility] [place] [facility] YRNQKV98.280.0 - 100.0 fL 10/04/2025 9:20 AM [facility] ODBPOU86.426.0 - 34.0 pg10/04/2025 9:20 AM [facility] IMNQPII69.031.0 - 37.0 g/dL10/04/2025 9:20 AM ESTTU[facility]PITALPixel PressARD RSWCXI69.312.1 - 15.2 %10/04/2025 9:20 AM [facility] NISUreqnfebg020840 - 450 k/uL10/04/2025 9:20 AM ESTTUCSON [facility]ART HOSPITALFamely OMA DIZDCZ68.36.0 - 12.0 fL10/04/2025 9:20 AM [facility] Neutrophils %77(H)47 - 75 %10/04/2025 9:20 AM [facility] Lymphocytes %13(L)15 - 40 %10/04/2025 9:20 AM [facility] [facility] Monocytes %64 - 8 %10/04/2025 9:20 AM [facility] LABEosinophils %30 - 5 %10/04/2025 9:20 AM [facility] [facility] LABBasophils %10 - 2 %10/04/2025 9:20 AM [facility] LABImmature Granulocytes %00 - 5 %10/04/2025 9:20 AM ESTTUCSON [facility]ART HOSPITALFamely OAM LABNeutrophils Absolute7.90(H)2.5 - 7.0 k/uL 10/04/2025 9:20 AM [facility] LABLymphocytes Absolute1.401.00 - 4.80 k/uL10/04/2025 9:20 AM [facility] LABMonocytes Absolute0.67 0.00 - 1.00 k/uL10/04/2025 9:20 AM [facility] [place] [facility] LABEosinophils Absolute0.350.00 - 0.40 k/uL10/04/2025 9:20 AM ESTTU[facility]ITALFam[facility] LAB Basophils Absolute0.060.00 - 0.20 k/uL10/04/2025 9:20 AM [facility] LABImmature Granulocytes Absolute0.030.00 - 0.30 k/uL10/04/2025 9:20 AM [facility] LABSpecimen (Source)Anatomical Location / LateralityCollection Method / VolumeCollection TimeReceived Time10/04/2025 9:20 AM EST10/04/2025 9:21 AM EST Narrative Authorizing ProviderResult TypeResult StatusDougwild Martinez MDHEMATOLOGY ORDERABLESFinal ResultPerforming OrganizationAddressCity/State/ZIP CodePhone Number [facility] [address] [place] [id number] [phone] * (ABNORMAL) Troponin (10/04/2025 9:20 AM EST)ComponentValueRef RangeTest MethodAnalysis TimePerformed AtPathologist SignatureTroponin, High Sensitivity 48(H)0 - 14 ng/L112/05/2024 9:20 AM InspherionTUCSON HEART HOSPITALPixel PressARD LABComment:High Sensitivity Troponin values cannot be compared with other Troponin methodologies.Specimen (Source)Anatomical Location / LateralityCollection Method / VolumeCollection TimeReceived Time10/04/2025 9:20 AM EST10/04/2025 9:21 AM EST Narrative Authorizing ProviderResult TypeResult StatusYared Martinez MDCHEMISTRY ORDERABLES Final ResultPerforming OrganizationAddressCity/State/ZIP CodePhone Number [facility] [address] [place] [id number], [place] [phone] * Vitamin D 25 Hydroxy (10/04/2025 9:20 AM EST) Only the most recent of2 resultswithin the time period is included. ComponentValueRef RangeTest MethodAnalysis TimePerformed AtPathologist Signature Vit D, 25-Kcmzkvx18.230.0 - 100.0 ng/mL10/04/2025 9:20 AM InspherionTUCSON HEART HOSPITALAdvanced Cell Technology Comment: Reference Range: Vitamin D status ? Range Deficiency <20 ng/mL Mild Deficiency ? 20-30 ng/mL Sufficiency ?30-100 ng/mL Toxicity >100 ng/mL Specimen (Source)Anatomical Location / LateralityCollection Method / Volume Collection TimeReceived Time10/04/2025 9:20 AM EST10/04/2025 9:21 AM EST Narrative Authorizing ProviderResult TypeResult StatusYared Martinez MDCHEMISTRY ORDERABLES Final ResultPerforming OrganizationAddressCity/State/ZIP CodePhone Number [facility] [address] [place] [address], [place] [phone] [address] [place] [address], [place] [phone] * Insulin, total (10/04/2025 9:20 AM EST)ComponentValueRef RangeTest Method Analysis TimePerformed AtPathologist SignatureInsulin PouolvyMYO15/16/2025 9:20 AM InspherionTUCSON HEART HOSPITALPixel PressARD LABInsulin5.7mU/L112/05/2024 9:20 AM vufindInsulin Reference Range:10/04/2025 9:20 AM [facility] Comment: Fastin.6-24.9 30 min: ??20-112 60 min: ??29-88 90 min: ??26-84 120 min: 22-79 Specimen (Source)Anatomical Location / LateralityCollection Method / Volume Collection TimeReceived Time10/04/2025 9:20 AM EST10/04/2025 9:21 AM EST Narrative Authorizing ProviderResult TypeResult StatusDougwild Martinez MDCHEMISTRY ORDERABLES Final ResultPerforming OrganizationAddressCity/State/[facility] CodePhone Number [facility] [address] [place] [address], [place] [phone] [facility] [address] [phone] * (ABNORMAL) Culture, Urine (10/04/2025 9:20 AM EST)ComponentValueRef RangeTest MethodAnalysis TimePerformed AtPathologist SignatureSpecimen Description.URINE 10/04/2025 9:20 AM vufindCultureESCHERICHIA COLI >100,000 CFU/ML Identification by MALDI-TOF(A)10/04/2025 9:20 AM vufind CultureESCHERICHIA COLI >100,000 CFU/ML 2ND COLONY TYPE Identification by MALDI-TOF10/04/2025 9:20 AM [facility] LABORATORIESSpecimen (Source)Anatomical Location / LateralityCollection Method / [...] GENERAL ORDERABLESFinal ResultPerforming OrganizationAddressCity/State/ZIP Code Phone Number [facility] [address] [place] [address], [place] [phone] [address] [place], [place] [address] [phone] * TSH (10/04/2025 9:20 AM EST) Only the most recent of2 resultswithin the time period is included. ComponentValueRef RangeTest MethodAnalysis TimePerformed AtPathologist Signature TSH0.450.27 - 4.20 uIU/mL10/04/2025 9:20 AM [facility]FA[facility] Neofect LABSpecimen (Source)Anatomical Location / LateralityCollection Method / VolumeCollection TimeReceived Time10/04/2025 9:20 AM EST10/04/2025 9:21 AM EST Narrative Authorizing ProviderResult TypeResult StatusYared Martinez MDCHEMISTRY ORDERABLES Final ResultPerforming OrganizationAddressCity/State/ZIP CodePhone Number [facility] [address] [place] [address], [place] [phone] * (ABNORMAL) Brain Natriuretic Peptide (10/04/2025 9:20 AM EST)ComponentValueRef RangeTest MethodAnalysis TimePerformed AtPathologist SignatureNT Pro-BNP2,052 (H)<300 pg/mL10/04/2025 9:20 AM ESTFA[facility] Site TourARD LABComment: An age-independent cutoff point of 300 pg/ml has a 98% negative predictive value excluding acute heart failure. Specimen (Source)Anatomical Location / LateralityCollection Method / Volume Collection TimeReceived Time10/04/2025 9:20 AM EST10/04/2025 9:21 AM EST Narrative Authorizing ProviderResult TypeResult Statuslisseth Braden Michelle MDCHEMISTRY ORDERABLES Final ResultPerforming OrganizationAddressCity/State/ZIP CodePhone Number [facility] [address] [place] [address], [place] [phone] * Iron (10/04/2025 9:20 AM EST)ComponentValueRef RangeTest MethodAnalysis Time Performed AtPathologist IjkznvpekToqg5871 - 145 ug/dL10/04/2025 9:20 AM EST Private OutletSpecimen (Source)Anatomical Location / LateralityCollection Method / VolumeCollection TimeReceived Time10/04/2025 9:20 AM EST10/04/2025 9:21 AM EST Narrative Authorizing ProviderResult TypeResult StatusYared Braden Michelle MDCHEMISTRY ORDERABLES Final ResultPerforming OrganizationAddressCity/State/ZIP CodePhone Number [facility] [address] [place] [address], [place] [phone] [place] [address], [place] [phone] * (ABNORMAL) Hemoglobin A1C (10/04/2025 9:20 AM EST) Only the most recent of2 resultswithin the time period is included. ComponentValueRef RangeTest MethodAnalysis TimePerformed AtPathologist Signature Hemoglobin A1C6.3(H)4.0 - 6.0 %10/04/2025 9:20 AM ESTMERInRoom Broadcasting LABORATORIESEstimated Avg Mlotnde745by/dL10/04/2025 9:20 AM ESTMERInRoom Broadcasting LABORATORIESComment: The ADA and AACC recommend providing the estimated average glucose result to permit better patient understanding of their HBA1c result. Specimen (Source)Anatomical Location / LateralityCollection Method / Volume Collection TimeReceived Time10/04/2025 9:20 AM EST10/04/2025 9:21 AM EST Narrative Authorizing ProviderResult TypeResult StatusDougwild Martinez MDCHEMISTRY ORDERABLES Final ResultPerforming OrganizationAddressCity/State/ZIP CodePhone Number [facility] [address] [place] [address], [place] [phone] [facility] [address] [place] [address], [place] [phone] * (ABNORMAL) Lipid Panel (10/04/2025 9:20 AM EST) Only the most recent of2 resultswithin the time period is included. ComponentValueRef RangeTest MethodAnalysis TimePerformed AtPathologist Signature Cholesterol, Uakmw9167 - 199 mg/dL10/04/2025 9:20 AM vufind Comment: Cholesterol Guidelines: <200 Desirable 200-240 ??Borderline >240 Undesirable HDL33(L)>40 mg/dL10/04/2025 9:20 AM [facility] LABORATORIESComment: HDL Guidelines: <40 Undesirable 40-59 ?Borderline >59 Desirable LDL Prhqygxvelx578(H)0 - 100 mg/dL10/04/2025 9:20 AM [facility] Comment: LDL Guidelines: <100 Desirable 100-129 ?? Near to/above Desirable 130-159 ?? Borderline >159 Undesirable Direct (measured) LDL and calculated LDL are not interchangeable tests. Chol/HDL Ratio4.6<5.012 9:20 AM ESTPinoyTravel OKKNZYZHZAGLOrygnsrrtdaye39<150 mg/dL10/04/2025 9:20 AM ESTPinoyTravel LABORATORIESComment: Triglyceride Guidelines: <150 Desirable 150-199 ??Borderline 200-499 ??High >499 Very high Based on AHA Guidelines for fasting triglyceride, July 2012. FZRS217 - 30 mg/dL10/04/2025 9:20 AM ESTMERCY LABORATORIESSpecimen (Source) Anatomical Location / LateralityCollection Method / VolumeCollection Time Received Time10/04/2025 9:20 AM EST10/04/2025 9:21 AM EST Narrative Authorizing ProviderResult TypeResult StatusYared Sampson Michelle MDCHEMISTRY ORDERABLES Final ResultPerforming OrganizationAddressty/State/ZIP CodePhone Number [facility] [address] [facility] [place] [address], [place] [phone] [place] [address], [place] [phone] * T3, Free (08/18/2025 9:44 AM EDT)ComponentValueRef RangeTest MethodAnalysis TimePerformed AtPathologist SignatureT3, Free2.832.00 - 4.40 pg/mL08/18/2025 9:44 AM EDTMERCY LABORATORIESSpecimen (Source)Anatomical Location / Laterality Collection Method / VolumeCollection TimeReceived Time08/18/2025 9:44 AM EDT 08/18/2025 9:45 AM EDT Narrative Authorizing ProviderResult TypeResult StatusYared Martinez MDCHEMISTRY ORDERABLES Final ResultPerforming OrganizationAddressty/State/ZIP CodePhone Number [facility] [address] [facility] [address] [place] [address], [place] [phone] [facility] [address] [place] [address], [place] [phone] * (ABNORMAL) T4 (08/18/2025 9:44 AM EDT)ComponentValueRef RangeTest Method Analysis TimePerformed AtPathologist SignatureThyroxine (T4)4.3(L)4.5 - 11.7 ug/dL08/18/2025 9:44 AM EDTMERCY LABORATORIESSpecimen (Source)Anatomical Location / LateralityCollection Method / VolumeCollection TimeReceived Time 08/18/2025 9:44 AM EDT1 9:45 AM EDT Narrative Authorizing ProviderResult TypeResult StatusYared Martinez MDCHEMISTRY ORDERABLES Final ResultPerforming OrganizationAddressCity/State/ZIP CodePhone Number [facility] [address] [place] [address], [place] [phone] [address] [place] [address], [place] [phone] * (ABNORMAL) Comprehensive Metabolic Panel (08/18/2025 9:44 AM EDT)Component ValueRef RangeTest MethodAnalysis TimePerformed AtPathologist SignatureSodium 986078 - 144 mmol/L1 9:44 AM [facility] LABPotassium5.2 3.7 - 5.3 mmol/L1 9:44 AM [facility] XQIVphdihmd159(H)98 - 107 mmol/L1 9:44 AM [facility] LLVTK372(L)20 - 31 mmol/L1 9:44 AM [facility] LABAnion Jkm933 - 17 mmol/L 08/18/2025 9:44 AM [facility] VATOlmssng436(H)70 - 99 mg/dL 08/18/2025 9:44 AM [facility] ESGMIM66(H)8 - 23 mg/dL08/18/2025 9:44 AM [facility] LABCreatinine1.4(H)0.5 - 0.9 mg/dL08/18/2025 9:44 AM [facility] LABEst, Glom Filt Rate36(L)>60 mL/min/1.73m2 08/18/2025 9:44 AM WellikoARD LABComment: ? These results are not intended [...] following therapy that affects renal tubular secretion. Eqkmpio17.9(H)8.6 - 10.4 mg/dL08/18/2025 9:44 AM EDDoodleDeals Inc.ARD LAB Total Protein7.06.4 - 8.3 g/dL08/18/2025 9:44 AM EDDoodleDeals Inc.ARD LAB Albumin3.63.5 - 5.2 g/dL08/18/2025 9:44 AM EDDoodleDeals Inc.ARD LAB Albumin/Globulin Ratio1.11.0 - 2.510 9:44 AM EDDoodleDeals Inc.ARD LAB Total Bilirubin0.50.3 - 1.2 mg/dL08/18/2025 9:44 AM EDDoodleDeals Inc.ARD LAB Alkaline Zubdogkgyxd8724 - 104 U/L1 9:44 AM [facility] SMB166 - 33 U/L1 9:44 AM [facility]leDeals Inc.ARD VOJOUB78<32 U/L 08/18/2025 9:44 AM [facility] Inc.ARD LABSpecimen (Source)Anatomical Location / LateralityCollection Method / VolumeCollection TimeReceived Time 08/18/2025 9:44 AM EDT1 9:45 AM EDT Narrative Authorizing ProviderResult TypeResult StatusDougwild Martinez MDCHEMISTRY ORDERABLES Final ResultPerforming OrganizationAddressCity/State/ZIP CodePhone Number [facility] [address] [place] [address], [place] [phone] from Last 3 Months Insurance MemberSubscriberPlan / Payer (Effective 2019-Present)Name:Bernarda Lord Relation to Subscriber:SelfName:Bernarda Lord Payer ID:Not on file Type:Not on file Address: [place] [id number] Care Teams Team MemberRelationshipSpecialtyStart DateEnd Yared Martinez MD [address] [place] [address] PCP - GeneralFamily Medicine02/25/23
== END 2025-10-06 12:41 | disposition home health service (06) ==
LOC: ER 22:17 → MS 10-06 11:48
PROVIDERS: Emergency Medicine; Admitting Provider Internal Medicine; Emergency Provider Internal Medicine; PCP Family Medicine; Visit Provider Student in an Organized Health Care Education/Training Program
DX: I50.23 Acute on chronic systolic (congestive) heart failure (principal); E03.9 Hypothyroidism, unspecified; E11.22 Type 2 diabetes mellitus with diabetic chronic kidney disease; Z79.4 Long term (current) use of insulin; N39.0 Urinary tract infection, site not specified; E88.09 Other disorders of plasma-protein metabolism, not elsewhere classified; N18.30 Chronic kidney disease, stage 3 unspecified; B96.89 Other specified bacterial agents as the cause of diseases classified elsewhere
CPT/HCPCS: 36415; 71045; 76775; 80048; 80053; 80061; 80076; 81001; 82009; 82043; 82570; 82607; 82728; 82948; 83036; 83540; 83550; 83880; 84156; 84484; 85025; 87086; 87088; 87186; 93005; 96365; 96366; 96372; 96375; 97162; 97165; 97530; 97535; 99285; G0328; G0378; J0696; J1290; J1650; J1938